=== PATIENT | male | born 1960 | race Caucasian/White ===

== ENCOUNTER → 2018-03-15 | Outpatient (CLI) | payer OTHER ==
--- NOTE | 2018-03-15 08:53 | US ---
EXAMINATION TYPE: US duplex aorta DATE OF EXAM: 03/15/2018 COMPARISON: NONE CLINICAL HISTORY: I65.23 Occlusion/stenosis bilateral carotid arteri. EXAM MEASUREMENTS: Abdominal Aorta: Proximal: 2.6 x 2.1 cm Mid: 1.9 x 2.0 cm Distal: 2.1 x 1.8 cm Bifurcation: 0.8 and 0.7 cm. This area is obscured by gas in transverse view. Questionable mild ectasia of aorta; no calcifications of aorta IMPRESSION: 1. Minimal ectasia of the distal abdominal aorta. No aneurysm is evident. 2. Atherosclerotic changes within the aorta.
--- NOTE | 2018-03-15 09:00 | US ---
EXAMINATION TYPE: US carotid duplex BILAT DATE OF EXAM: 03/15/2018 COMPARISON: NONE CLINICAL HISTORY: I65.23 Occlusion/stenosis bilateral carotid arteri. EXAM MEASUREMENTS: RIGHT: Peak Systolic Velocity (PSV) cm/sec ----- Right CCA: 77.6 ----- Right ICA: 79.3 ----- Right ECA: 89.5 ICA/CCA ratio: 1.0 RIGHT: End Diastole cm/sec ----- Right CCA: 30.3 ----- Right ICA: 34.3 ----- Right ECA: 25.6 LEFT: Peak Systolic Velocity (PSV) cm/sec ----- Left CCA: 89.0 ----- Left ICA: 103.9 ----- Left ECA: 79.8 ICA/CCA ratio: 1.2 LEFT: End Diastole cm/sec ----- Left CCA: 32.8 ----- Left ICA: 38.5 ----- Left ECA: 23.6 VERTEBRALS (direction of flow): Right Vertebral: Antegrade Left Vertebral: Antegrade Rhythm: Normal Mild atherosclerotic changes in bilateral bulbs and heterogeneous plaque in left proximal ICA There is a small plaque without stenosis within the right carotid bulb. Intimal thickening is present on the left. A large plaque is at the left internal carotid artery. Significant flow-limiting stenos is by velocity and ovaries not evident. There is turbulent flow and filling of the acoustic window Do ppler waveforms. IMPRESSION: 1. Atheromatous plaquing without significant flow-limiting stenosis. Criteria for Assigning % of Stenosis / Diameter reduction (Estimation based on the indirect measurements of the internal carotid artery velocities (ICA PSV). 1. Normal (no stenosis)=ICA PSV < 125 cm/s: ratio < 2.0: ICA EDV<40 cm/s. 2. Less than 50% stenosis=ICA PSV < 125 cm/s: ratio < 2.0: ICA EDV<40 cm/s. 3. 50 to 69% stenosis=ICA PSV of 125 to 230 cm/s: ration 2.0 ? 4.0: ICA EDV 40-100 cm/s. 4. Greater than 70% stenosis to near occlusion= ICA PSV > 230 cm/s: ratio > 4.0: ICA EDV > 100 cm/s. 5. Near occlusion= ICA PSV velocities may be low or undetectable: variable ratio and ICA EDV. 6. Total occlusion=unable to detect flow.
== END ==
LOC: RADUSWWP 06:49
PROVIDERS: ATTEND Family Medicine
DX: I70.0 Atherosclerosis of aorta (principal); I65.23 Occlusion and stenosis of bilateral carotid arteries
CPT/HCPCS: 93880; 93979

== ENCOUNTER → 2018-04-30 | Outpatient (CLI) | payer OTHER ==
--- NOTE | 2018-04-30 12:47 | CTL ---
EXAMINATION TYPE: CT Low Dose Lung DATE OF EXAM ORDERED: 04/30/2018 HISTORY: . Lung cancer screening CT DLP: [address] CTDI: 1.95 mGy Automated exposure control for dose reduction was used. SCREENING VISIT: Initial COMPARISON: None TECHNIQUE: Low dose computed tomography scan was performed through the chest at 1 mm thick sections a nd reconstructed images in the coronal plane at [address] DIAGNOSTIC QUALITY: Limited, but interpretable FINDINGS: LUNG NODULES: Present, detailed below: There is thickening at the left apex estimated at 2.6 x 2.1 cm this could be some apical scarring. Mo nitoring is recommended. There is some thickening along the right lateral apex measuring 1.6 x 1.2 cm in size. Series 5 image 51. LUNGS: COPD: Severity: Moderate. This includes emphysematous blebs and bulla as well as some mild peribronch ial thickening could be chronic bronchitis. Fibrosis: Severity: Mild Lymph nodes: None Other findings: None RIGHT PLEURAL SPACE: Effusion: None Calcification: None Thickening: None Pneumothorax: None LEFT PLEURAL SPACE: Effusion: None Calcification: None Thickening: None Pneumothorax: None HEART: Heart Size: Normal Coronary calcification: Mild Pericardial effusion: None OTHER FINDINGS: Upper abdomen: Normal Bony thorax: Normal Supraclavicular region: Normal Other: Ascending thoracic aorta at the level of main pulmonary artery is 3.7 cm the main pulmonary ar emily 0.9 cm. IMPRESSION: 1. Probably benign findings FOLLOW UP CT CHEST RECOMMENDATION: Yes follow-up standard CT chest [address] LUNG RAD: Lung-Rad 3 Probably Benign
== END | disposition home or self-care (01) ==
LOC: RADCTMAIN 12:16
PROVIDERS: ATTEND Family Medicine
DX: Z12.2 Encounter for screening for malignant neoplasm of respiratory organs (principal); Z87.891 Personal history of nicotine dependence

== ENCOUNTER → 2018-08-04 | Outpatient (CLI) | payer OTHER ==
--- NOTE | 2018-08-04 08:41 | CTL ---
EXAMINATION TYPE: CT Low Dose Lung DATE OF EXAM ORDERED: 08/04/2018 HISTORY: Long-term tobacco use. Abnormal prior study. Lung cancer screening CT DLP: [address] CTDI: 1.61 mGy Automated exposure control for dose reduction was used. SCREENING VISIT: Second study COMPARISON: Low-dose lung screening CT April 30, 2018 TECHNIQUE: Low dose computed tomography scan was performed through the chest at 1 mm thick sections a nd reconstructed images in the coronal plane at [address] DIAGNOSTIC QUALITY: Satisfactory FINDINGS: LUNG NODULES: No new nodules are evident. Persistent stable right apical bulla and bleb formation with pleural thickening, stable scarlike opac ity posterior lateral right lung apex measuring 2.3 x 1.1 cm axial image 45. Findings favor postinfla mmatory change. Focal masslike posterior left apical pleural/parenchymal scarring axial image 24 measures 2.6 x 1.7 c m unchanged from prior. This also strongly favors postinflammatory change. LUNGS: COPD: Severity: Moderate Fibrosis: Severity: Moderate biapical Lymph nodes: Prominent but subcentimeter Other findings: None BILATERAL PLEURAL SPACE: Effusion: None Calcification: None Thickening: None Pneumothorax: None HEART: Heart Size: Normal Coronary calcification: Mild to moderate Pericardial effusion: None OTHER FINDINGS: Upper abdomen: None Bony thorax: Mild multilevel spurring Supraclavicular region: None Other: Aorta measures up to 3.6 cm at level of the bifurcation. Enlarged right and left pulmonary art eries redemonstrated, CT findings suggestive of underlying pulmonary artery hypertension. IMPRESSION: Chronic emphysematous and postinflammatory changes. No suspicious nodules. FOLLOW UP CT CHEST RECOMMENDATION: Annual low-dose lung screening CT CT LUNG RAD: Lung-Rad 2 Benign Appearance or Behavior
== END ==
LOC: RADCTMAIN 07:17
PROVIDERS: ATTEND Family Medicine
DX: Z12.2 Encounter for screening for malignant neoplasm of respiratory organs (principal); J43.9 Emphysema, unspecified; Z87.891 Personal history of nicotine dependence

== ENCOUNTER → 2019-04-08 | Outpatient (CLI) | payer OTHER ==
[2019-04-08 10:36] LABS: HCT 42.3 % (39.0-53.0); HGB 13.8 gm/dL (13.0-17.5); MCH 31.9 pg (25.0-35.0); MCHC 32.6 g/dL (31.0-37.0); MCV 97.9 fL (80.0-100.0); Mean Platelet Volume 7.4; Platelet Count 354 k/uL (150-450); RBC 4.32 m/uL (4.30-5.90); WBC 9.9 k/uL (3.8-10.6)
[2019-04-08 10:44] LABS: ALT 14 U/L (4-49); AST 21 U/L (17-59); African American GFR (CKD) >90 (>60 ml/min/1.73 sqM); Albumin 4.2 g/dL (3.5-5.0); Alkaline Phosphatase 82 U/L (38-126); Anion Gap 7 mmol/L; Blood Urea Nitrogen 12 mg/dL (9-20); Calcium 9.8 mg/dL (8.4-10.2); Carbon Dioxide 27 mmol/L (22-30); Chloride 103 mmol/L (98-107); Glucose 94 mg/dL (74-99); Non-African American GFR(CKD) 87 (>60 ml/min/1.73 sqM); Potassium 4.6 mmol/L (3.5-5.1); Sodium 137 mmol/L (137-145); Total Bilirubin 0.5 mg/dL (0.2-1.3); Total Protein 6.9 g/dL (6.3-8.2)
[2019-04-08 10:51] LABS: INR 0.9 (<1.2); Prothrombin Time 9.7 sec (9.0-12.0)
[2019-04-08 10:56] LABS: Appearance,Urine Clear (Clear); Bacteria,Urine Rare /hpf; Bilirubin,Urine Negative (Negative); Blood,Urine Trace (Negative); Color,Urine Yellow; Glucose,Urine (UA) Negative (Negative); Ketones,Urine Negative (Negative); Leukocyte Esterase,Urine Negative (Negative); Mucus,Urine Rare /hpf; Nitrite,Urine Negative (Negative); Protein,Urine Trace (Negative); RBC,Urine 1 /hpf (0-5); Specific Gravity,Urine 1.008 (1.001-1.035); Urobilinogen,Urine <2.0 mg/dL (<2.0); WBC,Urine <1 /hpf (0-5)
== END | disposition home or self-care (01) ==
LOC: LABPAT 09:53
PROVIDERS: ATTEND Orthopaedic Surgery Sports Medicine
DX: Z01.818 Encounter for other preprocedural examination (principal); Z01.812 Encounter for preprocedural laboratory examination
CPT/HCPCS: 80053; 81001; 85027; 85610; 85730; 87070; 93005

== ENCOUNTER 2019-04-28 10:52 | Day surgery (SDC) | payer OTHER ==
[2019-04-21 13:48] VITALS: BMI 23.1
[~2019-04-28 10:52] MED LIST: ACETAMINOPHEN TAB 500 MG TAB PO ONE; DEXAMETHASONE SOD PHOSPHATE 10 MG/ML 1 ML VIAL IV ONE; GABAPENTIN 300 MG CAP PO ONE; HYDROmorphone 0.5 MG/0.5 ML SYRINGE IVP PRN; LIDOCAINE 1% 20 ML VIAL (10MG/ML) FOR IV START INTRADERMA PRN; MELOXICAM 7.5 MG TAB PO ONE; MIDAZOLAM 2 MG/2 ML VIAL IV PRN; ONDANSETRON 4 MG/2 ML VIAL IVP ONE; ROPIVACAINE 246.25 MG, EPINEPHrine 0.5 MG, KETOROLAC 30 MG, cloNIDine HCL/PF 80 MCG, WA... MISCELLANE ONE; SCOPOLAMINE 1.5MG/72HR PATCH TRANSDERM ONE; TRANEXAMIC ACID 1,000 MG in SODIUM CHLORIDE 0.9% 100 ML IVPB ONE
[2019-04-28] MEDS: LACTATED RINGERS 1,000 ML IV SCH ×4 (11:19→23:57)
[2019-04-28] MEDS ORDERED: fentaNYL (PF) 50 MCG/ML 2 ML AMP IV ONE (11:40)
[2019-04-28] MEDS ORDERED: TRANEXAMIC ACID 1,000 MG/10 ML VIAL ONE (12:30)
[2019-04-28] MEDS ORDERED: PROPOFOL 10 MG/ML 20 ML VIAL IV ONE (12:30)
[2019-04-28] MEDS ORDERED: MIDAZOLAM 2 MG/2 ML VIAL ONE (12:30)
[2019-04-28] MEDS ORDERED: fentaNYL (PF) 50 MCG/ML 2 ML AMP ONE (12:30)
[2019-04-28] MEDS ORDERED: SODIUM CHLORIDE 0.9% 100 ML BAG ONE (12:30)
--- NOTE | 2019-04-28 12:31 | P.ANPRN ---
Procedure Note - Anesthesia - Nerve Block Performed Left Adductor Canal Infusion Time Out Performed: Yes ([id number]) Date of Procedure: 04/28/19 Procedure Start Time: 11:40 Procedure Stop Time: 11:46 Location of Patient: PreOp Indication: Acute Post-Operative Pain, Requested by Surgeon Specifically requested for management of pain by DrBrittany: Colton Yañez Sedation Type: Sedate with meaningful contact maintained Preparation: Sterile Prep Position: Supine Catheter Depth at Skin (cm): 9 Catheter: Indwelling Needle Types: Pajunk Needle Gauge: 20 Ultrasound used to visualize needle placement: Yes Ultrasound used to observe medication spread: Yes Injectate: 0.5% Ropivacaine (see comment for volume) (20cc) Blood Aspirated: No Pain Paresthesia on Injection Noted: No Resistance on Injection: Normal Image Stored and Saved: Yes Events: Uneventful and Well Tolerated
[2019-04-28] MEDS ORDERED: ROPIVACAINE 0.2%-NS ON-Q PUMP 1,090 MG, EMPTY PAIN BALL 1 EACH MISCELLANE PRN (14:50)
[2019-04-28] MEDS ORDERED: MAGNESIUM HYDROXIDE 2,400 MG/10 ML CUP PO PRN (14:54)
[2019-04-28] MEDS ORDERED: hydrOXYzine PAMOATE 25 MG CAP PO PRN (14:54)
[2019-04-28] MEDS ORDERED: ACETAMINOPHEN TAB 325 MG TAB PO PRN (14:54)
[2019-04-28] MEDS ORDERED: NALOXONE 0.4 MG/ML 1 ML VIAL IV PRN (14:54)
[2019-04-28] MEDS ORDERED: BISACODYL 10 MG SUPP RECTAL PRN (14:54)
[2019-04-28] MEDS ORDERED: DIAZEPAM 5 MG TAB PO PRN (14:54)
[2019-04-28] MEDS ORDERED: TEMAZEPAM 15 MG CAP PO PRN (14:54)
[2019-04-28] MEDS ORDERED: ONDANSETRON 4 MG/2 ML VIAL IVP PRN (14:54)
[2019-04-28] MEDS ORDERED: HYDROcodone/APAP 5-325MG 1 EACH TAB PO PRN (14:54)
[2019-04-28] MEDS ORDERED: traMADol 50 MG TAB PO PRN (14:54)
[2019-04-28] MEDS ORDERED: HYDROmorphone 0.5 MG/0.5 ML SYRINGE IVP PRN ×2 (14:54)
[2019-04-28] MEDS ORDERED: NA PHOS,M-B/NA PHOS,DI-BA 133 ML ENEMA RECTAL PRN (14:54)
--- NOTE | 2019-04-28 15:19 | XR ---
EXAMINATION TYPE: XR knee limited LT DATE OF EXAM: 04/28/2019 CLINICAL HISTORY: Postoperative evaluation Two views of the left knee are submitted. Identified are changes of total knee arthroplasty with fem oral and tibial components appearing well seated. Postsurgical soft tissue changes are noted. Align ment is anatomic.
[2019-04-28] MEDS: HYDROcodone/APAP 10-325MG 1 EACH TAB PO PRN ×2 (17:29→23:57)
[2019-04-28] MEDS: HYDROmorphone 1 MG/ML 1 ML SYRINGE IVP PRN ×2 (18:23→21:48)
[2019-04-28] MEDS: ASPIRIN 325 MG TAB PO SCH (20:07)
[2019-04-28] MEDS ORDERED: SENNOSIDES-DOCUSATE SODIUM 1 EACH TAB PO SCH (21:00)
[2019-04-28] MEDS ORDERED: hydrALAZINE HCL 10 MG TAB PO PRN (22:11)
--- NOTE | 2019-04-28 22:15 | P.CONS ---
History of Present Illness - Reason for Consult Consult date: 04/28/19 Consult for medical management - History of Present Illness The patient is a 59-year-old male with a past medical history of COPD and ongoing tobacco use who is currently admitted to the primary orthopedic service who is now post op #0 after having total left knee replacement with Dr. Mullen. The patient is doing well denies any chest pain or shortness of breath, he has been up and ambulatory to the restroom and back, he reports his pain as moderate as a 5 out of 10. Denies any nausea or vomiting or abdominal pain patient has been working with his incentive spirometry and pulling approximately 4000 cc. Review of Systems Pertinent positives per HPI all other review of systems otherwise negative Past Medical History Past Medical History: COPD, Osteoarthritis (OA) Additional Past Medical History / Comment(s): tinnutis left ear History of Any Multi-Drug Resistant Organisms: None Reported Past Surgical History: Hernia Repair, Orthopedic Surgery Additional Past Surgical History / Comment(s): left knee arthroscopy, left knee surgery on knee cap, exploratory surgery on back after injury with bhaskar nail, Past Anesthesia/Blood Transfusion Reactions: Previous Problems w/ Anesthesia Additional Past Anesthesia/Blood Transfusion Reaction / Comm: "heart rate jumped twice" during hernia surgery Past Psychological History: No Psychological Hx Reported Smoking Status: Current some day smoker Past Alcohol Use History: None Reported Additional Past Alcohol Use History / Comment(s): smoking 1/2 PPD. started smoking age 7 Past Drug Use History: Marijuana - Past Family History Mother Family Medical History: Cancer Medications and Allergies Home Medications Medication Instructions Recorded Confirmed Type Aspirin [Adult Low Dose Aspirin EC] 81 mg PO DAILY 04/21/19 04/21/19 History Naproxen Sodium [Aleve] 220 mg PO Q12HR PRN 04/21/19 04/21/19 History Allergies Allergy/AdvReac Type Severity Reaction Status Date / Time meperidine [From Demerol] Allergy Vomiting Verified 04/28/19 11:15 Physical Exam Vitals: Vital Signs Temp Pulse Resp BP Pulse Ox 04/28/19 18:59 97.4 F L 71 12 167/99 91 L 04/28/19 17:50 67 180/93 95 04/28/19 17:35 59 L 180/94 95 04/28/19 17:20 63 183/81 96 04/28/19 17:05 62 157/95 95 04/28/19 16:50 80 144/96 93 L 04/28/19 16:35 69 142/88 95 04/28/19 16:20 61 133/69 95 04/28/19 16:16 97.0 F L 65 16 135/80 97 04/28/19 16:05 65 129/83 95 04/28/19 15:30 55 L 16 120/74 96 04/28/19 15:15 58 L 16 120/74 95 04/28/19 14:59 54 L 16 112/73 96 04/28/19 14:44 96.8 F L 53 L 16 105/70 96 04/28/19 14:14 52 L 16 115/75 96 04/28/19 11:10 98.4 F 64 16 144/84 94 L Intake and Output 04/28/19 04/28/19 04/28/19 06:59 14:59 22:59 Intake Total 1260 825 Output Total 100 800 Balance 1160 25 Intake: IV 1260 100 Intake, IV Titration 500 Amount Lactated Ringers 1,000 ml 500 @ 100 mls/hr IV .Q10H [facility] Rx#:[id number] Oral 225 Output: Urine 800 Estimated Blood Loss 100 Other: # Voids 1 Weight 75.7 kg 75.7 kg Constitutional: No acute distress, conversant, pleasant Eyes: Anicteric sclerae, moist conjunctiva, no lid-lag, PERRLA ENMT: NC/AT,Oropharynx clear, no erythema, exudates Neck:Supple, FROM, no masses, or JVD, No carotid bruits; No thyromegaly Lungs: Clear to auscultation, Clear to percussion, Normal respiratory effort, no accessory muscle use Cardiovascular: Heart regular in rate and rhythm, No murmurs, gallops, or rubs no peripheral edema Abdominal: Soft Nontender, nom distended, no guarding, no rebound or rigidity, Normoactive bowel sounds No hepatomegaly, No splenomegaly, No palpable mass No abdominal wall hernia noted Skin: Normal temperature, tone, texture, turgor, No induration No subcutaneous nodules, No rash, lesions, No ulcers Extremities: EHL and FHL intact bilaterally, no neurovascular compromise, left knee dressing noted without any significant discharge or drainage into the bandages Psychiatric: Alert and oriented to person, place and time, Appropriate affect Intact judgement Neuro: Muscles Strength 5/5 in all 4 extremities, Sensation to light touch grossly present throughout, Cranial nerves II-XII grossly intact. No focal sensory deficits Assessment and Plan Assessment: COPD Smoker Elevated blood pressure without history of hypertension Post left knee replacement History of osteoarthritis Plan: The patient is admitted to primary orthopedic service and is postop day #0 to having left total knee replacement will defer to primary team regarding ongoing analgesic therapy, the patient does have a left adductor cannel infusion of ropivacaine going, he has been up and ambulatory to the restroom. He is noted to have elevated blood pressure without history of hypertension, will start when necessary hydralazine and continue to monitor blood pressure closely. Plan to follow up with cbc, currently on perioperative antibiotics and continue with cefazolin. Continue to follow patient's clinical course For further questions please not hesitate to contact Inpatient Team. We'll continue to follow this patient with you
--- NOTE | 2019-04-28 23:20 | OP ---
OPERATIVE REPORT DATE OF PROCEDURE: 04/28/2019. SURGEON: Colton Yañez M.D. [employer]IN[employer] DEPARTMENT MANAGER: AVILA Su. PREOPERATIVE DIAGNOSIS: Left knee osteoarthrosis. POSTOPERATIVE DIAGNOSIS: Left knee osteoarthrosis. OPERATION: Left total knee arthroplasty. ANESTHESIA: Spinal with sedation. ESTIMATED BLOOD LOSS: 100 mL. TOURNIQUET: Tourniquet time was 55 minutes at 250 mmHg. COMPLICATIONS: None apparent. DRAINS: None. DISPOSITION: Post-Anesthesia Care Unit. INDICATIONS: Dany is a very pleasant 59-year-old male with longstanding history of left knee pain. History and physical examination are consistent with advanced left knee osteoarthrosis. He has been through significant nonoperative management up to this point. Further treatment options were discussed and he has decided to go forward with left total knee arthroplasty. The risks of the procedure were discussed with him in detail. These risks include but are not limited to risk of infection, nerve damage, bleeding, pain, and a small risk of deep vein thrombosis which could lead to fatal pulmonary embolism. There is also risk of loosening of the implant which could require revision operation. The patient understands these risks. All of his questions were answered to his satisfaction. Appropriate informed consent was obtained. DESCRIPTION OF PROCEDURE: The patient was identified in the preoperative holding area. Surgical site was marked by both the patient and myself. He was given 2 grams of Ancef IV for prophylactic purposes. He was then transferred to the operative suite. He was placed supine on the operating room table. Spinal anesthetic was then administered and dosed per the anesthesia department without apparent complication. Examination under anesthesia was then performed. The patient was 2 to 3 degrees shy of full extension. He had 100 degrees of flexion, and the medial collateral ligament, lateral collateral ligament and posterior cruciate ligaments were stable. The tourniquet was then placed high on the left upper thigh, well padded in preparation for surgery. The patient's left lower extremity was then prepped and draped in the usual sterile fashion. A standard surgical pause was then undertaken to ensure that we were operating on the correct site and that appropriate preoperative antibiotics had been given. All staff in the room were in agreement and we proceeded. The outlines of the patella were marked with a surgical pen. A planned 12 cm vertical incision was marked with a surgical pen. He had a previous medial arthrotomy. We did incorporate the medial arthrotomy incision into our incision so the incision curved medially to incorporate this previous incision. The leg was then exsanguinated with an Esmarch dressing. The knee was then flexed and the tourniquet was inflated to 250 mmHg. The total tourniquet time for the procedure was 55 minutes. Incision was then made with a 10-blade scalpel. Dissection was carried down sharply to the overlying fascia. Great care was taken to minimize the skin flaps. The knee was then exposed using a standard medial parapatellar approach. A small cuff of quadriceps tendon was then left for suturing. He was in a bit of valgus preoperatively. A very minimal medial release was then made. This was just enough to place the medial retractors. The medial meniscus was then excised as well. The lateral meniscus was also released anteriorly. The leg was then externally rotated. The patella was everted. The knee was flexed. The retractors were then placed to protect the collateral ligaments. I then proceeded to remove the infrapatellar fat pad. This was excised sharply tangentially with the fibers of the patellar tendon. I then proceeded to remove the peripheral osteophytes. This was done with a rongeur. I then proceeded with the distal femoral resection. He did have near-full extension. A planned 9 mm resection was then done. The femoral canal was then entered in the midline of the femur approximately 10 mm anterior to the origin of the posterior cruciate ligament. The matt was then advanced down to the center of the femur and placed intramedullary. Based on the preoperative radiographs, the angle between the anatomic and mechanical axes of the femur was approximately 4 to 5 degrees. The valgus angle of the distal femoral cutting guide was then set at 4 degrees for the left knee. The distal femoral cutting guide was then advanced over the intramedullary matt. This was seated firmly against the femur. I then, as mentioned, planned to take 9 mm off the distal femur. The cutting block was then secured onto the femur with pins. The jig was then removed. The distal femoral cut was made through the slot of the block. The pins were then removed. The distal femoral cutting block was removed. The accuracy of the distal femoral cuts was checked with 2 flat bars. I then proceeded with femoral sizing. The posterior referencing sizing guide was held firmly against the resected distal surface of the femur. The posterior condyles were resting on the posterior plane of the guide. The sizing stylus was then placed onto the anterior femur. The size was measured as a size 10. I then assessed for femoral rotation. The plan was for 3 degrees of external rotation. Three degrees of external rotation was placed onto the jig. These holes were then marked. I then confirmed the rotation by 3 separate methods. This was done using the epicondylar axis as well as Whitesides line and posterior referencing. It was deemed that the external rotation was proper. I then went forward with placing the femoral cutting block. This was placed over the previously placed pin holes. The Bebo wing was then placed onto the anterior slots to ensure that we would not notch the anterior femur with the anterior femoral cut. I then proceeded with the anterior femoral cut. This was flush with the anterior cortex of the femur. Posterior cuts were then made followed by the anterior chamfer cut and then the posterior chamfer cut. The cutting block was then removed. Throughout the resection, the collateral ligaments were protected with retractors. I then placed a trial size 10 femur. It fit very nice medial to lateral and fit flush to the distal end of the femur. The drill holes were then made. I then proceeded with the tibial cut. I planned for a cruciate-retaining knee. The guide was placed and set for varus, valgus and for slope. The height was set for an approximate 2 mm resection from the lateral tibial plateau, which was the lower side. I was happy with the alignment and the amount of resection. The cutting block was then pinned to the proximal tibia. The alignment matt was removed and the proximal tibia was resected with a reciprocating saw. Again this was done with retractors protecting the collateral ligaments as well as the posterior cruciate ligament. I then proceeded to evaluate the flexion and extension gaps. A 10 mm block was then placed. The flexion and extension gaps were equal. I then proceeded with resection of the posterior osteophytes. He had very minimal posterior osteophytes. This was done using a curved osteotome. This resected the posterior osteophytes, and posterior capsule stripping was done off the posterior aspect of the femur at this time. The osteophytes were then removed. I then proceeded with resection of the patella. The thickness of the patella was measured using the caliper. The thickness of the patella was 25 mm. Thickness of the anticipated patellar dome was then taken into account. The resection was then performed and confirmed to be equal in 4 quadrants using a caliper. Approximately 14 mm of bone remained after resection. A 32 x 8.5 standard patellar trial was then placed. The holes were drilled and the trial was then placed. I then proceeded with sizing the tibial plate. A size G tibial plate fit very nicely. I then placed the trial femur, the tibial tray and the patellar button. A 10 mm trial tibial insert was also placed. The components fit very nicely. He had full extension and flexion. The extension and flexion gaps were equal and stable to both varus and valgus stress. The patella tracked appropriately. Tibial tray rotation was then marked with a Bovie. This was externally rotated properly. I then proceeded with tibial preparation. I first drilled the femoral holes and removed the femoral component. The tibial tray was then set for proper external rotation as well as mediolateral placement onto the tibia. It was then pinned into place. I then proceeded with punching the keel. I then decided to proceed with cementing of all of our components. The knee was thoroughly irrigated with sterile saline solution via pulse lavage. The lateral geniculate artery was identified and cauterized. All blood was removed from the bone of the tibia, femur and patella with pulse lavage. I then proceeded with cementing. Two packs of antibiotic bone cement were prepared on the back table by the surgical corsetier. I then proceeded with cementing of the tibia first. The cement was impacted into the keel as well as deeply seated into the bone. A second coat of cement was then placed. The tibia was then impacted into place. Excess cement was removed with [place]'s and Joker's. I then proceeded with cementing of the femoral component. The femoral component was also cemented using standard technique. Excess cement was removed. A 10 mm trial insert was then placed into the knee. It was brought into full extension with a constant axial load placed until the cement had hardened. The patellar component was then cemented. This was held firmly with a compressive device until the cement had dried. When the cement had dried, the knee was taken out of extension. All excess cement was removed from around the prosthesis. I then trialed with a 10 mm insert. The flexion and extension gaps were appropriate. The knee was stable. It came into full extension. I decided to go forward with a 10 mm cross-linked cruciate-retaining tibial insert. Polyethylene was then placed onto the tibial tray and locked into place. The knee was then reduced. The knee was again further irrigated with sterile saline solution with antibiotic added. The tourniquet was then deflated. The total tourniquet time for the procedure was 55 minutes at 250 mmHg. Final components were a Daniel Persona size 10 cruciate-retaining femoral component, a size G tibial tray, a 10 mm medial-congruent cruciate-retaining polyethylene insert, and a 32 x 8.5 mm patella. I then proceeded with closure. Again the knee was thoroughly irrigated. The quadriceps tendon and the medial retinaculum were reapproximated with a #2 Ethibond suture. The extensor mechanism was then closed with a running #2 Quill suture. Subcutaneous tissues were closed with 2-0 Vicryl interrupted suture. The skin was closed with a running 3-0 Quill suture. Dermabond was applied to the incision. Sterile compressive dressing was then applied. All sponge and needle counts were deemed correct prior to closure. The patient tolerated the procedure without apparent complication. He was transferred to the recovery room in stable condition. MMODL / IJN: [id number] /
[2019-04-29] MEDS: HYDROcodone/APAP 10-325MG 1 EACH TAB PO PRN (05:22)
[2019-04-29] MEDS: ASPIRIN 325 MG TAB PO SCH (07:04)
[2019-04-29 07:41] VITALS: BP 135/86; PULSE 65; RESP 16; TEMP 97.8
[2019-04-29 07:48] LABS: Basophils # (A) 0.1 k/uL (0-0.2); Basophils % (A) 0 %; Eosinophils # (A) 0.1 k/uL (0-0.7); Eosinophils % (A) 0 %; HCT 35.5 % (39.0-53.0); HGB 11.9 gm/dL (13.0-17.5); Lymphocytes # (A) 2.1 k/uL (1.0-4.8); Lymphocytes % (A) 10 %; MCH 32.9 pg (25.0-35.0); MCHC 33.5 g/dL (31.0-37.0); MCV 98.3 fL (80.0-100.0); Mean Platelet Volume 8.2; Monocytes # (A) 1.7 k/uL (0-1.0); Monocytes % (A) 8 %; Neutrophils # (A) 17.2 k/uL (1.3-7.7); Neutrophils % (A) 81 %; Platelet Count 265 k/uL (150-450); RBC 3.61 m/uL (4.30-5.90); WBC 21.3 k/uL (3.8-10.6)
--- NOTE | 2019-04-29 08:50 | P.DS ---
Providers Expected date of discharge: 04/29/19 Attending physician: Colton Yañez Consults: 04/28/19 14:54 Consult Physician Routine Consulting Provider: Rex Valero Consult Reason/Comments: post op medical management Do you want consulting provider notified?: Yes Primary care physician: Arnaud Cardenas - Discharge Diagnosis(es) (1) Status post total left knee replacement Patient was admitted to the OR on 04/28/2019 to undergo a left total knee arthroplasty. He had failed conservative measures as an outpatient desired to proceed with elective surgery after given informed consent. He underwent the above procedure which he tolerated well without complication. Postoperative hospital remained without complication. On day of discharge he is afebrile, vital signs stable, labs within acceptable ranges, tolerating by mouth meds and diet, voiding without difficulty, positive flatus, denies abdominal pain or calf pain, pain is controlled on oral pain medication and has no new complaints. Wound is benign, neurovascular status is intact, calf is soft and nontender, abdomen soft and nontender. Review of systems is negative for numbness, tingling, fever, chills, chest pain, shortness of breath, nausea, vomiting, dizziness, headaches, slurred speech or other Current Visit: Yes Status: Acute Priority: Medium Procedures: Left TKA Patient Condition at Discharge: Good Plan - Discharge Summary Discharge Rx Participant: No New Discharge Prescriptions: New Aspirin 325 mg PO BID #60 tab Docusate [Colace] 100 mg PO BID #60 capsule HYDROcodone/APAP 7.5-325MG [[place] 7.5-325] 1 - 2 each PO Q6HR PRN #56 tab PRN Reason: Pain No Action Naproxen Sodium [Aleve] 220 mg PO Q12HR PRN PRN Reason: Pain Aspirin [Adult Low Dose Aspirin EC] 81 mg PO DAILY Discharge Medication List Aspirin [Adult Low Dose Aspirin EC] 81 mg PO DAILY 04/21/19 [History] Naproxen Sodium [Aleve] 220 mg PO Q12HR PRN 04/21/19 [History] Aspirin 325 mg PO BID #60 tab 04/29/19 [Rx] Docusate [Colace] 100 mg PO BID #60 capsule 04/29/19 [Rx] HYDROcodone/APAP 7.5-325MG [[place] 7.5-325] 1 - 2 each PO Q6HR PRN #56 tab 04/29/19 [Rx] Follow up Appointment(s)/Referral(s): Colton Yañez MD [STAFF PHYSICIAN] - 10 Days Ambulatory/Diagnostic Orders: [facility] [DME.AMB1] Location: None Selected Complete Blood Count w/diff [LAB.AMB] Time Frame: 1 Week, Location: Determined By Patient Activity/Diet/Wound Care/Special Instructions: Keep wound clean and dry Take meds as directed Follow-up with Dr. Yañez in office Weight bear as tolerated May shower in 3 days if no bleeding Discharge Disposition: HOME WITH HOME HEALTH SERVICES
[2019-04-29] MEDS ORDERED: MULTIVITAMINS, THERA 1 EACH TAB PO SCH (12:00)
--- NOTE | 2019-04-29 17:33 | P.PN ---
Subjective Progress Note Date: 04/29/19 Principal diagnosis: left knee pain Patient is a 59-year-old male The past medical history of COPD, arthritis, and tobacco abuse who presented for elective left total knee arthroplasty. He underwent the procedure without any immediate postoperative complications. Patient seen and examined at bedside. He denies any pain, no nausea, no vomiting, no chest pain, no shortness of breath. Objective - Vital Signs Vital signs: Vital Signs Temp 97.8 F 04/29/19 07:00 Pulse 65 04/29/19 07:00 Resp 16 04/29/19 07:00 BP 135/86 04/29/19 07:00 Pulse Ox 94 L 04/29/19 07:00 Intake & Output 04/28/19 04/29/19 04/29/19 18:59 06:59 18:59 Intake Total 1585 500 225 Output Total 100 1600 Balance 1485 -1100 225 Weight 75.7 kg Intake: IV 1360 Intake, IV Titration 500 Amount Lactated Ringers 1,000 ml 500 @ 100 mls/hr IV .Q10H MELISSA Rx#:[id number] Oral 225 225 Output: Urine 1600 Estimated Blood Loss 100 Other: # Voids 1 - Exam Psych: Alert, oriented, appropriate affect General: non toxic, no distress, appears at stated age Derm: Dressing in place over left knee warm, dry Head: atraumatic, normocephalic, symmetric Eyes: EOMI, no lid lag, anicteric sclera Mouth: no lip lesion, mucus membranes moist Cardiovascular: S1S2 reg, no murmur, positive posterior tibial pulse bilateral, Lungs: CTA bilateral, no rhonchi, no rales , no accessory muscle use Abdominal: soft, nontender to palpation, no guarding, no appreciable organomegaly Ext: no gross muscle atrophy, trace edema left knee, no contractures Neuro: CN II-XI grossly intact, no focal neuro deficits - Labs CBC & Chem 7: 04/29/19 06:45 Labs: Abnormal Lab Results - Last 24 Hours (Table) 04/29/19 Range/Units 06:45 WBC 21.3 H (3.8-10.6) k/uL RBC 3.61 L (4.30-5.90) m/uL Hgb 11.9 L (13.0-17.5) gm/dL Hct 35.5 L (39.0-53.0) % Neutrophils # 17.2 H (1.3-7.7) k/uL Monocytes # 1.7 H (0-1.0) k/uL Assessment and Plan Assessment: Patient is a 59-year-old male here with left total knee arthroplasty -Management per ortho Leukocytosis -Suspect reactive -Repeat CBC in 1 week wimaria ines Cardenas Acute blood loss anemia -Anticipate to recover on its own COPD -Not chronically on medications and we'll not start at this point in time Medically optimized for discharge
== END 2019-04-29 10:45 | disposition home health service (06) ==
LOC: OR 10:52 → EDSTATUS 12:30 → 4SSUR 14:36 → OR 04-29 10:45
PROVIDERS: ATTEND Orthopaedic Surgery Sports Medicine
DX: M17.12 Unilateral primary osteoarthritis, left knee (principal); J44.9 Chronic obstructive pulmonary disease, unspecified; F17.210 Nicotine dependence, cigarettes, uncomplicated; D62 Acute posthemorrhagic anemia; D72.829 Elevated white blood cell count, unspecified; Z88.5 Allergy status to narcotic agent; Z87.19 Personal history of other diseases of the digestive system; Z98.890 Other specified postprocedural states; Z79.82 Long term (current) use of aspirin; Z79.1 Long term (current) use of non-steroidal anti-inflammatories (NSAID)
CPT/HCPCS: 97161; 64448; 76942; 85025; 88300; 73560; 27447; C1776; C1713; J2250; J0171; J1100; J0690 ×2; J2405; J3010; J1885; J1170; J2795 ×2; J2704; J0735

== ENCOUNTER 2020-03-15 09:38 | Day surgery (SDC) | payer OTHER ==
[2020-03-14 10:47] VITALS: BMI 21.7
[~2020-03-15 09:38] MED LIST changes: -ACETAMINOPHEN TAB 500 MG TAB PO ONE; -DEXAMETHASONE SOD PHOSPHATE 10 MG/ML 1 ML VIAL IV ONE; -GABAPENTIN 300 MG CAP PO ONE; -HYDROmorphone 0.5 MG/0.5 ML SYRINGE IVP PRN; +LACTATED RINGERS 1,000 ML IV SCH; +LIDOCAINE 1% (10MG/ML) FOR IV START INTRADERMA PRN; -LIDOCAINE 1% 20 ML VIAL (10MG/ML) FOR IV START INTRADERMA PRN; -MELOXICAM 7.5 MG TAB PO ONE; -MIDAZOLAM 2 MG/2 ML VIAL IV PRN; -ONDANSETRON 4 MG/2 ML VIAL IVP ONE; -ROPIVACAINE 246.25 MG, EPINEPHrine 0.5 MG, KETOROLAC 30 MG, cloNIDine HCL/PF 80 MCG, WA... MISCELLANE ONE; -SCOPOLAMINE 1.5MG/72HR PATCH TRANSDERM ONE; -TRANEXAMIC ACID 1,000 MG in SODIUM CHLORIDE 0.9% 100 ML IVPB ONE
[2020-03-15 09:56] VITALS: RESP 16; TEMP 98
[2020-03-15] MEDS ORDERED: PROPOFOL 10 MG/ML 20 ML VIAL IV ONE (10:54)
--- NOTE | 2020-03-15 11:35 | P.PCN ---
Date of Procedure: 03/15/20 Description of Procedure: BRIEF HISTORY: Patient is a 60-year-old male presenting for outpatient colonoscopy for screening for malignant neoplasm of the colon. Last colonoscopy 16 years ago. No change in bowel habits or abdominal pain. His mother at 52 of colon cancer. PROCEDURE PERFORMED: Colonoscopy with polypectomy. PREOPERATIVE DIAGNOSIS: Screening for malignant neoplasm in the colon colonoscopy colonoscopy 16 years ago, family history of colon cancer in his mother. ESTIMATED BLOOD LOSS: Minimal. IV sedation per Anesthesia. PROCEDURE: After informed consent was obtained, the patient, was brought into the endoscopy unit. IV sedation was administered by Anesthesia under continuous monitoring. Digital rectal examination was normal. Initially the Olympus CF-190 flexible video colonoscope was then inserted in the rectum, gradually advanced into the cecum without any difficulty. Careful examination was performed as the scope was gradually being withdrawn. Ileocecal valve and the appendiceal orifice were visualized and appeared normal. Prep was fair. Mucosa of the cecum, ascending colon, transverse colon, descending colon, sigmoid colon, and rectum appeared normal. A few scattered diverticula in the sigmoid colon. Diminutive 2 mm ascending colon polyp removed with cold snare polypectomy. Flat 10 mm transverse colon polyp on the edge of a fold removed with cold forcep polypectomy. Retroflexion was performed in the rectum and no lesions were seen. The patient tolerated the procedure well. IMPRESSION: Flat transverse colon polyp removed with cold forcep polypectomy. Diminutive ascending colon polyp removed with cold snare polypectomy. Mild sigmoid diverticulosis. Fair prep. RECOMMENDATIONS: Findings of this examination were discussed with the patient and his family. Okay to resume diet. Okay to resume medications. Await pathology from polypectomy. Recommend repeat colonoscopy in 3 years for high-risk colon polyp and fair prep, pending pathology from polypectomy.
[2020-03-15 11:50] VITALS: BP 137/80; PULSE 59
== END 2020-03-15 12:03 | disposition home or self-care (01) ==
LOC: ORWHC2ENDO 09:38
PROVIDERS: ATTEND Internal Medicine
DX: Z12.11 Encounter for screening for malignant neoplasm of colon (principal); K63.5 Polyp of colon; K57.30 Diverticulosis of large intestine without perforation or abscess without bleeding; Z80.0 Family history of malignant neoplasm of digestive organs; Z72.0 Tobacco use; Z88.5 Allergy status to narcotic agent; Z79.1 Long term (current) use of non-steroidal anti-inflammatories (NSAID); Z98.890 Other specified postprocedural states
CPT/HCPCS: 88305; 45380; 45385; J2704

== ENCOUNTER → 2020-04-11 | Outpatient (CLI) | payer OTHER ==
--- NOTE | 2020-04-11 10:37 | CTL ---
EXAMINATION TYPE: CT Low Dose Lung DATE OF EXAM ORDERED: 04/11/2020 HISTORY: Personal history tobacco use. Lung cancer screening CT DLP: 62 mGycm Automated exposure control for dose reduction was used. SCREENING VISIT: Second follow-up COMPARISON: 08/04/2018 TECHNIQUE: Low dose computed tomography scan was performed through the chest at 1 mm thick sections a nd reconstructed images in the coronal plane at [address] DIAGNOSTIC QUALITY: Satisfactory FINDINGS: LUNG NODULES: None. LUNGS: COPD: Severity: Mild Fibrosis: Severity: Mild Lymph nodes: None Other findings: None RIGHT PLEURAL SPACE: Effusion: None Calcification: None Thickening: None Pneumothorax: None LEFT PLEURAL SPACE: Effusion: None Calcification: None Thickening: None Pneumothorax: None HEART: Heart Size: Normal Coronary calcification: Moderate Pericardial effusion: None OTHER FINDINGS: Upper abdomen: Normal Bony thorax: Normal Supraclavicular region: Normal Other: Ascending thoracic aorta at the level the main pulmonary artery is 4.0 cm. The main pulmonary artery the bifurcation is 2.2 cm. IMPRESSION: Some mild apical scarring and emphysematous change. No suspicious changes suggest neoplas m. FOLLOW UP CT CHEST RECOMMENDATION: Annual low-dose screening CT chest CT LUNG RAD: 2
== END | disposition home or self-care (01) ==
LOC: RADCTMAIN 06:54
PROVIDERS: ATTEND Family Medicine
DX: Z12.2 Encounter for screening for malignant neoplasm of respiratory organs (principal); J98.4 Other disorders of lung; J43.9 Emphysema, unspecified; F17.210 Nicotine dependence, cigarettes, uncomplicated
CPT/HCPCS: 71271

== ENCOUNTER → 2020-06-05 | Outpatient (CLI) | payer OTHER ==
--- NOTE | 2020-06-05 10:21 | MR ---
EXAMINATION TYPE: MR lumbar spine wo con DATE OF EXAM: 06/05/2020 COMPARISON: None HISTORY: Low back pain that goes down right leg. TECHNIQUE: Multiplanar, multisequence images of the lumbar spine were acquired. L1-L2: Posterior broad-based disc bulge causes slight anterior mass effect on the thecal sac. There i s lateral extension of endplate disc complex towards the right neural foramen. L2-L3: No evident disc herniation. Circumferential extension endplate disc complex encroaches somewha t on the foramen on the left likely contributed by the scoliosis. L3-L4: Posterior broad-based disc bulge contacts anterior thecal sac. Circumferential extension of en dplate disc complex encroaches on the neural foramen somewhat on the left. L4-L5: Posterior extension of endplate disc complex may contact the anterior thecal sac, lateral exte nsion endplate disc complex causes some right-sided foraminal encroachment. There is facet arthropath y change. L5-S1: Listhesis contributes to cause bilateral foraminal encroachment, no evident disc herniation. T here is some facet arthropathy changes. Lumbar segments are intact, there is preserved height. No paraspinal masses are identified. Conus m edullaris has a normal appearance. There is a scoliotic curvature to the lumbar spine convex right ce ntered at approximately L3. There is multilevel spondylosis. Endplate discogenic marrow signal change s are present. There is associated loss of disc height and signal at intervertebral levels, multileve l vacuum phenomenon. Anterolisthesis grade 1 L5-S1, bilateral spondylolysis present at L5. Retrolisth esis grade 1 at L4-5, L3-4. No significant spinal stenosis. Abdominal aorta is ectatic at approximate ly 3.4 cm IMPRESSION: Degenerative disc disease, spondylolysis and spondylolisthesis L5-S1, scoliosis. Facet arthropathy ch anges. Abdominal aortic ectasia.
== END ==
LOC: RADMRIMAIN 08:51
PROVIDERS: ATTEND Family Medicine
DX: M51.37 Other intervertebral disc degeneration, lumbosacral region (principal); M43.17 Spondylolisthesis, lumbosacral region; M41.87 Other forms of scoliosis, lumbosacral region
CPT/HCPCS: 72148

== ENCOUNTER → 2020-07-13 | Outpatient (CLI) | payer MEDICARE, OTHER ==
--- NOTE | 2020-07-13 19:04 | CT ---
EXAMINATION TYPE: CT lumbar spine wo con DATE OF EXAM: 07/13/2020 COMPARISON: MRI 06/05/2020 HISTORY: chronic low back pain CT DLP: 465.9 mGycm CONTRAST: None TECHNIQUE: CT of the lumbar spine is performed on a spiral scan at 3 mm thick sections. Reconstructed images are performed in the coronal and sagittal planes. FINDINGS: T12-L1: No focal disc herniation or significant disc bulge is evident. No spinal canal stenosis or neural foraminal stenosis is present. L1-L2: Mild disc bulges anterior thecal sac flattening. L2-L3: No focal disc herniation or significant disc bulge is evident. No spinal canal stenosis or n eural foraminal stenosis is present L3-L4: Mild disc bulges into thecal sac flattening. No AP spinal canal stenosis is present. L4-L5: Right-sided facet hypertrophy is present. Mild disc bulge may be present. L5-S1: Spondylolysis of L5 is evident. There is a grade 1 spondylolisthesis of L5 anteriorly on S1. Rectum disc phenomenon is present throug hout the lumbar spine. Loss of disc height throughout the lumbar spine. There is a 2.8 cm AP dimension midabdominal aorta. There is a nonobstructing left renal stone IMPRESSION: 1. Grade 1 spondylolisthesis of L5 anteriorly on S1. 2. Loss of disc height and vacuum disc phenomenon throughout the lumbar spine.
== END | disposition home or self-care (01) ==
LOC: RADCTMAIN 17:50
PROVIDERS: ATTEND Orthopaedic Surgery
DX: M43.16 Spondylolisthesis, lumbar region (principal)
CPT/HCPCS: 72131

== ENCOUNTER 2020-08-23 11:06 | Day surgery (SDC) | payer MEDICARE, OTHER ==
[2020-08-22 12:06] VITALS: BMI 23.0
[~2020-08-23 11:06] MED LIST changes: -LIDOCAINE 1% (10MG/ML) FOR IV START INTRADERMA PRN
[2020-08-23 11:39] VITALS: RESP 16; TEMP 98.6
[2020-08-23] MEDS ORDERED: LIDOCAINE 1% (10MG/ML) FOR IV START INTRADERMA ONE (11:40)
[2020-08-23] MEDS ORDERED: IOPAMIDOL M200 10 ML VIAL ONE (12:20)
[2020-08-23] MEDS ORDERED: MIDAZOLAM 2 MG/2 ML VIAL ONE (12:20)
[2020-08-23] MEDS ORDERED: fentaNYL (PF) 50 MCG/ML 2 ML AMP ONE (12:20)
[2020-08-23] MEDS ORDERED: DEXAMETHASONE SOD PHOSPHATE 10 MG/ML 1 ML VIAL ONE (12:20)
--- NOTE | 2020-08-23 12:31 | P.PCN ---
Date of Procedure: 08/23/20 Surgeon: Magdalena Major Pathology: none sent Condition: stable Disposition: PACU Description of Procedure: PREOPERATIVE DIAGNOSIS: Lumbar radiculopathy POSTOPERATIVE DIAGNOSIS: Lumbar radiculopathy PROCEDURE 1. Transforaminal epidural steroid injection under fluoroscopic guidance at L2-3 Rt 2. Lumbar epidurogram. SURGEON: Magdalena Major MD ANESTHESIA: Local with 1% lidocaine; IV sedation with Versed and fentanyl. EBL: Minimal PROCEDURE INDICATION: The patient with low back pain and radiculopathy symptoms unresponsive to conservative treatment. PROCEDURE DESCRIPTION / TECHNIQUE: The patient was seen and identified in the preoperative area. Risks, benefits, complications, and alternatives were discussed with the patient. The patient agreed to proceed with the procedure and signed the consent. IV was started, and vital signs were stable. Patient was taken to the OR and time out was completed. The patient was placed in the prone position on procedure table and a pillow was placed under the abdomen to reduce lumbar lordosis. The lumbosacral area was prepped and draped in the usual sterile fashion. Critical pause was taken. Vital signs were closely monitored during the procedure. Conscious sedation was used during the procedure to decrease patients anxiety. The vertebral body of the lumbar vertebra L2 was squared off by tilting the C-arm cephalad then the C-arm was tilted to the oblique position and the target point was at the 6 o'clock position of the pedicle of L2 then skin and deeper tissues were localized with 1% lidocaine. Subsequently, a 22-gauge 3.5- inch spinal needle was advanced under a tunneled view fluoroscopic guidance just underneath the chin of the Randal dog at the . Under lateral fluoroscopy, the needle was then advanced to the middle of the upper one third of the foramen between(L2-3 ). After negative aspiration of CSF and blood and with no paresthesias, 1 mL of omnipaque contrast dye was injected excellent epidurogram and outlining of the L2 nerve root was identified. Subsequently, 2 mL of block solution containing 10 mg of Decadron and 1 mL of Lidocaine 1% PF was injected. Needle was removed intact . At the end of the procedure, skin was cleansed, and bandages were applied. COMPLICATIONS: None COMMENTS: DISPOSITION / PLANS: The patient was placed in a supine position and transferred to the recovery area in a stable condition for observation. There was no evidence of lower extremity motor or sensory deficit after the procedure. Patient was discharged from the recovery room after meeting discharge criteria. Home discharge instructions were given to the patient by the staff.
[2020-08-23] MEDS ORDERED: IV FLUID CONTINUATION 800 ML IV ONE (12:39)
[2020-08-23 13:02] VITALS: BP 122/82; PULSE 77
--- NOTE | 2020-08-23 14:44 | FL ---
Fluoroscopy HISTORY: Pain 9 seconds fluoroscopy time supplied to the referring clinician. 1 intraoperative C-arm images docume nt the procedure. See dictated report from anesthesia.
== END 2020-08-23 13:12 | disposition home or self-care (01) ==
LOC: ORPAIN 11:06
PROVIDERS: ATTEND Anesthesiology
DX: M54.16 Radiculopathy, lumbar region (principal); J44.9 Chronic obstructive pulmonary disease, unspecified
CPT/HCPCS: 64483; J2250; J1100; J2001; J3010; Q9966

== ENCOUNTER 2020-09-11 09:06 | Day surgery (SDC) | payer MEDICARE, OTHER ==
[2020-09-10 11:06] VITALS: BMI 23.6
[2020-09-11] MEDS ORDERED: LACTATED RINGERS 1,000 ML IV ONE (09:35)
[2020-09-11 09:38] VITALS: TEMP 97.8
[2020-09-11] MEDS ORDERED: IOPAMIDOL M200 10 ML VIAL ONE (10:06)
[2020-09-11] MEDS ORDERED: methylPREDNISolone ACETATE 40 MG/ML 1 ML VIAL ONE (10:06)
[2020-09-11] MEDS ORDERED: fentaNYL (PF) 50 MCG/ML 2 ML AMP ONE (10:06)
[2020-09-11] MEDS ORDERED: MIDAZOLAM 2 MG/2 ML VIAL ONE (10:06)
--- NOTE | 2020-09-11 10:23 | P.PCN ---
Date of Procedure: 09/11/20 Procedure(s) Performed: PREOPERATIVE DIAGNOSIS:1- Lumbar radiculopathy . 2-lumbar degenerative disc disease POSTOPERATIVE DIAGNOSIS: Same as preoperative diagnoses. PROCEDURE 1. Transforaminal epidural steroid injection under fluoroscopic guidance at right L2-3 level. (Fluoroscopy images stored on file in the radiology Department ) 2. Lumbar epidurogram . ANESTHESIA: Local with 1% lidocaine 3 ml , moderate sedation with intravenous Versed 2 mg and fentanyle 50 micrograms. EBL: Minimal PROCEDURE INDICATION: The patient with low back pain and radiculopathy symptoms unresponsive to conservative treatment. PROCEDURE DESCRIPTION / TECHNIQUE: The patient was seen and identified in the preoperative area. Risks, benefits, complications, and alternatives were discussed with the patient. The patient agreed to proceed with the procedure and signed the consent. IV was started, and vital signs were stable. Patient was taken to the OR and time out was completed. The patient was placed in the prone position on procedure table and a pillow was placed under the abdomen to reduce lumbar lordosis. The lumbosacral area was prepped and draped in the usual sterile fashion. Critical pause was taken. Vital signs were closely monitored during the procedure. Conscious sedation was used during the procedure to decrease patient s anxiety. Using oblique fluoroscopy, the chin of the ``Randal dog at Right L2-3 level was identified, and the skin and deeper tissues just below was localized with 1% lidocaine. Subsequently, a 22-gauge 3.5-inch spinal needle was advanced under a tunneled view fluoroscopic guidance just underneath the chin of the ``Randal dog at the right L2-3 Under lateral fluoroscopy, the needle was then advanced to the posterior border of the interforaminal space. After negative aspiration of CSF and blood and with no paresthesias, 1 mL Isovue 200 contrast dye was injected excellent epidurogram and outlining of the nerve root Subsequently, 3 mL of block solution containing 80 mg Depo-Medrol and 2 mL of 0.9% normal saline PF was injected. Needle was removed . At the end of the procedure, skin was cleansed, and bandages were applied. COMPLICATIONS:none DISPOSITION / PLANS: The patient was placed in a supine position and transferred to the recovery area in a stable condition for observation. There was no evidence of lower extremity motor or sensory deficit after the procedure. Patient was discharged from the recovery room after meeting discharge criteria. Home discharge instructions were given to the patient by the staff. The patient was reexamined prior to discharge.
[2020-09-11] MEDS ORDERED: IV FLUID CONTINUATION 550 ML IV ONE (10:27)
[2020-09-11 10:29] VITALS: RESP 16
--- NOTE | 2020-09-11 10:47 | FL ---
EXAMINATION TYPE: FL guided pain mgmt statistic DATE OF EXAM: 09/11/2020 HISTORY: Fluoroscopy time 5 seconds of fluoroscopy provided. IMPRESSION: 1. Fluoroscopy time.
[2020-09-11 10:54] VITALS: BP 135/73; PULSE 72
== END 2020-09-11 10:55 | disposition home or self-care (01) ==
LOC: ORPAIN 09:06
PROVIDERS: ATTEND Specialist
DX: M51.16 Intervertebral disc disorders with radiculopathy, lumbar region (principal); Z88.5 Allergy status to narcotic agent
CPT/HCPCS: 64483; J2250; J1030; J3010; Q9966

== ENCOUNTER 2020-11-06 07:49 | Day surgery (SDC) | payer MEDICARE, OTHER ==
[2020-11-02 12:07] VITALS: BMI 23.6
[2020-11-06 08:21] VITALS: TEMP 98.7
[2020-11-06] MEDS ORDERED: LACTATED RINGERS 1,000 ML IV ONE (08:22)
[2020-11-06] MEDS ORDERED: IOPAMIDOL M200 10 ML VIAL ONE (08:38)
[2020-11-06] MEDS ORDERED: MIDAZOLAM 2 MG/2 ML VIAL ONE (08:38)
[2020-11-06] MEDS ORDERED: DEXAMETHASONE SOD PHOSPHATE 10 MG/ML 1 ML VIAL ONE (08:38)
[2020-11-06] MEDS ORDERED: fentaNYL (PF) 50 MCG/ML 2 ML AMP ONE (08:38)
--- NOTE | 2020-11-06 08:56 | P.PCN ---
Date of Procedure: 11/06/20 Surgeon: Magdalena Major Pathology: none sent Condition: stable Disposition: PACU Description of Procedure: PREOPERATIVE DIAGNOSIS: Lumbar radiculopathy POSTOPERATIVE DIAGNOSIS: Lumbar radiculopathy PROCEDURE 1. Transforaminal epidural steroid injection under fluoroscopic guidance at L5- S1 Rt 2. Lumbar epidurogram. SURGEON: Magdalena Major MD ANESTHESIA: Local with 1% lidocaine; IV sedation with Versed and fentanyl. EBL: Minimal PROCEDURE INDICATION: The patient with low back pain and radiculopathy symptoms unresponsive to conservative treatment. PROCEDURE DESCRIPTION / TECHNIQUE: The patient was seen and identified in the preoperative area. Risks, benefits, complications, and alternatives were discussed with the patient. The patient agreed to proceed with the procedure and signed the consent. IV was started, and vital signs were stable. Patient was taken to the OR and time out was completed. The patient was placed in the prone position on procedure table and a pillow was placed under the abdomen to reduce lumbar lordosis. The lumbosacral area was prepped and draped in the usual sterile fashion. Critical pause was taken. Vital signs were closely monitored during the procedure. Conscious sedation was used during the procedure to decrease patients anxiety. The vertebral body of the lumbar vertebra L5 was squared off by tilting the C-arm cephalad then the C-arm was tilted to the oblique position and the target point was at the 6 o'clock position of the pedicle of L5 then skin and deeper tissues were localized with 1% lidocaine. Subsequently, a 22-gauge 3.5- inch spinal needle was advanced under a tunneled view fluoroscopic guidance just underneath the chin of the Randal dog at the . Under lateral fluoroscopy, the needle was then advanced to the middle of the upper one third of the foramen between(L5-S1 ). After negative aspiration of CSF and blood and with no paresthesias, 1 mL of omnipaque contrast dye was injected excellent epidurogram and outlining of the L2 nerve root was identified. Subsequently, 2 mL of block solution containing 10 mg of Decadron and 1 mL of Lidocaine 1% PF was injected. Needle was removed intact . At the end of the procedure, skin was cleansed, and bandages were applied. COMPLICATIONS: None COMMENTS: DISPOSITION / PLANS: The patient was placed in a supine position and transferred to the recovery area in a stable condition for observation. There was no evidence of lower extremity motor or sensory deficit after the procedure. Patient was discharged from the recovery room after meeting discharge criteria. Home discharge instructions were given to the patient by the staff.
[2020-11-06] MEDS ORDERED: IV FLUID CONTINUATION 1,000 ML IV ONE ×2 (09:00)
[2020-11-06 09:24] VITALS: BP 118/79; PULSE 63; RESP 62
--- NOTE | 2020-11-06 10:09 | FL ---
EXAMINATION TYPE: FL guided pain mgmt statistic DATE OF EXAM: 11/06/2020 HISTORY: Fluoroscopy time 47 seconds of fluoroscopy provided. IMPRESSION: 1. Fluoroscopy time.
== END 2020-11-06 09:32 | disposition home or self-care (01) ==
LOC: ORPAIN 07:49
PROVIDERS: ATTEND Anesthesiology
DX: M54.16 Radiculopathy, lumbar region (principal); Z88.5 Allergy status to narcotic agent
CPT/HCPCS: 64483; J2250; J1100; J2001; J3010; Q9966; 99152

== ENCOUNTER → 2020-12-05 | Outpatient (CLI) | payer MEDICARE, OTHER ==
[2020-12-05 11:16] VITALS: BP 124/80; PULSE 68; RESP 18; TEMP 98.1
--- NOTE | 2020-12-05 11:32 | P.PN ---
Progress Note - Text Progress Note Date: 12/05/20 This is a follow-up visit for this 60 years old male with a history of severe and chronic low back pain with radiation to the lower extremity patient diagnosed with lumbar radiculopathy, lumbar spondylosis with stenosis and L5-S1 spondylolisthesis, recently we did right-sided transforaminal epidural steroid injection at L2-3 levels 3, she had minimal benefit from it and he continued to have severe low back pain, the patient already scheduled to see Dr. Rojas, spine surgeon for possible surgical interventions , and he will follow up in the pain clinic when necessary
== END | disposition home or self-care (01) ==
LOC: PNWHC3 10:56
PROVIDERS: ATTEND Specialist
DX: M48.061 Spinal stenosis, lumbar region without neurogenic claudication (principal); M47.26 Other spondylosis with radiculopathy, lumbar region; M43.17 Spondylolisthesis, lumbosacral region
CPT/HCPCS: 99211

== ENCOUNTER → 2021-01-14 | Outpatient (CLI) | payer MEDICARE, OTHER | END | disposition home or self-care (01) | LOC: LABPAT 09:37 | PROVIDERS: ATTEND Orthopaedic Surgery | DX: Z01.812 Encounter for preprocedural laboratory examination (principal) | CPT/HCPCS: 87070 ==

== ENCOUNTER → 2021-01-19 | Outpatient (CLI) | payer MEDICARE, OTHER ==
[2021-01-19 08:48] LABS: Basophils # (A) 0.1 k/uL (0-0.2); Basophils % (A) 1 %; Eosinophils # (A) 0.2 k/uL (0-0.7); Eosinophils % (A) 2 %; HGB 14.8 gm/dL (13.0-17.5); Lymphocytes # (A) 2.9 k/uL (1.0-4.8); Lymphocytes % (A) 26 %; MCH 32.6 pg (25.0-35.0); MCHC 32.1 g/dL (31.0-37.0); MCV 101.5 fL (80.0-100.0); Mean Platelet Volume 7.6; Monocytes # (A) 0.9 k/uL (0-1.0); Monocytes % (A) 8 %; Neutrophils % (A) 62 %; Platelet Count 317 k/uL (150-450); RBC 4.53 m/uL (4.30-5.90); RDW 12.5 % (11.5-15.5); WBC 11.3 k/uL (3.8-10.6)
[2021-01-19 09:00] LABS: INR 0.9 (<1.2)
[2021-01-19 09:22] LABS: Potassium 4.8 mmol/L (3.5-5.1)
== END | disposition home or self-care (01) ==
LOC: LABPAT 08:11
PROVIDERS: ATTEND Orthopaedic Surgery
DX: Z01.812 Encounter for preprocedural laboratory examination (principal); M48.061 Spinal stenosis, lumbar region without neurogenic claudication; M48.07 Spinal stenosis, lumbosacral region
CPT/HCPCS: 36415; 80051; 85025; 85610

== ENCOUNTER 2021-01-22 05:33 | Inpatient (IN) | payer MEDICARE, OTHER ==
[2021-01-18 14:49] VITALS: BMI 23.6
--- NOTE | 2021-01-21 16:50 | P.HPOR ---
History of Present Illness H&P Date: 01/14/21 Chief Complaint: LE weakeness, Low back pain Date of :[birth year] R14 Allergies: Age: 60 year Height: 6' Weight: 172 lbs BP:125/76 BMI: 23.33 kg/m2 Occupation: Retired VAS: 8 CHIEF COMPLAINT: Low back pain HISTORY: Xrays no new xrays taken at the time of todays visit. Trauma or injury No Work-Related No Pain description aching, sharp. Location diffuse Activity Modification yes , unable to complete most of his daily activities due to the severity of the pain. Hand Dominance right DOI: Chronic, no injury or trauma DOS: None TREATMENTS COMPLETED: 6 weeks of PT completed? Yes How many sessions? 12 Did it help? No Physician directed home exercise completed? yes , without improvements to his symptoms. Medications yes List: Meloxicam, without improvements to his symptoms. Alternative interventions Chiropractic?: No Brace: No Injections Yes Did they help? yes (REJI) , temporary improvements but have since waned. RFA: No SUBJECTIVE: The patient presents to the office today for an evaluation of his low back. Since the time of the last appointment he notes that he has not improved any regarding his symptoms. He presents for a pre-operative visit as he has failed all conservative treatments at this time. Regarding his symptoms he notes that they have not changed since the time of the previous appointment. All questions and concerns were addressed at the time of today's visit and he is understanding. The patient wishes to proceed with the scheduled procedure. Of note the patient presents to the office today without the use of any ambulatory aides. Additionally he states that he has not smoked since the time of the last visit. HPI: To review, at the patients previous appointment on 09/12/2020 he was directed to continue with the injections and physical therapy. At the time of the patients last appointment on 11/21/2020 the patient noted that this has not improved his symptoms at all, denying any improvement with conservative treatments. Overall he was unable to complete many of his daily activities due to the severity of the pain. He noted that he spends a considerable amount of his time laying in bed as it is the only thing that brings him relief from his pain. Of note, the patient presented to the office without the use of any ambulatory aides. Mr. Mendoza at that time was ready to discuss surgical options. Patient stated that he stopped smoking at the time of the previous appointment. Patient was previously evaluated on 09/12/2020 for his low back symptoms and pain. He has been going to pain management to where he received 2 injections these have marginally helped him. He continued to have low back pain and pain that radiates on his legs and difficulty with ambulation long distances. He states no bowel bladder incontinence and no perineal numbness or tingling at this time. We discussed at length surgical options versus nonsurgical options and they are somewhat in between what they want to do right now. The patient is still smoking however he is quitting and is down to only a couple cigarettes per day. He denied any other symptoms at this time. The patients' past social, medical, family, surgical history, as well as review of systems, have been reviewed. Please refer to the Neurosurgery History and Physical form that has been scanned in to our electronic medical record system. Review of Systems 14 points review of systems completed and as stated in HPI, all other systems reviewed are negative. Constitutional: Reports as per HPI Past Medical History Past Medical History: COPD, Osteoarthritis (OA) Additional Past Medical History / Comment(s): tinnitis left ear, LOWER BACK PAIN,. hx colon polyps History of Any Multi-Drug Resistant Organisms: None Reported Past Surgical History: Hernia Repair, Joint Replacement, Orthopedic Surgery Additional Past Surgical History / Comment(s): -left knee arthroscopy, left knee surgery- on knee cap, exploratory surgery on back after injury with bhaskar nail, cyst removed from face x2, CYST REMOVED ON RIGHT EYELID , LEFT TOTAL KNEE Past Anesthesia/Blood Transfusion Reactions: Previous Problems w/ Anesthesia Additional Past Anesthesia/Blood Transfusion Reaction / Comment(s): blood pressure went up for hernia surgery Smoking Status: Former smoker - Past Family History Mother Family Medical History: Cancer Additional Family Medical History / Comment(s): colon cancer age 52 Brother(s) Family Medical History: Cancer Additional Family Medical History / Comment(s): brain cancer Medications and Allergies Home Medications Medication Instructions Recorded Confirmed Type Meloxicam [Mobic] 7.5 mg PO DAILY 11/02/20 01/18/21 History Allergies Allergy/AdvReac Type Severity Reaction Status Date / Time meperidine [From Demerol] Allergy Vomiting Verified 01/18/21 14:40 Physical Examination Osteopathic Statement: *. No significant issues noted on an osteopathic structural exam other than those noted in the History and Physical/Consult. General: Awake, alert, appropriate for age, in no acute distress. HEENT: No unusual neck masses around region of lateral neck triangle, thyroid, supraclavicular groove Heart: Regular rate and rhythm, normal S1, S2 and no murmur/gallop. Lungs: Clear to auscultation bilaterally with no use of accessory muscles. Extremities: Skin warm and dry without acute lesions, coloration, temperature, skin intact, no tenderness or erythema Integument: Hairy patches: Absent Dorsal skin dimples: Absent Cafe au lait spots: Absent Surgical incisions: Nothing present. Palpation: Please see Pain drawing on Intake sheet for further detail. no new ttp POSTURAL and MUSCULO-SKELETAL EVALUATION: Coronal Balance: NEUTRAL Recumbent testing: Patient is able to lay flat on back Sagittal Balance: NEUTRAL Shoulder Profile: LEVEL Pelvic Girdle: LEVEL Neck ROM: UNRESTRICTED Lumbar ROM: painful and restricted Shoulder ROM: Symmetrical Hip ROM: Symmetrical Knee ROM: Symmetrical Hands: Normal appearance, symmetrical Feet: Normal appearance, Symmetrical VASCULAR STATUS : LEFT RIGHT Wrist Pulses INTACT INTACT Pedal Pulses (Dors. pedis & post.tibialis) INTACT INTACT Color NORMAL NORMAL Edema Absent Absent NEUROLOGIC EXAMINATION: Mental Status:Awake and alert, fully oriented, with normal attention, concentration and memory, and fluent, appropriate speech. Cranial Nerves: I: Olfactory not tested. II: Visual acuity normal, no visual field deficit noted with confrontation. III,IV: Normal pupillary reflexes & intact extraocular movements without nystag mus. V,: Intact symmetrical facial sensation. VII: Intact symmetrical facial motor movement VIII: Hearing intact. IX,X: Intact gag, swallow, & normal voice. XI: Sternocleidomastoid, trapezius function intact. XII: Tongue midline with normal movements. L'hermitte's Sign: Negative / absent Spurling'Sign: Absent bilaterally. Cubital percussion test: Absent bilaterally. Colin-Tinel sign - Carpal region: Absent bilaterally. Straight Leg Raising: Absent bilaterally. Crossed straight leg raise: negative O8 MOTOR EXAM (0-5/5, N/T) STRENGTH RIGHT LEFT Shoulder Abd (not part of the TANIA score) 5 5 Elbow Flexors 5 5 Elbow Extensor 5 5 Wrist Dorsiflexors 5 5 Finger Abductor 5 5 Human Resources Training Manager 5 5 Hip Flexor (Not part of TANIA Motor score) 5 4 Knee Flexor 5 5 Knee Extensor 5 5 Ankle dorsiflexor 4 4+ Ankle plantarflexion 4 4+ Extensor hallucis 5 5 REFLEXES(0-4/2, NT) RIGHT LEFT Upper Extremities 2 2 Lower Extremities 2 2 Pathological Reflexes RIGHT LEFT Hirsch's Absent Absent Clonus Absent Absent Babinski Absent Absent # Indicates mechanical impairment Muscle appearance: Symmetrical, without signs of atrophy or dystrophy. Rectal Tone: Normal, strong with volition control Sensory system (0-4, N/T) Test type RU KENYON RL LL Joint-Position 2 2 2 2 Vibration 2 2 2 2 Pain & LT sense 2 2 2 2 Dermatomal Deficit: None None L5-S1 L4-S1 Gait and Functional Evaluation: Ambulatory aids: Independent Romberg's test: Intact bilaterally Toe heel walk / heel-toe walk intact while maintaining satisfactory balance? yes Squatting/straightening w/o assistance to a min of 60 degree knee flexion? yes Single leg stance: intact Trendelenburg sign negative bilaterally Hand and finger dexterity intact bilaterally? yes Disdiadochokinesis examination negative bilaterally? yes Results XRAY: multiple view the lumbar spine shows lumbar spondylosis throughout the lumbar spine most significant at L3 to S1. There is a grade 2 L5-S1 spondylolisthesis with likely spondylolysis in this area. This does accentuate on flexion films to around 12 mm. There are no other fractures or dislocations noted. On coronal views there is coronal instability which is notedat L3-L4. No other fractures or dislocations noted. PI/LL mismatch with flattening of the normal lumbar lordosis and >10 deg mismatch. No fracture noted. Levoscoliosis noted and lateral listhesis L4-5 noted. AP pelvis demonstrates congruent femoral last her joints with moderate osteop hytic changes level pelvis and no fracture or dislocation CT of the lumbar spine from 07/13/2020 reveals: This demonstrates L5-S1 grade 1-2 spondylolisthesis with vacuum disc phenomena. There is spondylosis from L3 to S1 with vacuum disc phenomenon these areas as well. There is bony facet arthrosis which is noted as well as bony stenosis secondary to this facet overgrowth. There are no fractures or dislocations noted. At L2-3 this is where the patient is most likely stenotic which is causing his lower extremity difficulties. There are no acute fractures dislocations or other lesions noted. There is PI/LL mismatch with lumbar scoliotic deformity due to ddd, collapse and L4-5 lateral listhesis. MRI of the L spine reviewed demonstrates similar findings to CT scan with spondylosis from L1-S1 with disc degeneration, height loss as well as facet arthrosis, boggy facets flattening of the normal lumbar lordosis PI/LL mismatch as well as Grade I-II spondylolisthesis of L5-S1. There is stenosis related at these levels as well moderate to severe central and foraminal L1-S1. There is deformity noted in the form of a levoscoliosis noted as well. NO fracture dislocation or lesions noted. There is lateral listhesis of L4-5 noted due to scoliosis. Assessment and Plan Assessment: It was my pleasure to have seen and examined Dany. I reviewed the patient's clinical syndrome, physical findings, and imaging studies during the appointment today. It is my impression that the patient has a diagnosis of. 1. L5-S1 grade 1-2 spondylolisthesis and L5-S1 spondylolysis 2. L1 to S1 spondylosis with stenosis 3. Right lower extremity radiculopathy with weakness 4. Lumbar degenerative scoliosis with PI/LL mismatch and deformity 5. Neurogenic claudication Plan: Based on my findings I suggest the following course of action: Surgical Procedure Risk Review Dany Mendoza is a 60 year old male presenting for evaluation of his chronic lumbar spine pain . It was my pleasure to have seen and examined Mr. Mendoza. In our visit today we have had a chance to go over subjective complaints, physical examination findings and treatments, including the natural course history without intervention and various interventional options. The imaging demonstrates L5-S1 grade 1-2 spondylolisthesis and L5-S1 spondylolysis . On physical exam, Mr. Mendoza demonstrates Right lower extremity radiculopathy with weakness. I explained to the patient that as his condition progresses it could cause further exacerbation of his pain and decrease his ambulation . At this time, based on the patients imaging and physical exam, I recommend surgery in the form. I discussed the risk and benefits of this procedure at length with Mr. Mendoza. The patient and his spouse/partneragreed to consider pursuing the procedure mentioned above. Plan: 1. Surgical plan- Stage I: Lateral interbody fusions L1-L5. Stage II: posterior decompression and fusion from T10- Pelvis 2. Review of surgical risks and benefits as well as an educational packet on the proposed surgical procedure. 3. Patient notes that he has stopped smoking since the time of the last appointment. 4. Follow up 2 weeks after the operation. Risks: All surgical procedures come with inherent risks, including those related to positioning, anesthesia, intraoperative findings, and postoperative complications. It is important to understand that surgery does not come with any guarantee of a successful outcome as complications and adverse events are always possible. The patient was given a handout in office today discussing the surgical procedure and risks associated with the intervention, both of which were discussed with the patient. These risks include but are not limited to the following: ? Experiencing same, different or even worse symptoms in back, neck, arms, or legs compared to before surgery. ? Requiring further surgery or other forms of treatment presently or at some time in the future at same or other levels of the intended spine surgery. ? On an extreme but fortunately relatively rare basis severe complication such as blindness, stroke, heart attack, temporary and/or permanent nerve injury, paralysis, coma, or may occur, sometimes without known explanation. ? Surgical complications may include but are not limited to risk of infection, fluid accumulation in the surgical dissection site, including a seroma or hematoma, that requires additional surgery, wound drainage, bleeding, new numbness or weakness, vision changes/loss, spinal fluid leakage, non-healing and/or infected incision, headaches, difficulty or inability to swallow, hoarseness, hemopneumothorax, pneumothorax, impotence, retrograde ejaculation, vaginal dryness; injury to nerves, spinal cord, blood vessels, lymphatics or other vital organs (i.e., bowel injury, injury to the great vessels); heterotopic bone formation; complications related to the hardware such as screws, rods, cages including misplaced hardware, device failure, instrumentation at the wrong spine level, hardware fracture/breakage, or hardware loosening; vertebral failure of the spinal column above or below the newly placed hardware; retained surgical instrumentations or devices and the need for further surgery. ? Medical risks of the planned spine surgery include but are not limited to generalized Infections to the whole body or local areas outside of the surgical site (sepsis), heart attack, bleeding, anaphylaxis, meningitis, seizure, epilepsy, hearing loss, burn romano, laceration of the head or other areas of the body, bruising, hypersensitivity of the skin, bladder over distension; allergic reaction; shoulder injury related to positioning; fat, blood and air clots to other areas of the body like heart, lungs, brain; failure of internal organs such as lungs, kidneys, liver and excessive bleeding. If blood transfusions are necessary, note that transfusions may cause intolerance reactions such as anaphylaxis or other complex reactions. Despite best efforts, the results of spine surgery might not heal in terms of bone, soft tissues such as skin, fascia, ligaments, and joints. Additionally, in order to achieve best possible results, spine surgery may be carried out beyond the initially planned levels and involve decompression, fusion including insertion of hardware at levels other than the original intended area of surgical interest change some portions of the procedure in order to ensure the best possible outcomes. With spine surgery and spinal fusion, there are different off label uses of instrumentation (devices, implants and hardware) as well as biological substances (bone morphogenic proteins, demineralized bone matrix) as well as using extra bone from allograft sources (i.e. cadaver bone) or autograft (iliac crest bone, ribs, or the spine itself). The patient has been given information about these practices and their inherent risks and benefits. [facility] Physician Assistants are medically trained surgical providers who function in the outpatient, inpatient, and operating room setting under the direct supervision of the attending surgeon.They assist in the operating room with direct supervision of the attending surgeons. The patient has had a chance to review all the listed information, has been given print outs detailing this information, and has had all his/her questions answered to their satisfaction. It was my pleasure to have seen and examined Mr. Mendoza. In our visit today we have had a chance to go over my understanding of our patient's current condition, the natural course history without intervention and various interventional options. Questions were invited and answered, and the patient wishes to proceed as outlined above. I have seen and examined the patient for 25 minutes and we have spent more than 50% of the time in repeat and detailed counseling about the patient's condition, its natural course history with out and as much as can be predicted with surgery and re-review of various surgical treatment options. In conclusion,Mr. Mendoza and his spouse/partner requested we proceed with the above suggested surgery and are willing to accept risks and limitations of the suggested surgery as nature of the disease process and our best attempts at treatment for the condition. Thank you again for allowing us to be part of your patient's care. Please don't hesitate to contact me if you have any further questions. Signed and authenticated by: [facility] [address] [id number] In our visit today Mr. Mendoza and I have had a chance to go over my understanding of the patient's current condition, the natural course history without intervention and various interventional options. Questions were invited and answered, and the patient wishes to proceed as outlined above. I will be sure to keep you updated afterMrBrittany Mendoza returns here for further follow-up. Thank you again for your referral. Please do not hesitate to contact me if you have any further questions. Signed and authenticated by: Cody Cr[facility] [address] [place] [address] [address] This message is confidential, intended only for the named recipient(s) and may contain information that is privileged or exempt from disclosure under applicable law. If you are not the intended recipient(s), you are notified that the dissemination, distribution or copying of this information is strictly prohibited. If you received this message in error, please notify the sender then delete this message. Patient verbalizes understanding of the information discussed.
[~2021-01-22 05:33] MED LIST changes: +ACETAMINOPHEN TAB 500 MG TAB PO PRN; -LACTATED RINGERS 1,000 ML IV SCH; +MELOXICAM 7.5 MG TAB PO PRN; +ONDANSETRON 4 MG/2 ML VIAL IVP PRN; +TRANEXAMIC ACID 1,000 MG in SODIUM CHLORIDE 0.9% 100 ML IVPB PRN
[2021-01-22] MEDS ORDERED: LIDOCAINE 1% (10MG/ML) FOR IV START INTRADERMA PRN (05:37)
[2021-01-22] MEDS: LACTATED RINGERS 1,000 ML IV SCH ×2 (06:10→07:15)
[2021-01-22] MEDS ORDERED: MIDAZOLAM 2 MG/2 ML VIAL IV ONE (06:49)
[2021-01-22] MEDS ORDERED: HYDROmorphone 0.5 MG/0.5 ML SYRINGE IVP PRN (07:00)
[2021-01-22] MEDS ORDERED: PHENYLEPHRINE-0.9% NACL SYG 1,000 MCG/10 ML SYRINGE ONE (07:54)
[2021-01-22] MEDS ORDERED: SUCCINYLCHOLINE CHLORIDE 100 MG/5 ML SYR IV ONE (07:54)
[2021-01-22] MEDS ORDERED: FUROSEMIDE 10 MG/ML 2 ML VIAL ONE (07:54)
[2021-01-22] MEDS ORDERED: ePHEDrine SULFATE/0.9% NACL/PF 50 MG/5 ML SYRINGE IV ONE (07:54)
[2021-01-22] MEDS ORDERED: TRANEXAMIC ACID 1,000 MG/10 ML VIAL ONE (07:54)
[2021-01-22] MEDS ORDERED: LIDOCAINE 1% INJ 10MG/ML (20 ML MDV) ONE (07:54)
[2021-01-22] MEDS ORDERED: fentaNYL (PF) 50 MCG/ML 2 ML AMP ONE (07:54)
[2021-01-22] MEDS ORDERED: SODIUM CHLORIDE 0.9% 100 ML BAG ONE ×2 (07:54)
[2021-01-22] MEDS ORDERED: HEPARIN SODIUM,PORCINE 10,000 UNIT/ML 1 ML VIAL ONE (07:54)
[2021-01-22] MEDS ORDERED: ROCURONIUM 10 MG/ML (5 ML VIAL) IV ONE (07:54)
[2021-01-22] MEDS ORDERED: HYDROmorphone (PF) 1 MG/ML ONE (07:54)
[2021-01-22] MEDS ORDERED: KETAMINE 10 MG/ML 20 ML VIAL ONE (07:54)
[2021-01-22] MEDS ORDERED: ONDANSETRON 4 MG/2 ML VIAL ONE (07:54)
[2021-01-22] MEDS ORDERED: SODIUM CHLORIDE 0.9% IRRIG 1,000 ML BTL IRRIGATION ONE (07:54)
[2021-01-22] MEDS ORDERED: ceFAZolin 1,000 MG VIAL ONE (07:54)
[2021-01-22] MEDS ORDERED: PROPOFOL 10 MG/ML 20 ML VIAL IV ONE (07:54)
[2021-01-22] MEDS ORDERED: GLYCOPYRROLATE 0.2 MG/ML 2 ML VIAL ONE (07:54)
[2021-01-22] MEDS ORDERED: MIDAZOLAM 2 MG/2 ML VIAL ONE (07:54)
[2021-01-22] MEDS ORDERED: BUPIVACAINE (PF) 0.25% 30 ML VIAL SQ ONE (07:59)
[2021-01-22] MEDS ORDERED: GELATIN SPONGE,ABSORB (LARGE) 1 EACH SPONGE TOPICAL ONE (07:59)
[2021-01-22] MEDS ORDERED: THROMBIN (BOVINE) 5,000 UNIT VIAL TOPICAL ONE (07:59)
[2021-01-22] MEDS ORDERED: TRANEXAMIC ACID 1,000 MG in SODIUM CHLORIDE 0.9% 100 ML IVPB ONE (09:23)
[2021-01-22] MEDS ORDERED: LACTATED RINGERS 1,000 ML IV ONE ×6 (09:26→19:09)
--- NOTE | 2021-01-22 10:15 | P.ANPRN ---
Procedure Note - Anesthesia - Invasive Line Right Central Line Time Out Performed: Yes (6:49) Date of Procedure: 01/22/21 Time of Procedure: 06:50 Location of Patient: PreOp Preparation: Sterile Prep, Sterile Dressing Ultrasound Used: Yes (Right Internal Jugular) Purpose - Visualization and Identification of Vasculature: Yes Needle Guage: Double lumen CVP Image Stored and Saved: Yes Narrative: Central line placement per sterile protocol utilized. Under strict sterile technique including gown, CVP double lumen place using j wire on first needle pass. Secured at 15cm. Blood easily aspirated from both lumens and then flushed. Patient tolerated the procedure well
--- NOTE | 2021-01-22 12:18 | XR ---
EXAM TYPE: LUMBAR SPINE X RAY SERIES COMPARISON: NONE HISTORY: Pain TECHNIQUE: 20 views are submitted. FINDINGS: Limited resolution intraoperative images demonstrate surgical and postsurgical changes. IMPRESSION: 1. Surgical findings
--- NOTE | 2021-01-22 12:20 | FL ---
EXAMINATION TYPE: FL guidance operating room DATE OF EXAM: 01/22/2021 HISTORY: Fluoroscopy time 2 minutes and 52 seconds of fluoroscopy provided. IMPRESSION: 1. Fluoroscopy time.
[2021-01-22] MEDS ORDERED: VANCOMYCIN 1,000 MG VIAL MISCELLANE ONE (18:19)
[2021-01-22] MEDS ORDERED: ONDANSETRON 4 MG/2 ML VIAL IVP PRN (19:50)
[2021-01-22] MEDS ORDERED: SENNOSIDES-DOCUSATE SODIUM 1 EACH TAB PO PRN (19:50)
[2021-01-22] MEDS ORDERED: NALOXONE 0.4 MG/ML 1 ML VIAL IV PRN (19:54)
[2021-01-22 19:57] LABS: Glucose,Whole Blood 129 mg/dL (75-99)
[2021-01-22] MEDS ORDERED: propofoL 100 ML IV ONE (20:00)
--- NOTE | 2021-01-22 20:01 | P.PN ---
Progress Note - Text Progress Note Date: 01/22/21 Brief Post op Note: Pre op dx: Lumbar degen scoliosis Post op dx:Same Procedure: Stage I: L2-5 lateral IB fusion, Stages II: T10-P fusion with L5-S1 TLIF Surgeon:Crystal Assist: José Miguel for first half, Shiv for second half Anesthesia: GETA EBL: 800 mL Cell saver: 132 mL given back Implants: Dawna cascadia lateral, Globus sable cage, dawna screws Fluids:5000 mL; albumin UO: 1200 mL Complications: None Dispo: Stable to ICU
[2021-01-22 20:35] LABS: ABG Base Excess -0.3 mmol/L; ABG HCO3 26 mmol/L (21-25); ABG Oxygen Saturation 99.7 % (94-97); ABG PCO2 49 mmHg (35-45); ABG PH 7.33 (7.35-7.45); ABG PO2 265 mmHg (83-108); ABG TCO2 27 mmol/L (19-24); Allen Test Performed? Yes
[2021-01-22] MEDS: ACETAMINOPHEN TAB 500 MG TAB PO SCH (22:34)
[2021-01-22 22:39] LABS: Basophils % (A) 0 %; Eosinophils # (A) 0.1 k/uL (0-0.7); Eosinophils % (A) 0 %; HCT 35.5 % (39.0-53.0); Lymphocytes # (A) 1.2 k/uL (1.0-4.8); Lymphocytes % (A) 7 %; MCH 33.4 pg (25.0-35.0); MCHC 32.8 g/dL (31.0-37.0); MCV 101.7 fL (80.0-100.0); Mean Platelet Volume 7.7; Monocytes % (A) 6 %; Neutrophils # (A) 14.3 k/uL (1.3-7.7); Neutrophils % (A) 85 %; Platelet Count 240 k/uL (150-450); RBC 3.49 m/uL (4.30-5.90); RDW 12.4 % (11.5-15.5); WBC 16.7 k/uL (3.8-10.6)
[2021-01-22] MEDS: 0.9% NACL WITH KCL 20 MEQ/L 1,000 ML IV SCH (22:41)
[2021-01-22 22:49] LABS: African American GFR (CKD) >90 (>60 ml/min/1.73 sqM); Anion Gap 5 mmol/L; Blood Urea Nitrogen 10 mg/dL (9-20); Calcium 7.9 mg/dL (8.4-10.2); Carbon Dioxide 23 mmol/L (22-30); Chloride 105 mmol/L (98-107); Glucose 144 mg/dL (74-99); HGB 11.6 gm/dL (13.0-17.5); Non-African American GFR(CKD) >90 (>60 ml/min/1.73 sqM); Potassium 3.8 mmol/L (3.5-5.1); Sodium 133 mmol/L (137-145)
[2021-01-22] MEDS: HYDROmorphone 1 MG/ML 1 ML SYRINGE IVP PRN (22:56)
[2021-01-23] MEDS: HYDROmorphone 1 MG/ML 1 ML SYRINGE IVP PRN ×3 (02:14→08:47)
[2021-01-23] MEDS: ACETAMINOPHEN TAB 500 MG TAB PO SCH ×4 (02:16→20:03)
[2021-01-23 04:10] LABS: Basophils % (A) 0 %; Eosinophils # (A) 0.1 k/uL (0-0.7); Eosinophils % (A) 1 %; HCT 35.2 % (39.0-53.0); HGB 11.5 gm/dL (13.0-17.5); Lymphocytes # (A) 1.2 k/uL (1.0-4.8); Lymphocytes % (A) 8 %; MCH 33.3 pg (25.0-35.0); MCHC 32.8 g/dL (31.0-37.0); MCV 101.5 fL (80.0-100.0); Mean Platelet Volume 7.9; Monocytes # (A) 1.1 k/uL (0-1.0); Monocytes % (A) 7 %; Neutrophils # (A) 13.3 k/uL (1.3-7.7); Neutrophils % (A) 84 %; Platelet Count 251 k/uL (150-450); RBC 3.46 m/uL (4.30-5.90); RDW 12.4 % (11.5-15.5); WBC 15.8 k/uL (3.8-10.6)
[2021-01-23 04:35] LABS: African American GFR (CKD) >90 (>60 ml/min/1.73 sqM); Anion Gap 4 mmol/L; Blood Urea Nitrogen 9 mg/dL (9-20); Carbon Dioxide 23 mmol/L (22-30); Chloride 107 mmol/L (98-107); Glucose 119 mg/dL (74-99); Non-African American GFR(CKD) >90 (>60 ml/min/1.73 sqM); Potassium 4.4 mmol/L (3.5-5.1); Sodium 134 mmol/L (137-145)
[2021-01-23 05:24] LABS: ABG Base Excess 0.5 mmol/L; ABG HCO3 26 mmol/L (21-25); ABG Oxygen Saturation 98.3 % (94-97); ABG PCO2 45 mmHg (35-45); ABG PH 7.37 (7.35-7.45); ABG PO2 105 mmHg (83-108); ABG TCO2 27 mmol/L (19-24); Allen Test Performed? Yes
--- NOTE | 2021-01-23 07:56 | P.PN ---
Subjective Progress Note Date: 01/23/21 Patient seen and examined this morning he is still ventilated and sedated but did well overnight. No acute events. Nursing states that he did follow commands loosely when he was woken up and he was put into restraints due to trying to pull at his tube. In the room today he does turn his head and try to open his eyes to his name but he still fairly sedated he does move his arms and is wiggling his toes. Objective - Vital Signs Vital signs: Vital Signs Temp 97.7 F 01/23/21 04:00 Pulse 95 01/23/21 07:00 Resp 14 01/23/21 07:00 BP 128/86 01/23/21 00:00 Pulse Ox 99 01/23/21 07:00 Intake & Output 01/22/21 01/23/21 01/23/21 18:59 06:59 18:59 Intake Total 5650 1628.170 120 Output Total 3295 100 Balance 5650 -1666.830 20 Intake: IV 5650 1480 120 0.9% NaCl with KCl 20 Meq 900 100 /l 1,000 ml @ 100 mls/hr IV .Q10H MELISSA Rx#: [id number] Lactated Ringers 1,000 ml 180 20 @ 20 mls/hr IV .Q24H MELISSA Rx#:[id number] ceFAZolin 2 gm In Sodium 200 Chloride 0.9% 50 ml @ 100 mls/hr IVPB Q8H MELISSA Rx#: [id number] Intake, IV Titration 148.170 Amount propofoL 1,000 mg In 148.170 Empty Bag 1 bag @ Titrate IV .Q0M MELISSA Rx#: [id number] Output: Drainage 230 Lower Back 80 Upper Back 150 Urine 2365 100 Estimated Blood Loss 700 Other: Voiding Method Indwelling Catheter ABP, PAP, CO, CI - Last Documented Arterial Blood Pressure 148/71 - Exam Limited exam secondary to ventilation and sedation. Patient is moving all 4 extremities at this time he turns his head to his name and auditory stimuli. Vital signs are stable currently cuff pressures and Artline pressures are correlating. No other acute issues. Drains are visualized there is a total of 200 from the drains combined with deep - EENT Eyes: Present: PERRLA - Labs CBC & Chem 7: 01/23/21 04:00 01/23/21 04:00 Labs: Abnormal Lab Results - Last 24 Hours (Table) 01/22/21 01/22/21 01/22/21 Range/Units 19:56 20:31 22:36 WBC 16.7 H (3.8-10.6) k/uL RBC 3.49 L (4.30-5.90) m/uL Hgb 11.6 L D (13.0-17.5) gm/dL Hct 35.5 L (39.0-53.0) % MCV 101.7 H (80.0-100.0) fL Neutrophils # 14.3 H (1.3-7.7) k/uL Monocytes # (0-1.0) k/uL ABG pH 7.33 L (7.35-7.45) ABG pCO2 49 H (35-45) mmHg ABG pO2 265 H (83-108) mmHg ABG HCO3 26 H (21-25) mmol/L ABG Total CO2 27 H (19-24) mmol/L ABG O2 Saturation 99.7 H (94-97) % Sodium (137-145) mmol/L Glucose (74-99) mg/dL POC Glucose (mg/dL) 129 H (75-99) mg/dL Calcium (8.4-10.2) mg/dL 01/22/21 01/23/21 01/23/21 Range/Units 22:36 04:00 04:00 WBC 15.8 H (3.8-10.6) k/uL RBC 3.46 L (4.30-5.90) m/uL Hgb 11.5 L (13.0-17.5) gm/dL Hct 35.2 L (39.0-53.0) % MCV 101.5 H (80.0-100.0) fL Neutrophils # 13.3 H (1.3-7.7) k/uL Monocytes # 1.1 H (0-1.0) k/uL ABG pH (7.35-7.45) ABG pCO2 (35-45) mmHg ABG pO2 (83-108) mmHg ABG HCO3 (21-25) mmol/L ABG Total CO2 (19-24) mmol/L ABG O2 Saturation (94-97) % Sodium 133 L 134 L (137-145) mmol/L Glucose 144 H 119 H (74-99) mg/dL POC Glucose (mg/dL) (75-99) mg/dL Calcium 7.9 L 8.0 L (8.4-10.2) mg/dL 01/23/21 Range/Units 05:19 WBC (3.8-10.6) k/uL RBC (4.30-5.90) m/uL Hgb (13.0-17.5) gm/dL Hct (39.0-53.0) % MCV (80.0-100.0) fL Neutrophils # (1.3-7.7) k/uL Monocytes # (0-1.0) k/uL ABG pH (7.35-7.45) ABG pCO2 (35-45) mmHg ABG pO2 (83-108) mmHg ABG HCO3 26 H (21-25) mmol/L ABG Total CO2 27 H (19-24) mmol/L ABG O2 Saturation 98.3 H (94-97) % Sodium (137-145) mmol/L Glucose (74-99) mg/dL POC Glucose (mg/dL) (75-99) mg/dL Calcium (8.4-10.2) mg/dL Microbiology - Last 24 Hours (Table) 01/22/21 20:26 Sputum Culture - Preliminary Sputum Assessment and Plan Assessment: 60-year-old male postoperative day 1 two-stage procedure lateral interbody fu daily L2 to L5 with second stage T10 to pelvis decompression fusion with L5-S1 interbody fusion 1. L5-S1 grade 1-2 spondylolisthesis and L5-S1 spondylolysis 2. L1 to S1 spondylosis with stenosis 3. Right lower extremity radiculopathy with weakness 4. Lumbar degenerative scoliosis with PI/LL mismatch and deformity 5. Neurogenic claudication Plan: -Appreciate foreign law consultant and team management. -Appreciate ICU management -Activity: Ambulate QID, OOB all meals, up and about, limit lifting bending twisting to less than 5 lbs. Use walker or cane if needed for stability. -Daily PT/OT, increase ambulation strength and balance. -We will assess the need for a brace when patient gets up -Pain control: Titrated to vitals, patient has WAREHOUSE RECEIVER available -Meds: reviewed -GI ppx: senna, Miralax -DC zavala when up and about, bedside commode if needed -DVT PPX: OK to restart Heparin tonight -Hygiene: Shower today. Maintain dressing clean and dry. Meticulous cleaning after BMs away from incision site -Drains: Maintain for now. Record output -Encourage IS 10x/hr -Noncontrasted CT of the thoracolumbar spine is pending currently -Dispo: Pending
--- NOTE | 2021-01-23 08:49 | XR ---
EXAMINATION TYPE: XR lumbar spine 2 or 3V, FL guidance operating room DATE OF EXAM: 01/22/2021 COMPARISON: NONE HISTORY: Spinal fusion Fluoroscopy support supplied to the referring clinician. See dictated report from orthopedic surgery , 4 intraoperative C-arm images document the procedure, 1 minute 29 seconds fluoroscopy time
[2021-01-23] MEDS: HYDROmorphone PCA 10 MG/50 ML BAG IV PRN ×2 (09:07→19:42)
[2021-01-23] MEDS ORDERED: ACETAMINOPHEN IV (For NPO) 1,000 MG in EMPTY BAG 1 BAG IVPB STA (09:20)
--- NOTE | 2021-01-23 09:24 | XR ---
EXAMINATION TYPE: XR chest 1V portable DATE OF EXAM: 01/23/2021 COMPARISON: CT chest 04/11/2020 HISTORY: Acute hypoxia, respiratory failure TECHNIQUE: Single frontal view of the chest is obtained. FINDINGS: Right jugular central venous catheter is present overlying the superior vena cava. There i s no evident pneumothorax or pleural effusion. There are overlying leads. Aorta is dense. Interstitiu m is increased. Postop changes are noted to the lower visualized spine. Biapical pleural thickening n oted. Heart size is borderline increased. Bebeto are present in the midline. IMPRESSION: Borderline heart size appearance may be accentuated by technique, prominence interstitiu m may represent interstitial lung disease. There is underlying emphysema.
--- NOTE | 2021-01-23 09:59 | P.CNPUL ---
History of Present Illness Consult date: 01/23/21 Requesting physician: Cody Rojas Reason for consult: hypoxemia, other Chief complaint: routine postoperative ventilator management History of present illness: 60-year-old white male, with past medical history of hypertension, hypercholesterolemia, COPD, chronic and ongoing nicotine dependence, osteoarthritis, chronic low back pain, lumbar spine spondylosis with right lower extremity radiculopathy and weakness and neurogenic claudication. Patient underwent L2-5 lateral interbody fusion with second stage T10 to pelvis decompression fusion with L5-S1 interbody fusion on 01/22/2021. Following his surgery patient remained intubated and sedated on mechanical ventilator overnight. Today on 01/23/2021 he seen in the intensive care unit, sedated and intubated on assist control mode of ventilation with a rate of 16, tidal line was 500, FiO2 of 35% and PEEP of 5. This morning's blood gas shows pO2 of 105, pCO2 of 45, and pH of 7.37 and this was done on FiO2 of 35%, chest x-ray shows prominence of the interstitium, possibility of underlying emphysema. Patient is currently on 0.9 normal saline at a rate of 100 ML per hour, Diprivan is a 40 mics per kilo per minute, hemodynamically patient is stable, not on any vasopressor support, slightly hypertensive this morning, as his becoming more awake. He is following simple commands, he is able to open eyes to voice. This morning his blood work reveals white blood cell, 15.8, hemoglobin of 11.5, sodium is 134, the rest of her electrolytes were within normal limits, BUN was 9 creatinine 0.72. he is in sinus mechanism. patient has 2 GALO drains in his lateral thoracic spine, with small amount of sanguinous output. No acute events overnight, anticipate proceeding with Review of Systems All systems: negative Constitutional: Denies chills, Denies fever Eyes: denies blurred vision, denies pain Ears, nose, mouth and throat: Denies headache, Denies sore throat Cardiovascular: Denies chest pain, Denies shortness of breath Respiratory: Denies cough Gastrointestinal: Denies abdominal pain, Denies diarrhea, Denies nausea, Denies vomiting Musculoskeletal: Reports low back pain, Denies myalgias Integumentary: Denies pruritus, Denies rash Neurological: Denies numbness, Denies weakness Psychiatric: Denies anxiety, Denies depression Endocrine: Denies fatigue, Denies weight change Past Medical History Past Medical History: COPD, Hyperlipidemia, Hypertension, Osteoarthritis (OA) Additional Past Medical History / Comment(s): tinnitis left ear, LOWER BACK PAIN,. hx colon polyps History of Any Multi-Drug Resistant Organisms: None Reported Past Surgical History: Hernia Repair, Joint Replacement, Orthopedic Surgery Additional Past Surgical History / Comment(s): -left knee arthroscopy, left knee surgery- on knee cap, exploratory surgery on back after injury with bhaskar nail, cyst removed from face x2, CYST REMOVED ON RIGHT EYELID , LEFT TOTAL KNEE Past Anesthesia/Blood Transfusion Reactions: Previous Problems w/ Anesthesia Additional Past Anesthesia/Blood Transfusion Reaction / Comment(s): blood pressure went up for hernia surgery Smoking Status: Smoker, current status unknown - Past Family History Mother Family Medical History: Cancer Additional Family Medical History / Comment(s): colon cancer age 52 Brother(s) Family Medical History: Unable to Obtain Additional Family Medical History / Comment(s): brain cancer Medications and Allergies Home Medications Medication Instructions Recorded Confirmed Type Meloxicam [Mobic] 7.5 mg PO DAILY 11/02/20 01/22/21 History Allergies Allergy/AdvReac Type Severity Reaction Status Date / Time meperidine [From Demerol] Allergy Vomiting Verified 01/22/21 05:58 Physical Exam Vitals: Vital Signs Temp Pulse Resp BP Pulse Ox 01/23/21 07:00 95 14 99 01/23/21 06:00 80 17 98 01/23/21 05:00 88 14 99 01/23/21 04:00 97.7 F 84 15 100 01/23/21 03:00 92 15 97 01/23/21 02:00 99.0 F 101 H 19 97 01/23/21 01:00 98 15 97 01/23/21 00:00 97.4 F L 71 14 128/86 97 01/22/21 23:00 66 19 156/97 99 01/22/21 22:00 57 L 12 99 01/22/21 21:00 68 19 99 01/22/21 20:00 57 L 13 122/86 100 Intake and Output 01/22/21 01/23/21 01/23/21 22:59 06:59 14:59 Intake Total 6520.014 7468.417 120 Output Total 1955 1340 100 Balance -626.247 -140.583 20 Intake: IV 1320 1060 120 0.9% NaCl with KCl 20 Meq 100 800 100 /l 1,000 ml @ 100 mls/hr IV .Q10H MELISSA Rx#: [id number] Lactated Ringers 1,000 ml 20 160 20 @ 20 mls/hr IV .Q24H MELISSA Rx#:[id number] ceFAZolin 2 gm In Sodium 100 100 Chloride 0.9% 50 ml @ 100 mls/hr IVPB Q8H MELISSA Rx#: [id number] Intake, IV Titration 8.753 139.417 Amount propofoL 1,000 mg In 8.753 139.417 Empty Bag 1 bag @ Titrate IV .Q0M MELISSA Rx#: [id number] Output: Drainage 230 Lower Back 80 Upper Back 150 Urine 1255 1110 100 Estimated Blood Loss 700 Other: Voiding Method Indwelling Catheter Indwelling Catheter ABP, PAP, CO, CI - Last 8 Hours Arterial Blood Pressure 148/71 Arterial Blood Pressure 151/64 Arterial Blood Pressure 164/68 Arterial Blood Pressure 138/67 Arterial Blood Pressure 128/56 Arterial Blood Pressure 140/62 GENERAL EXAM: 60-year-old white male, intubated, sedated, on assist-control mode of ventilation with FiO2 of 35% and PEEP of 5 comfortable in no apparent distress. HEAD: Normocephalic/atraumatic. EYES: Normal reaction of pupils, equal size. Conjunctiva pink, sclera white. NOSE: Clear with pink turbinates. THROAT: No erythema or exudates. NECK: No masses, no JVD, no thyroid enlargement, no adenopathy. CHEST: No chest wall deformity. Symmetrical expansion. LUNGS: Equal air entry with no crackles, wheeze, rhonchi or dullness. CVS: Regular rate and rhythm, normal S1 and S2, no gallops, no murmurs, no rubs ABDOMEN: Soft, nontender. No hepatosplenomegaly, normal bowel sounds, no guarding or rigidity. EXTREMITIES: No clubbing, no edema, no cyanosis, 2+ pulses and upper and lower extremities. MUSCULOSKELETAL: Muscle strength and tone normal. SPINE: No scoliosis or deformity. back incision was not inspected, 2 GALO drains in the lateral spine, with small amount of sanguinous output SKIN: No rashes CENTRAL NERVOUS SYSTEM: sedated, but follows simple command No focal deficits, tone is normal in all 4 extremities. Results - Laboratory Findings CBC and BMP: 01/23/21 04:00 01/23/21 04:00 ABG ABG pH 7.37 (7.35-7.45) 01/23/21 05:19 ABG pCO2 45 mmHg (35-45) 01/23/21 05:19 ABG pO2 105 mmHg (83-108) 01/23/21 05:19 ABG O2 Saturation 98.3 % (94-97) H 01/23/21 05:19 Abnormal lab findings: Abnormal Labs 01/22/21 01/22/21 01/22/21 19:56 20:31 22:36 WBC 16.7 H RBC 3.49 L Hgb 11.6 L D Hct 35.5 L MCV 101.7 H Neutrophils # 14.3 H Monocytes # ABG pH 7.33 L ABG pCO2 49 H ABG pO2 265 H ABG HCO3 26 H ABG Total CO2 27 H ABG O2 Saturation 99.7 H Sodium Glucose POC Glucose (mg/dL) 129 H Calcium 01/22/21 01/23/21 01/23/21 22:36 04:00 04:00 WBC 15.8 H RBC 3.46 L Hgb 11.5 L Hct 35.2 L MCV 101.5 H Neutrophils # 13.3 H Monocytes # 1.1 H ABG pH ABG pCO2 ABG pO2 ABG HCO3 ABG Total CO2 ABG O2 Saturation Sodium 133 L 134 L Glucose 144 H 119 H POC Glucose (mg/dL) Calcium 7.9 L 8.0 L 01/23/21 05:19 WBC RBC Hgb Hct MCV Neutrophils # Monocytes # ABG pH ABG pCO2 ABG pO2 ABG HCO3 26 H ABG Total CO2 27 H ABG O2 Saturation 98.3 H Sodium Glucose POC Glucose (mg/dL) Calcium - Diagnostic Findings Chest x-ray: report reviewed, image reviewed Assessment and Plan Plan: Assessment: #1. Routine postoperative ventilator management post L2 to L5 lateral interbody fusion, second stage T10 to pelvis decompression fusion with L5-S1 interbody fusion #2. Lumbar and sacral spine stenosis, spondylolisthesis and spondylolysis, status post L2 to L5 lateral interbody fusion, second stage T10 to pelvis decompression fusion with L5-S1 interbody fusion, on 01/22/2021 #3. Hypertension #4. Hypercholesterolemia #5. COPD, severity of which is unknown to us at this time #6. Chronic nicotine dependence #7. Osteoarthritis Plan: We'll proceed with spontaneous awakening trial and short pressure-support trial and proceed to extubation Hemodynamically patient is stable, Not on any vasopressors, vital signs are stable Maintain pain control Provide incentive spirometer and instructed on use Today's labs and chest x-rays have been reviewed GI and DVT prophylaxis per surgery We'll continue to follow mostly in the intensive care unit Nothing by mouth for at least 6 hours after extubation Follow-up labs and chest x-ray tomorrow I performed a history & physical examination of the patient and discussed their management with my nurse practitioner, Norma Bashir. I reviewed the nurse practitioner's note and agree with the documented findings and plan of care. Lung sounds are positive for clear breaths throughout the lung mills. The findings and the impression was discussed with the patient. I attest to the documentation by the nurse practitioner. Time with Patient: Greater than 30
[2021-01-23] MEDS: SODIUM CHLORIDE 0.9% 1,000 ML IV SCH ×2 (10:29→19:46)
--- NOTE | 2021-01-23 10:54 | P.CONS ---
History of Present Illness - Reason for Consult Consult date: 01/23/21 Medical management - History of Present Illness This is 60-year-old white male with multiple medical problems, who was admitted to the hospital, he underwent L2-5 lateral interbody fusion with second stage T10 to pelvis decompression fusion with L5-S1 interbody fusion on 01/22/2021. Following his surgery patient remained intubated and sedated on mechanical ventilator. At the time of examination patient is intubated on mechanical ventilation. Review of Systems Unable to obtain secondary to Past Medical History Past Medical History: COPD, Hyperlipidemia, Hypertension, Osteoarthritis (OA) Additional Past Medical History / Comment(s): tinnitis left ear, LOWER BACK PAIN,. hx colon polyps History of Any Multi-Drug Resistant Organisms: None Reported Past Surgical History: Hernia Repair, Joint Replacement, Orthopedic Surgery Additional Past Surgical History / Comment(s): -left knee arthroscopy, left knee surgery- on knee cap, exploratory surgery on back after injury with bhaskar nail, cyst removed from face x2, CYST REMOVED ON RIGHT EYELID , LEFT TOTAL KNEE Past Anesthesia/Blood Transfusion Reactions: Previous Problems w/ Anesthesia Additional Past Anesthesia/Blood Transfusion Reaction / Comm: blood pressure went up for hernia surgery Smoking Status: Smoker, current status unknown - Past Family History Mother Family Medical History: Cancer Additional Family Medical History / Comment(s): colon cancer age 52 Brother(s) Family Medical History: Unable to Obtain Additional Family Medical History / Comment(s): brain cancer Medications and Allergies Home Medications Medication Instructions Recorded Confirmed Type Meloxicam [Mobic] 7.5 mg PO DAILY 11/02/20 01/22/21 History Allergies Allergy/AdvReac Type Severity Reaction Status Date / Time meperidine [From Demerol] Allergy Vomiting Verified 01/22/21 05:58 Physical Exam Vitals: Vital Signs Temp Pulse Resp BP Pulse Ox 01/23/21 07:00 95 14 99 01/23/21 06:00 80 17 98 01/23/21 05:00 88 14 99 01/23/21 04:00 97.7 F 84 15 100 01/23/21 03:00 92 15 97 01/23/21 02:00 99.0 F 101 H 19 97 01/23/21 01:00 98 15 97 01/23/21 00:00 97.4 F L 71 14 128/86 97 01/22/21 23:00 66 19 156/97 99 01/22/21 22:00 57 L 12 99 01/22/21 21:00 68 19 99 01/22/21 20:00 57 L 13 122/86 100 Intake and Output 01/22/21 01/23/21 01/23/21 22:59 06:59 14:59 Intake Total 3044.763 5062.417 120 Output Total 1955 1340 100 Balance -626.247 -140.583 20 Intake: IV 1320 1060 120 0.9% NaCl with KCl 20 Meq 100 800 100 /l 1,000 ml @ 100 mls/hr IV .Q10H MELISSA Rx#: [id number] Lactated Ringers 1,000 ml 20 160 20 @ 20 mls/hr IV .Q24H MELISSA Rx#:[id number] ceFAZolin 2 gm In Sodium 100 100 Chloride 0.9% 50 ml @ 100 mls/hr IVPB Q8H MELISSA Rx#: [id number] Intake, IV Titration 8.753 139.417 Amount propofoL 1,000 mg In 8.753 139.417 Empty Bag 1 bag @ Titrate IV .Q0M MELISSA Rx#: [id number] Output: Drainage 230 Lower Back 80 Upper Back 150 Urine 1255 1110 100 Estimated Blood Loss 700 Other: Voiding Method Indwelling Catheter Indwelling Catheter ABP, PAP, CO, CI - Last 8 Hours Arterial Blood Pressure 148/71 Arterial Blood Pressure 151/64 Arterial Blood Pressure 164/68 Arterial Blood Pressure 138/67 Arterial Blood Pressure 128/56 GENERAL EXAM: intubated on vent HEAD: Normocephalic/atraumatic. EYES: Normal reaction of pupils, equal size. NOSE: Clear with pink turbinates. CHEST: No chest wall deformity. Symmetrical expansion. LUNGS: Equal air entry with no crackles, wheeze, rhonchi or dullness. CVS: Regular rate and rhythm, normal S1 and S2, no gallops, no murmurs, no rubs ABDOMEN: Soft, nontender. No hepatosplenomegaly, normal bowel sounds, no guarding or rigidity. EXTREMITIES: No clubbing, no edema, no cyanosis, 2+ pulses and upper and lower extremities. MUSCULOSKELETAL: Muscle strength and tone normal. CENTRAL NERVOUS SYSTEM: sedated Results CBC & Chem 7: 01/23/21 04:00 01/23/21 04:00 Labs: Abnormal Lab Results - Last 24 Hours (Table) 01/22/21 01/22/21 01/22/21 Range/Units 19:56 20:31 22:36 WBC 16.7 H (3.8-10.6) k/uL RBC 3.49 L (4.30-5.90) m/uL Hgb 11.6 L D (13.0-17.5) gm/dL Hct 35.5 L (39.0-53.0) % MCV 101.7 H (80.0-100.0) fL Neutrophils # 14.3 H (1.3-7.7) k/uL Monocytes # (0-1.0) k/uL ABG pH 7.33 L (7.35-7.45) ABG pCO2 49 H (35-45) mmHg ABG pO2 265 H (83-108) mmHg ABG HCO3 26 H (21-25) mmol/L ABG Total CO2 27 H (19-24) mmol/L ABG O2 Saturation 99.7 H (94-97) % Sodium (137-145) mmol/L Glucose (74-99) mg/dL POC Glucose (mg/dL) 129 H (75-99) mg/dL Calcium (8.4-10.2) mg/dL 01/22/21 01/23/21 01/23/21 Range/Units 22:36 04:00 04:00 WBC 15.8 H (3.8-10.6) k/uL RBC 3.46 L (4.30-5.90) m/uL Hgb 11.5 L (13.0-17.5) gm/dL Hct 35.2 L (39.0-53.0) % MCV 101.5 H (80.0-100.0) fL Neutrophils # 13.3 H (1.3-7.7) k/uL Monocytes # 1.1 H (0-1.0) k/uL ABG pH (7.35-7.45) ABG pCO2 (35-45) mmHg ABG pO2 (83-108) mmHg ABG HCO3 (21-25) mmol/L ABG Total CO2 (19-24) mmol/L ABG O2 Saturation (94-97) % Sodium 133 L 134 L (137-145) mmol/L Glucose 144 H 119 H (74-99) mg/dL POC Glucose (mg/dL) (75-99) mg/dL Calcium 7.9 L 8.0 L (8.4-10.2) mg/dL 01/23/21 Range/Units 05:19 WBC (3.8-10.6) k/uL RBC (4.30-5.90) m/uL Hgb (13.0-17.5) gm/dL Hct (39.0-53.0) % MCV (80.0-100.0) fL Neutrophils # (1.3-7.7) k/uL Monocytes # (0-1.0) k/uL ABG pH (7.35-7.45) ABG pCO2 (35-45) mmHg ABG pO2 (83-108) mmHg ABG HCO3 26 H (21-25) mmol/L ABG Total CO2 27 H (19-24) mmol/L ABG O2 Saturation 98.3 H (94-97) % Sodium (137-145) mmol/L Glucose (74-99) mg/dL POC Glucose (mg/dL) (75-99) mg/dL Calcium (8.4-10.2) mg/dL Microbiology - Last 24 Hours (Table) 01/22/21 20:26 Gram Stain - Preliminary Sputum Sputum Culture - Preliminary Assessment and Plan Assessment: #1. postoperative ventilator management post L2 to L5 lateral interbody fusion, second stage T10 to pelvis decompression fusion with L5-S1 interbody fusion: continue supportive care #2. Lumbar and sacral spine stenosis, spondylolisthesis and spondylolysis, status post L2 to L5 lateral interbody fusion, second stage T10 to pelvis decompression fusion with L5-S1 interbody fusion, on 01/22/2021: ortho following #3. Essential Hypertension: not on meds #4. Hypercholesterolemia #5. COPD : on vent , ICU following #6. Chronic nicotine dependence without withdrawal: supportive care #7. Osteoarthritis Thank you for your consultation
[2021-01-23] MEDS: IPRATROPIUM-ALBUTEROL 3 ML NEB INHALATION SCH ×2 (11:28→21:46)
[2021-01-23] MEDS: 0.9% NACL WITH KCL 20 MEQ/L 1,000 ML IV SCH (11:33)
[2021-01-23 12:07] LABS: Glucose,Whole Blood 108 mg/dL (75-99)
[2021-01-23] MEDS: PANTOPRAZOLE 40 MG/10 ML VIAL IVP SCH (14:29)
--- NOTE | 2021-01-23 15:38 | CT ---
EXAMINATION TYPE: CT lumbar spine wo con DATE OF EXAM: 01/23/2021 3:12 PM COMPARISON: 07/13/2020 HISTORY: Post op thoraco lumbar fusion. CT DLP: 1459.6 mGycm Automated exposure control for dose reduction was used. Unenhanced CT of the lumbar spine was performed. Bone and soft tissue window settings are submitted as well as coronal and sagittal reconstructions. There is extensive postsurgical changes in throughout the entire visualized lumbosacral spine. Result s in severe artifact and nondiagnostic assessment spinal canal virtually all levels. Extensive subcut aneous emphysema is noted posteriorly with air extending toward the spinal canal posteriorly. There i s a sizable amount of air within the retroperitoneum along both psoas muscles. There is a small amoun t of fluid adjacent to the psoas muscles extending into the pelvis. One of the transpedicular screws extend outside the right cortex at the L5-S1 level correlate clinically Vascular calcifications are noted. There is bilateral infiltrate and tiny effusion. Numerous calcific ations in the pancreas is nonspecific. Nonobstructing punctate left renal calculus measuring 1 to 2 m m. Ectasia of the aorta with atherosclerotic changes in maximal dimension of 2.8 cm. IMPRESSION: 1. Essentially nondiagnostic exam in evaluation of the spinal canal due to severe metallic artifact o bscuring the spinal canal. There is a small bilateral effusions and bibasilar infiltrate with extensi ve subcutaneous emphysema involving the posterior soft tissues extending into the musculature and halle ng the posterior margin posterior elements of the vertebral column which could be postsurgical. 2. Air extends into the retroperitoneum along the psoas muscles and there is a small amount of fluid seen along both psoas muscles extending into the pelvis. This could be postoperative or represent hem atoma. Developing abscess not excluded. Correlate clinically given the limitation of the exam. Report called to the patient's ICU nurse 3:30 PM 01/23/2021.
[2021-01-23] MEDS: HEPARIN SODIUM,PORCINE/PF 5,000 UNIT/0.5 ML SYRINGE SQ SCH (20:05)
[2021-01-24] MEDS: ACETAMINOPHEN TAB 500 MG TAB PO SCH ×4 (02:28→19:37)
[2021-01-24] MEDS: HYDROmorphone PCA 10 MG/50 ML BAG IV PRN (04:33)
[2021-01-24] MEDS: SODIUM CHLORIDE 0.9% 1,000 ML IV SCH ×2 (04:33→08:37)
[2021-01-24 04:41] LABS: Basophils % (A) 0 %; Eosinophils # (A) 0.1 k/uL (0-0.7); Eosinophils % (A) 1 %; HCT 28.8 % (39.0-53.0); Lymphocytes # (A) 1.5 k/uL (1.0-4.8); Lymphocytes % (A) 11 %; MCHC 31.8 g/dL (31.0-37.0); MCV 103.7 fL (80.0-100.0); Macrocytosis Slight; Mean Platelet Volume 8.3; Monocytes # (A) 1.2 k/uL (0-1.0); Monocytes % (A) 9 %; Neutrophils # (A) 10.1 k/uL (1.3-7.7); Neutrophils % (A) 77 %; Platelet Count 195 k/uL (150-450); RBC 2.78 m/uL (4.30-5.90); RDW 12.4 % (11.5-15.5); WBC 13.1 k/uL (3.8-10.6)
[2021-01-24 04:56] LABS: HGB 9.2 gm/dL (13.0-17.5)
[2021-01-24 05:04] LABS: ALT 24 U/L (4-49); AST 71 U/L (17-59); African American GFR (CKD) >90 (>60 ml/min/1.73 sqM); Albumin 2.4 g/dL (3.5-5.0); Alkaline Phosphatase 77 U/L (38-126); Anion Gap 4 mmol/L; Blood Urea Nitrogen 7 mg/dL (9-20); Calcium 7.8 mg/dL (8.4-10.2); Carbon Dioxide 24 mmol/L (22-30); Chloride 107 mmol/L (98-107); Glucose 92 mg/dL (74-99); Non-African American GFR(CKD) >90 (>60 ml/min/1.73 sqM); Sodium 135 mmol/L (137-145); Total Bilirubin 0.5 mg/dL (0.2-1.3); Total Protein 4.4 g/dL (6.3-8.2)
[2021-01-24] MEDS: IPRATROPIUM-ALBUTEROL 3 ML NEB INHALATION SCH ×3 (06:15→21:11)
[2021-01-24] MEDS: PANTOPRAZOLE 40 MG/10 ML VIAL IVP SCH (08:34)
[2021-01-24] MEDS: CYCLOBENZAPRINE 10 MG TAB PO PRN ×2 (08:34→19:38)
[2021-01-24] MEDS: HEPARIN SODIUM,PORCINE/PF 5,000 UNIT/0.5 ML SYRINGE SQ SCH ×2 (08:36→19:37)
--- NOTE | 2021-01-24 10:25 | XR ---
EXAMINATION TYPE: XR chest 1V portable DATE OF EXAM: 01/24/2021 COMPARISON: Chest x-ray 01/23/2021 HISTORY: Acute hypoxia, respiratory failure TECHNIQUE: Single frontal view of the chest is obtained. FINDINGS: Right jugular central venous catheter is in place. Postoperative changes are again noted t o the rostral lumbar spine. There is no evident pneumothorax or pleural effusion. Cardiac mediastinal silhouette is within normal limits. There are overlying leads. Aorta is dense. Bones are unchanged. IMPRESSION: No acute cardiopulmonary disease is evident.
--- NOTE | 2021-01-24 10:47 | P.PN ---
Subjective Progress Note Date: 01/24/21 60-year-old white male, with past medical history of hypertension, hypercholesterolemia, COPD, chronic and ongoing nicotine dependence, osteoarthritis, chronic low back pain, lumbar spine spondylosis with right lower extremity radiculopathy and weakness and neurogenic claudication. Patient underwent L2-5 lateral interbody fusion with second stage T10 to pelvis decompression fusion with L5-S1 interbody fusion on 01/22/2021. Following his surgery patient remained intubated and sedated on mechanical ventilator overnight. Today on 01/23/2021 he seen in the intensive care unit, sedated and intubated on assist control mode of ventilation with a rate of 16, tidal line was 500, FiO2 of 35% and PEEP of 5. This morning's blood gas shows pO2 of 105, pCO2 of 45, and pH of 7.37 and this was done on FiO2 of 35%, chest x-ray shows prominence of the interstitium, possibility of underlying emphysema. Patient is currently on 0.9 normal saline at a rate of 100 ML per hour, Diprivan is a 40 mics per kilo per minute, hemodynamically patient is stable, not on any vasopressor support, slightly hypertensive this morning, as his becoming more awake. He is following simple commands, he is able to open eyes to voice. This morning his blood work reveals white blood cell, 15.8, hemoglobin of 11.5, sodium is 134, the rest of her electrolytes were within normal limits, BUN was 9 creatinine 0.72. he is in sinus mechanism. patient has 2 GALO drains in his lateral thoracic spine, with small amount of sanguinous output. No acute events overnight, anticipate proceeding with extubation On 01/24/2021 patient seen in follow-up in intensive care unit, today is postoperative day #1, status post L2 to L5 lateral interbody fusion, T10 to Pelvis decompression fusion with L5-S1 interbody fusion. Patient was succ essfully weaned and extubated from mechanical ventilator yesterday. Tolerating extubation quite well so far, he is on liters of oxygen pulse ox is 97%, yesterday's chest x-ray showed possible prominence of interstitium, underlying emphysema. CHEST x-ray today shows no acute cardiopulmonary disease. Patient is breathing comfortable, he has been working on incentive spirometer, his incentive spirometer effort is 2 L today, lung sounds are diminished, no wheezing or coughing, signs have been stable, no fever or chills, he has 0.9 infusing at a rate of 100 ML per hour, no other infusions, patient does have epidural in place, he was started on oral medications today per surgery, and epidural is currently being weaned down. Today's labs have been reviewed, white blood cell count is 13.1, hemoglobin is 9.2, sodium is 135, potassium is 4.0, chloride is 107, BUN is 7, creatinine 0.65. Patient is tolerating oral intake, had a CT of the lumbar spine which showed severe metallic artifact obscuring the spinal canal and for that reason the exam was nondiagnostic, it did show small bilateral pleural effusions and bibasilar infiltrates with extensive subcutaneous emphysema involving the posterior soft tissues extending into the musculature and along the posterior margin of the vertebral column that could be postsurgical. Remains in place, and patient is making adequate urine in the order of 50-75 ML per hour. Objective - Vital Signs Vital signs: Vital Signs Temp 98.4 F 01/24/21 08:00 Pulse 100 01/24/21 10:00 Resp 9 L 01/24/21 10:00 BP 124/63 01/24/21 10:00 Pulse Ox 96 01/24/21 10:00 Intake & Output 01/23/21 01/24/21 01/24/21 18:59 06:59 18:59 Intake Total 1220 1200 1120 Output Total 1080 1195 195 Balance 140 5 925 Intake: IV 1220 1200 100 0.9% NaCl with KCl 20 Meq 1200 1200 100 /l 1,000 ml @ 100 mls/hr IV .Q10H MELISSA Rx#: [id number] Lactated Ringers 1,000 ml 20 @ 20 mls/hr IV .Q24H MELISSA Rx#:[id number] Intake, IV Titration 300 Amount Sodium Chloride 0.9% 1, 300 000 ml @ 100 mls/hr IV . Q10H MELISSA Rx#:[id number] Oral 720 Output: Drainage 305 200 Lower Back 150 80 Upper Back 155 120 Urine 775 995 195 Other: Voiding Method Indwelling Catheter Indwelling Catheter ABP, PAP, CO, CI - Last Documented Arterial Blood Pressure 101/87 - Exam GENERAL EXAM: 60-year-old white male, on 2 L of oxygen and the pulse ox of 96% comfortable in no apparent distress. HEAD: Normocephalic/atraumatic. EYES: Normal reaction of pupils, equal size. Conjunctiva pink, sclera white. NOSE: Clear with pink turbinates. THROAT: No erythema or exudates. NECK: No masses, no JVD, no thyroid enlargement, no adenopathy. CHEST: No chest wall deformity. Symmetrical expansion. LUNGS: Equal air entry with no crackles, wheeze, rhonchi or dullness. CVS: Regular rate and rhythm, normal S1 and S2, no gallops, no murmurs, no rubs ABDOMEN: Soft, nontender. No hepatosplenomegaly, normal bowel sounds, no guarding or rigidity. EXTREMITIES: No clubbing, no edema, no cyanosis, 2+ pulses and upper and lower extremities. MUSCULOSKELETAL: Muscle strength and tone normal. SPINE: No scoliosis or deformity. back incision was not inspected, 2 GALO drains i n the lateral spine, with small amount of sanguinous output SKIN: No rashes CENTRAL NERVOUS SYSTEM: Awake and alert, oriented 3. No focal deficits, tone is normal in all 4 extremities. - Labs CBC & Chem 7: 01/24/21 04:00 01/24/21 04:00 Labs: Abnormal Lab Results - Last 24 Hours (Table) 01/23/21 01/24/21 01/24/21 Range/Units 12:05 04:00 04:00 WBC 13.1 H (3.8-10.6) k/uL RBC 2.78 L (4.30-5.90) m/uL Hgb 9.2 L D (13.0-17.5) gm/dL Hct 28.8 L (39.0-53.0) % MCV 103.7 H (80.0-100.0) fL Neutrophils # 10.1 H (1.3-7.7) k/uL Monocytes # 1.2 H (0-1.0) k/uL Sodium 135 L (137-145) mmol/L BUN 7 L (9-20) mg/dL Creatinine 0.65 L (0.66-1.25) mg/dL POC Glucose (mg/dL) 108 H (75-99) mg/dL Calcium 7.8 L (8.4-10.2) mg/dL AST 71 H (17-59) U/L Total Protein 4.4 L (6.3-8.2) g/dL Albumin 2.4 L (3.5-5.0) g/dL Microbiology - Last 24 Hours (Table) 01/22/21 20:26 Gram Stain - Preliminary Sputum Sputum Culture - Preliminary Assessment and Plan Plan: Assessment: #1. Routine postoperative ventilator management post L2 to L5 lateral interbody fusion, second stage T10 to pelvis decompression fusion with L5-S1 interbody fusion, and was extubated on postoperative day #1, on 01/23/2021. Tolerating Extubation quite well so far #2. Lumbar and sacral spine stenosis, spondylolisthesis and spondylolysis, status post L2 to L5 lateral interbody fusion, second stage T10 to pelvis decompression fusion with L5-S1 interbody fusion, on 01/22/2021 #3. Hypertension #4. Hypercholesterolemia #5. COPD, severity of which is unknown to us at this time, not oxygen dependent at baseline #6. Chronic nicotine dependence, in remission for last 2 months #7. Osteoarthritis Plan: Encourage deep breathing and coughing Encourage incentive spirometry use Breathing stable, is tolerating extubation quite well so far Chest x-ray reviewed showing no acute pulmonary process Labs reviewed Maintain pain control GI and DVT prophylaxis per surgery Tolerating oral intake Arriola will be discontinued Patient will be followed by physical therapy Stable for transfer to medical surgical floor without telemetry today if OK with Surgery I performed a history & physical examination of the patient and discussed their management with my nurse practitioner, Norma Bashir. I reviewed the nurse practitioner's note and agree with the documented findings and plan of care. Lung sounds are positive for clear breaths throughout the lung mills. The findings and the impression was discussed with the patient. I attest to the documentation by the nurse practitioner. Time with Patient: Less than 30
--- NOTE | 2021-01-24 11:54 | P.PN ---
Subjective Progress Note Date: 01/24/21 Pt s/e doing well. Still having discomfort but [employer] RE[employer]ER helping. He was up yesterday to chair. He has not been up today yet. He states his legs feel better and that his back is doing fairly well. Denies any other sx at this time. Objective - Vital Signs Vital signs: Vital Signs Temp 98.4 F 01/24/21 08:00 Pulse 98 01/24/21 08:00 Resp 7 L 01/24/21 08:00 BP 128/73 01/24/21 08:00 Pulse Ox 94 L 01/24/21 08:00 Intake & Output 01/23/21 01/24/21 01/24/21 18:59 06:59 18:59 Intake Total 1220 1200 560 Output Total 1080 1195 120 Balance 140 5 440 Intake: IV 1220 1200 100 0.9% NaCl with KCl 20 Meq 1200 1200 100 /l 1,000 ml @ 100 mls/hr IV .Q10H EMLISSA Rx#: [id number] Lactated Ringers 1,000 ml 20 @ 20 mls/hr IV .Q24H MELISSA Rx#:[id number] Intake, IV Titration 100 Amount Sodium Chloride 0.9% 1, 100 000 ml @ 100 mls/hr IV . Q10H MELISSA Rx#:[id number] Oral 360 Output: Drainage 305 200 Lower Back 150 80 Upper Back 155 120 Urine 775 995 120 Other: Voiding Method Indwelling Catheter Indwelling Catheter ABP, PAP, CO, CI - Last Documented Arterial Blood Pressure 153/65 - Exam Patient is alert and oriented 3 appears well-nourished well-hydrated is in no acute distress. They does not appear septic. On exam the patient has no tenderness to palpation of her thoracic or lumbar spine. There is no edema or ballottement sign. Lower extremities with 4+ out of 5 strength in all major muscle groups no focal deficits improving Upper extremities show 5/5 strength in all major muscle groups. There is FROM that is painless of the b/l UE and LE in all major joints. They are intact to light touch sensation in L2 to S1 nerve distribution. Patient has palpable dorsalis pedis was posterior tibial pulses. Compartments are soft and compressible. Patient shows a negative Homans, Hirsch's, negative Babinski's negative clonus bilaterally. negative straight leg raise bilaterally. No tensioning signs. Cranial nerves II through XII are grossly intact. Overall alignment is well-maintained in the sagittal coronal planes. Incisions are clean and dry Drain has moderate output of serosanguineous - Labs CBC & Chem 7: 01/24/21 04:00 01/24/21 04:00 Labs: Abnormal Lab Results - Last 24 Hours (Table) 01/23/21 01/24/21 01/24/21 Range/Units 12:05 04:00 04:00 WBC 13.1 H (3.8-10.6) k/uL RBC 2.78 L (4.30-5.90) m/uL Hgb 9.2 L D (13.0-17.5) gm/dL Hct 28.8 L (39.0-53.0) % MCV 103.7 H (80.0-100.0) fL Neutrophils # 10.1 H (1.3-7.7) k/uL Monocytes # 1.2 H (0-1.0) k/uL Sodium 135 L (137-145) mmol/L BUN 7 L (9-20) mg/dL Creatinine 0.65 L (0.66-1.25) mg/dL POC Glucose (mg/dL) 108 H (75-99) mg/dL Calcium 7.8 L (8.4-10.2) mg/dL AST 71 H (17-59) U/L Total Protein 4.4 L (6.3-8.2) g/dL Albumin 2.4 L (3.5-5.0) g/dL Microbiology - Last 24 Hours (Table) 01/22/21 20:26 Gram Stain - Preliminary Sputum Sputum Culture - Preliminary Assessment and Plan Assessment: 60-year-old male postoperative day 2 two-stage procedure lateral interbody fusion L2 to L5 with second stage T10 to pelvis decompression fusion with L5-S1 interbody fusion 1. L5-S1 grade 1-2 spondylolisthesis and L5-S1 spondylolysis 2. L1 to S1 spondylosis with stenosis 3. Right lower extremity radiculopathy with weakness 4. Lumbar degenerative scoliosis with PI/LL mismatch and deformity 5. Neurogenic claudication Plan: -Appreciate project consultant and team management. -Appreciate ICU management -Activity: Ambulate QID, OOB all meals, up and about, limit lifting bending twisting to less than 5 lbs. Use walker or cane if needed for stability. -Daily PT/OT, increase ambulation strength and balance. -We will assess the need for a brace when patient gets up -Pain control: Titrated to vitals, patient has RAIL [employer] REPA[employer]ER available -Meds: reviewed -GI ppx: senna, Miralax -DC zavala when up and about, bedside commode if needed -DVT PPX: OK to restart Heparin tonight -Hygiene: Shower today. Maintain dressing clean and dry. Meticulous cleaning after BMs away from incision site -Drains: Maintain for now. Record output -Encourage IS 10x/hr -Noncontrasted CT of the thoracolumbar spine shows good reduction of deformity with good placement of screws and hardware with decompression. Other postsurgical changes noted no complicating processes -Stable from orthopedic standpoint for transfer out of ICU today -Dispo: Pending
--- NOTE | 2021-01-24 13:40 | P.OP ---
Date of Procedure: 01/22/21 Preoperative Diagnosis: 1. 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 L5-S1 spondylolysis with spondylolisthesis Grade I-II 3. Lumbar Deformity 4. b/l LE radiculopathy 5. b/l LE weakness 6. Neurogenic claudication 7. Mechanical back pain Postoperative Diagnosis: 1. 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 L5-S1 spondylolysis with spondylolisthesis Grade I-II 3. Lumbar Deformity 4. b/l LE radiculopathy 5. b/l LE weakness 6. Neurogenic claudication 7. Mechanical back pain Procedure(s) Performed: Same day two part procedure: Part I: 1. L2-3 lateral interbody fusion 2. L3-4 Lateral interbody fusion 3. L4-5 lateral interbody fusion 4. Intraoperative interpretation of flouroscopic images <1 hr Part II: 1. Posterior lateral instrumented [id number] fusion 2. Segmental instrumentation [id number] 3. Pelvic fixation 4. L4-S1 bilateral decompressive laminectomy, facetectomy and foraminotomy 5. L5-S1 posterior interbody fusion 6. L5-S1 intradiscal osteotomy (3 column osteotomy for deformity correction) 7. Use of intraoperative Showell - The Simple, Fast and Elegant Tablet [employer] App 3d navigation for the placement of pedicle screws and decompression 8. Intraoperative interpretation of flouroscopic images <1 hr Implants: Dawna cascadia lateral cages [id number] deg; 8x55x8 deg; 8x60x8 deg [place] screws Globus sable cage [id number] Vesuvius Autograft Allograft Anesthesia: GETA Surgeon: Cody Rojas Furniture Installer #1: Niall Valdez (Was present for the first stage of case and second stage up until the end of screw placement and begining of decompression) Furniture Installer #2: Titus Chaney (Was present for second stage only from decompression to the end of case) Estimated Blood Loss (ml): 800 IV fluids (ml): 5,000 Urine output (ml): 1,200 Pathology: none sent Condition: stable Disposition: ICU Indications for Procedure: 60 yo male with long hx of back pain with continued complaints was found to have degenerative lumbar scoliosis, neurogenic claudication, le weakness. He went through a multitude of conservative treatments including physician directed home exercise program physical therapy multitude of different injections including R [place] interlaminar transforaminal injections traction chiropractics medications [id number] and prescription with no relief of his symptoms. His symptoms have progressed and he is difficulty with ambulation at this time secondary to his back pain and leg pain and weakness. We discussed all different options including conservative management versus surgical management at this time pat rafat elected to pursue surgical fixation. We again discussed risks and benefits of the procedure in the preoperative area and he was comfortable with these. His were ready to proceed. Description of Procedure: The patient was seen and examined in the preoperative area. All preoperative protocols were followed. Informed consent was obtained risks and benefits of t he procedure were discussed at length. Risks including bleeding infection damage to the surrounding tissue and risk of reoperation were discussed with the patient. Risk of anesthesia up to and including was a discussed with the patient. These are outlined in the risk review. They were willing to accept these risks and all of the risks of surgery. The patient was given a weight- based dose of antibiotics in the form of 2 g Ancef IVPB which was redosed every 4 hours intraoperatively. The patient was seen and evaluated by the anesthesia team who deemed them fit for surgery. The site was marked, the patient was willing to proceed with the procedure. Part I: The patient was transferred to the operative suite by the Department of anesthesia. They were then drifted off to sleep by the department anesthesia GETA was performed. The patient tolerated this well. [Arriola catheter was placed by nursing staff, atraumatically]. Once confirmation of lines and v entilation the patient was transferred to a flattop Angel table and placed in the right lateral decubitus position. Axillary roll was placed. A bump was placed under the patient's right hip to allow for distraction at the iliolumbar region. The patient was secured to the table with tape and his hip was taped down. His arms were placed. All bony prominences including wrists, elbows, axilla, chest, hips, and thighs, and feet were padded very well. Special attention was paid to the genitalia and these were padded accordingly. SCDs were placed on bilateral lower extremities and were connected. Arms were well padded and placed [on arm boards up and out in the 90/90 position]. Once in position, again we confirmed good ventilation capabilities and that lines were running appropriately. The patient's lateral lumbar and pelvic region was then exposed. 1010s were placed outlining the incision site. Standard alcohol was used to clean the incision site and allowed to dry. C-arm was used to biomark the patient and confirm level for incision which was marked with a skin marker. Operative briefing was performed with all teams and everyone in agreement to proceed. The patient was then prepped and draped in a normal sterile fashion. Timeout was then performed and all parties were in agreement with the procedure to be performed. We then made a transverse incision over the previously biomarked area just superior to the illiac wing on the Lt and in line with the midportion of the vertebral bodies as outlined previously. We then bluntly dissected down till we encountered the outter facial layer over the obliques. We then used two large bobby clamps to bluntly dissect through the External, internal and transverse abdominal layers until we could see retroperitoneal fat. Then using kitner and blunt dissection were able to palpate the psoas muscle and sweep the peritoneal contents anteriorly and atraumatically. Once this was accomplished, we again palpated the psoas and the TP. We then placed a blunt probe and took images to localize the L4-5 disc space. Once at the midpoint on a lateral of the disc space we used the probe to stimulate the blunt dilator in all 4 quadrants. In all quadrants we were able to achieve >12 mA until response. We then placed a pin within the disc space and confirmed placement on AP and Lat films. We then placed the second dilator and again stimulated in all 4 quadrants and were again able to achieve >12 mA in all. We then bluntly and atraumatically placed the [place] 3 blade retractor system over these dilators. We then confirmed placement with Ap and Lateral images. ONce in place we secured the retractor to the table and again stimulated all blades and achieved similar responses. We then placed a luis in the posterior blade within the disc space to secure the retractor. We then used bipolar EC to clear minor wisps of psoas off the disc space and to obtain hemostasis of the area. We explanded the retractor slowly and removed the dilators. We had good visualization and so we continued by entering the disc space with a knife and then a patel. The patel was sent to the contralateral side under image guidance to release the contralateral annulus. We then passed box cutters of varying sizes and cleaned any disc from the space with pituitary. We placed brisa and sizers under image guidance as well to open disc space and distract as well as correct deformity at this level. We then selected a size 10 x 55 implant with 12 deg lordosis. It was packed with graft and then impacted into position with image guidance. Once in good position we removed the government auditor and confirmed its position on AP and Lat images. It was in good position. We then irrigated the area, performed hemostasis. The luis was retracted and the retractor system was carefully removed making sure to protect the peritoneum. There were no injuries. We then set up for the next level. We then turned our attention to the L3-4 level and through the same incision performed the same steps as outlined above. We placed dilators, stimulated and confirmed all dilator and retractor placement with imaging. We performed similar disc prep, irrigated disc and were able to place an 8 x 55 8 deg lateral cage. Once cage was in position we confirmed on AP and Lateral. We then carefully removed the retractor. There were no injuries and hemostasis was achieved. We then turned our attention to the L2-3 level where throught the same incision performed the same steps as outlined above. We placed dilators, stimulated and confirmed all dilator and retractor placement with imaging. We performed similar disc prep, irrigated disc and placed an 8 mm x 60 mm 8 deg lateral lordotic cage that was packed with bone graft. This aided further in pts deformity correction and with indirect decompression of the area. We then performed hemostasis and carefully removed the retractor. There were no injuries and hemostasis was maintained. We then took final images of all cages in position and we had regained some lordosis of the spine. We then irrigated and closed the incision using 0 vicryl in the facia followed by 2-0 viryl in the sub q tissue followed by 3.0 stratafix in the subcuticular region. This was then cleaned and exofin glue tape placed and glue placed over this. The wound was then dressed with steril telfa and tegaderm. The patient was then transferred back to his hospital bed atraumatically and the room was changed over for the second stage. Part II: The patient was redosed a weight-based dose of antibiotics in the form of 2 g Ancef. Once confirmation of lines and ventilation the patient was transferred to a prone Angel table very carefully. All bony prominences including wrists, elbows, axilla, chest, hips, and thighs, and feet were padded very well. Special attention was paid to the genitalia and these were padded accordingly. SCDs were placed on bilateral lower extremities and were connected. Arms were well padded and placed on arm boards up and out in the 90/90 position. Once in position, again we confirmed good ventilation capabilities and that lines were running appropriately. The patient's Thoracolumbar spine was then exposed. 1010s were placed outlining the incision site. Standard alcohol was used to clean the incision site and allowed to dry. C-arm was used to biomark the patient and confirm level for incision which was marked with a skin marker. Operative briefing was performed with all teams and everyone in agreement to proceed. The patient was then prepped and draped in a normal sterile fashion. Timeout was then performed and all parties were in agreement with the procedure to be performed. Local anesthetic given remote to the incision site. Midline incision was then made from [id number] level. We then dissected down to the facial plane and identified it and cleaned with a patel. Once this was accomplished we performed subperiosteal dissection over the SP, lamina, facet joints and TP of L1-Pelvic region. We decorticated TPs at each level. We then performed dissection up to T10 exposing out to TVP at each level. Once dissection was completed from T10 to PSIS region we placed a SP clamp on T9 SP for Navigation tracker placement. We then irrigated the incision site with NSS. We then placed a blue towel and Z drape and a 3D Ziehm spin was completed we were able to capture from T10 to L3. The spin was then checked for navigation accuracy and it was accurate. We then proceeded with placement of pedicle screws using intraoperative Showell - [employer] Simple, Fast and Elegant Tablet Sales App 3D navigation at T10 to L3 with the following process: Rongure was used to remove excess bone from TP and facet joints. High speed navigated mary was used to decorticate facet joints and to create airplane pilot photogrammetry holes at each pedicle level with navigation. We then used a navigated drill and tap to prep the pedicles at each level. Each pedicle was then sounded with a ball tip probe to ensure all duarte and no violation of pedicle. We then measured and placed with navigation each screw from T10 to L3. Once these screws were placed we took AP and Lat images to ensure good screw placement and they were confirmed. We then moved the tracker to the SP of L3 and performed another intraoperative 3D spin to register the lower half of the spine and pelvis. Once this was completed we checked for accuracy and the navigation was accurate. We then proceeded to place pedicle screws from L3 to S1 in the same fashion as described above. Once at the pelvis, we first performed the L pelvic screw using first a nagivated mary followed by a navigated pedicle finder and under lateral flouroscopy advanced the pedicle finder towards the GT of the hip, above the sciatic notch and in line with the AIIS. We then checked judet views to confirm that we were inside the teardrop and we were. We then tapped, irrigated and placed a pelvic screw into this area. We repeated this process on the RHS as well without issues. We then took AP and Lateral images as well as judet views to visualize lower screws from L3-P and they were in good position. We did leave L5 screws out at first but prepped the pedicles as they would be in the way of our decompression and interbody at L5 S1. They were latera placed after out decompression without issues. We tested the screws once the L5 screws were in place and all tested above 20 mA. We then turned our attention to decompression and L5-S1 disc prep. We performed bilateral laminectomy facetectomy and foraminotomy at L4-S1 to allow for decompression and reduction in this area. We then performed under careful protection of the dura and L5 exiting root bilateral intradiscal 3 column osteotomy of L5-S1 for deformity correction and disc space access. Once osteotomy was complete we accessed the remainder of the disc space, sequentially shaved bilaterally. We shaved one side first until we reached desired height and endplate contact, placed an Oskouian angle bender in the LHS, then turned our attention to the RHS. We sequentially shaved the disc space on this side as well to the desired height and placed another Oskouian angle bender. This allowed for good height mormonism as well as reduction. One this was accomplished, we then atraumatically placed an expandable Globus cage at L5-S1. We first packed the disc space anteriorly after irrigating the disc space with NSS, with theracell bullets, followed by autograft and dbm. We then placed the cage. We then expanded the cage under lateral images until good reduction and height were restored. We then back filled the cage with dbm, autograft and bio 4. We then removed the government auditor and tested the cage and it was stable. We then turned our attention to the rods. Malleable rods were used to template, we then cut and bent dual 6.0 rods to allow for reduction. We secured them into bilateral pelvic fixation and sequentially reduced them into each screw as we ascended up to T10. We then placed set screws and final tightened each screw to torque. This allowed for excellent reduction and lordosis. We then decorticated further the facet joints, TP and Sp of T10-P. We then irrigated the wound with 6L of abx saline followed by 6 L of NSS. We then placed surgicel over the dura. We performed a valsalva to 40 and there were no dural leaks. We then placed two crosslinks in the lumbar and thoracic region. We then placed bone graft in the posteriolateral gutters, pelvic gutters and lumbo sacral region. This was impaced into place. We then placed two deep drains and secured them with nylon stitch. We then placed vancomycin deep in the wound 2 g. We then closed the wound first with #1 vicryl in the facia followed by a running unidirectional strata fix suture. We then irrigated and closed the deep subq with 0 vicryl. The superficial subq was closed with 2-0 vicryl and the skin closed with skin sandra. The wound edges approximated very well. We then cleaned the wound with alcohol and dressed it with cellerate gel followed by an aquacel dressing. We placed drain sponges and tegaderms over the drains. The patient was transferred back to his hospital bed atraumatically. Drain continued to hold suction and were in good position. Patient was then taken to the ICU, intubated. He tolerated the procedure very well with no complications.
[2021-01-24] MEDS: HYDROmorphone 1 MG/ML 1 ML SYRINGE IVP PRN ×3 (14:26→22:55)
--- NOTE | 2021-01-24 17:56 | P.PN ---
Subjective Progress Note Date: 01/24/21 (Delayed charting seen and 1145) Principal diagnosis: Back pain Patient is a 60 yo CM with admitted L2-5 fusion and decompression. Patient seen and examined at bedside. He is sitting up in a chair. He states his pain is fairly well controlled. He feels slightly lightheaded after sitting up. Denies any chest pain or shortness of breath. His any nausea or vomiting. Patient seen and examined at bedside. General: non toxic, no distress, appears at stated age Derm: warm, dry Head: atraumatic, normocephalic, symmetric Eyes: EOMI, no lid lag, anicteric sclera Mouth: no lip lesion, mucus membranes moist Cardiovascular: S1S2 reg, no murmur, positive posterior tibial pulse bilateral, Lungs: Decreased bs bilateral, no rhonchi, no rales , no accessory muscle use Abdominal: soft, nontender to palpation, no guarding, no appreciable organomegaly Ext: no gross muscle atrophy, no edema, no contractures, drains in place with sanguineous drainage Neuro: CN II-XI grossly intact, no focal neuro deficits Psych: Alert, oriented, appropriate affect 60-year-old male status post L2 to L5 interbody fusion and decompression at L5 through S1 Acute blood loss anemia - anticipated outcome of surgery - follow CBC - check iron studies - no indication for transfusion. Hypertension -Controlled without medications -Follow blood pressures Dyslipidemia - Not chronically on any medications -Outpatient follow-up COPD -Without exacerbation -As needed bronchodilators Nicotine dependence without withdrawal -Supportive care Thank you for allowing us to participate in the care of this pleasant patient. Do not hesitate to contact us with questions. Someone can be reached from the [facility] hospitalist group all hours of the day at [phone] or via [employer]. Objective - Vital Signs Vital signs: Vital Signs Temp 98.4 F 01/24/21 08:00 Pulse 98 01/24/21 08:00 Resp 7 L 01/24/21 08:00 BP 128/73 01/24/21 08:00 Pulse Ox 94 L 01/24/21 08:00 Intake & Output 01/23/21 01/24/21 01/24/21 18:59 06:59 18:59 Intake Total 1220 1200 560 Output Total 1080 1195 120 Balance 140 5 440 Intake: IV 1220 1200 100 0.9% NaCl with KCl 20 Meq 1200 1200 100 /l 1,000 ml @ 100 mls/hr IV .Q10H MELISSA Rx#: [id number] Lactated Ringers 1,000 ml 20 @ 20 mls/hr IV .Q24H MELISSA Rx#:[id number] Intake, IV Titration 100 Amount Sodium Chloride 0.9% 1, 100 000 ml @ 100 mls/hr IV . Q10H MELISSA Rx#:[id number] Oral 360 Output: Drainage 305 200 Lower Back 150 80 Upper Back 155 120 Urine 775 995 120 Other: Voiding Method Indwelling Catheter Indwelling Catheter ABP, PAP, CO, CI - Last Documented Arterial Blood Pressure 153/65 - Labs CBC & Chem 7: 01/24/21 04:00 01/24/21 04:00 Labs: Abnormal Lab Results - Last 24 Hours (Table) 01/23/21 01/24/21 01/24/21 Range/Units 12:05 04:00 04:00 WBC 13.1 H (3.8-10.6) k/uL RBC 2.78 L (4.30-5.90) m/uL Hgb 9.2 L D (13.0-17.5) gm/dL Hct 28.8 L (39.0-53.0) % MCV 103.7 H (80.0-100.0) fL Neutrophils # 10.1 H (1.3-7.7) k/uL Monocytes # 1.2 H (0-1.0) k/uL Sodium 135 L (137-145) mmol/L BUN 7 L (9-20) mg/dL Creatinine 0.65 L (0.66-1.25) mg/dL POC Glucose (mg/dL) 108 H (75-99) mg/dL Calcium 7.8 L (8.4-10.2) mg/dL AST 71 H (17-59) U/L Total Protein 4.4 L (6.3-8.2) g/dL Albumin 2.4 L (3.5-5.0) g/dL Microbiology - Last 24 Hours (Table) 01/22/21 20:26 Gram Stain - Preliminary Sputum Sputum Culture - Preliminary
[2021-01-25] MEDS: ACETAMINOPHEN TAB 500 MG TAB PO SCH ×4 (02:22→19:51)
[2021-01-25 04:31] LABS: HCT 27.9 % (39.0-53.0); HGB 8.9 gm/dL (13.0-17.5); MCH 33.3 pg (25.0-35.0); MCHC 31.7 g/dL (31.0-37.0); Macrocytosis Slight; Platelet Count 201 k/uL (150-450); RBC 2.66 m/uL (4.30-5.90); RDW 12.4 % (11.5-15.5); WBC 11.2 k/uL (3.8-10.6)
[2021-01-25 04:48] LABS: African American GFR (CKD) >90 (>60 ml/min/1.73 sqM); Anion Gap 2 mmol/L; Blood Urea Nitrogen 6 mg/dL (9-20); Calcium 8.3 mg/dL (8.4-10.2); Carbon Dioxide 28 mmol/L (22-30); Chloride 104 mmol/L (98-107); Glucose 93 mg/dL (74-99); Non-African American GFR(CKD) >90 (>60 ml/min/1.73 sqM); Sodium 134 mmol/L (137-145)
[2021-01-25] MEDS: CYCLOBENZAPRINE 10 MG TAB PO PRN ×2 (06:19→16:16)
[2021-01-25] MEDS: IPRATROPIUM-ALBUTEROL 3 ML NEB INHALATION SCH ×3 (07:28→20:46)
[2021-01-25] MEDS: PANTOPRAZOLE 40 MG/10 ML VIAL IVP SCH (08:53)
[2021-01-25] MEDS: HEPARIN SODIUM,PORCINE/PF 5,000 UNIT/0.5 ML SYRINGE SQ SCH ×2 (08:53→19:51)
[2021-01-25] MEDS: HYDROmorphone 1 MG/ML 1 ML SYRINGE IVP PRN ×2 (09:01→14:22)
--- NOTE | 2021-01-25 10:33 | P.PN ---
Subjective Progress Note Date: 01/25/21 60-year-old white male, with past medical history of hypertension, hypercholesterolemia, COPD, chronic and ongoing nicotine dependence, osteoarthritis, chronic low back pain, lumbar spine spondylosis with right lower extremity radiculopathy and weakness and neurogenic claudication. Patient underwent L2-5 lateral interbody fusion with second stage T10 to pelvis decompression fusion with L5-S1 interbody fusion on 01/22/2021. Following his surgery patient remained intubated and sedated on mechanical ventilator overnight. Today on 01/23/2021 he seen in the intensive care unit, sedated and intubated on assist control mode of ventilation with a rate of 16, tidal line was 500, FiO2 of 35% and PEEP of 5. This morning's blood gas shows pO2 of 105, pCO2 of 45, and pH of 7.37 and this was done on FiO2 of 35%, chest x-ray shows prominence of the interstitium, possibility of underlying emphysema. Patient is currently on 0.9 normal saline at a rate of 100 ML per hour, Diprivan is a 40 mics per kilo per minute, hemodynamically patient is stable, not on any vasopressor support, slightly hypertensive this morning, as his becoming more awake. He is following simple commands, he is able to open eyes to voice. This morning his blood work reveals white blood cell, 15.8, hemoglobin of 11.5, sodium is 134, the rest of her electrolytes were within normal limits, BUN was 9 creatinine 0.72. he is in sinus mechanism. patient has 2 GALO drains in his lateral thoracic spine, with small amount of sanguinous output. No acute events overnight, anticipate proceeding with extubation On 01/24/2021 patient seen in follow-up in intensive care unit, today is postoperative day #1, status post L2 to L5 lateral interbody fusion, T10 to Pelvis decompression fusion with L5-S1 interbody fusion. Patient was succ essfully weaned and extubated from mechanical ventilator yesterday. Tolerating extubation quite well so far, he is on liters of oxygen pulse ox is 97%, yesterday's chest x-ray showed possible prominence of interstitium, underlying emphysema. CHEST x-ray today shows no acute cardiopulmonary disease. Patient is breathing comfortable, he has been working on incentive spirometer, his incentive spirometer effort is 2 L today, lung sounds are diminished, no wheezing or coughing, signs have been stable, no fever or chills, he has 0.9 infusing at a rate of 100 ML per hour, no other infusions, patient does have epidural in place, he was started on oral medications today per surgery, and epidural is currently being weaned down. Today's labs have been reviewed, white blood cell count is 13.1, hemoglobin is 9.2, sodium is 135, potassium is 4.0, chloride is 107, BUN is 7, creatinine 0.65. Patient is tolerating oral intake, had a CT of the lumbar spine which showed severe metallic artifact obscuring the spinal canal and for that reason the exam was nondiagnostic, it did show small bilateral pleural effusions and bibasilar infiltrates with extensive subcutaneous emphysema involving the posterior soft tissues extending into the musculature and along the posterior margin of the vertebral column that could be postsurgical. Remains in place, and patient is making adequate urine in the order of 50-75 ML per hour. On 01/25/2021 patient seen in follow-up in the intensive care unit, he has been awaiting a bed on medical surgical floor since yesterday, he has remained stable, he is currently on 2 L of oxygen and his pulse ox is 96%, patient does desaturate to 88% when the oxygen is removed and when he sleeping. Breathing comfortably, a few scattered rhonchi auscultated on today's exam, his incentive spirometer effort is around 2 L, patient is very compliant with incentive spirometer, yesterday he was up in the chair, tolerated activity well. His dressings on his thoracolumbar spine and right posterior lateral chest then left side of the chest have been changed by CT surgery, one of the GALO drains have been removed, the remaining GALO drain on the right side of the chest is still draining serosanguineous output. Labs have been reviewed, white blood cell count is improving, down to 11.2, hemoglobin is 8.9, sodium is 134, the rest of electrolytes were within normal limits, BUN 6, creatinine 0.68. Urine culture has been sent showing moderate PMNs, no organisms. Objective - Vital Signs Vital signs: Vital Signs Temp 98.4 F 01/25/21 02:00 Pulse 98 01/25/21 08:00 Resp 20 01/25/21 08:00 BP 116/51 01/25/21 02:00 Pulse Ox 96 10/22/21 02:00 Intake & Output 01/24/21 01/25/21 01/25/21 18:59 06:59 18:59 Intake Total 2400 720 Output Total 1700 2225 200 Balance 700 -1505 -200 Weight 69 kg Intake: IV 100 0.9% NaCl with KCl 20 Meq 100 /l 1,000 ml @ 100 mls/hr IV .Q10H MELISSA Rx#: [id number] Intake, IV Titration 500 Amount Sodium Chloride 0.9% 1, 500 000 ml @ 100 mls/hr IV . Q10H MELISSA Rx#:[id number] Oral 1800 720 Output: Drainage 130 200 Lower Back 60 80 Upper Back 70 120 Urine 1570 2225 Other: Voiding Method Urinal Urinal Urinal # Voids 3 ABP, PAP, CO, CI - Last Documented Arterial Blood Pressure 101/87 - Exam GENERAL EXAM: 60-year-old white male, on 2 L of oxygen and the pulse ox of 96% comfortable in no apparent distress. HEAD: Normocephalic/atraumatic. EYES: Normal reaction of pupils, equal size. Conjunctiva pink, sclera white. NOSE: Clear with pink turbinates. THROAT: No erythema or exudates. NECK: No masses, no JVD, no thyroid enlargement, no adenopathy. CHEST: No chest wall deformity. Symmetrical expansion. LUNGS: Equal air entry with no crackles, wheeze, rhonchi or dullness. CVS: Regular rate and rhythm, normal S1 and S2, no gallops, no murmurs, no rubs ABDOMEN: Soft, nontender. No hepatosplenomegaly, normal bowel sounds, no guarding or rigidity. EXTREMITIES: No clubbing, no edema, no cyanosis, 2+ pulses and upper and lower extremities. MUSCULOSKELETAL: Muscle strength and tone normal. SPINE: No scoliosis or deformity. back incision rhythm with a surgical dressing, clean dry and intact 1 GALO drains in the lateral spine, there is interval removal of the superior GALO drain. The remaining GALO drain is compressed and draining small amount of sangineous output SKIN: No rashes CENTRAL NERVOUS SYSTEM: Awake and alert, oriented 3. No focal deficits, tone is normal in all 4 extremities. - Labs CBC & Chem 7: 01/25/21 04:08 01/25/21 04:08 Labs: Abnormal Lab Results - Last 24 Hours (Table) 01/25/21 01/25/21 Range/Units 04:08 04:08 WBC 11.2 H (3.8-10.6) k/uL RBC 2.66 L (4.30-5.90) m/uL Hgb 8.9 L (13.0-17.5) gm/dL Hct 27.9 L (39.0-53.0) % MCV 105.0 H (80.0-100.0) fL Sodium 134 L (137-145) mmol/L BUN 6 L (9-20) mg/dL Calcium 8.3 L (8.4-10.2) mg/dL Assessment and Plan Plan: Assessment: #1. Routine postoperative ventilator management post L2 to L5 lateral interbody fusion, second stage T10 to pelvis decompression fusion with L5-S1 interbody fusion, and was extubated on postoperative day #1, on 01/23/2021. Tolerating E xtubation quite well so far #2. Lumbar and sacral spine stenosis, spondylolisthesis and spondylolysis, status post L2 to L5 lateral interbody fusion, second stage T10 to pelvis decompression fusion with L5-S1 interbody fusion, on 01/22/2021 #3. Hypertension #4. Hypercholesterolemia #5. COPD, severity of which is unknown to us at this time, not oxygen dependent at baseline #6. Chronic nicotine dependence, in remission for last 2 months #7. Osteoarthritis Plan: Patient has remained stable Breathing comfortably, continue weaning FiO2 Encourage deep breathing and coughing Encourage incentive spirometry use Labs reviewed Maintain pain control GI and DVT prophylaxis per surgery Tolerating oral intake Activity as tolerated Stable for transfer to medical surgical floor without telemetry today if OK with Surgery I performed a history & physical examination of the patient and discussed their management with my nurse practitioner, Norma Bashir. I reviewed the nurse practitioner's note and agree with the documented findings and plan of care. Lung sounds are positive for clear breaths throughout the lung mills. The findings and the impression was discussed with the patient. I attest to the documentation by the nurse practitioner. Time with Patient: Less than 30
[2021-01-25 11:15] LABS: % Iron Saturation 11.03 (15.00-50.00); Iron 22 ug/dL (65-175); Total Iron Binding Capacity 203 ug/dL (228-460)
--- NOTE | 2021-01-25 14:27 | P.PN ---
Subjective Progress Note Date: 01/25/21 Principal diagnosis: 1. 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 L5-S1 spondylolysis with spondylolisthesis Grade I-II 3. Lumbar Deformity 4. b/l LE radiculopathy 5. b/l LE weakness 6. Neurogenic claudication Patient was seen at bedside this morning resting semirecumbent in bed. Patient states he got up and sat in chair yesterday. Patient says he has not been up This morning. Patient says he is still having some generalized pain, but YEAST CAKE CUTTER is helping control some of that. Patient denies chest pain, fever, shortness breath, nausea, vomiting, change in vision, loss of bowel/bladder control. Objective - Vital Signs Vital signs: Vital Signs Temp 98.4 F 01/25/21 02:00 Pulse 98 01/25/21 08:00 Resp 20 01/25/21 08:00 BP 116/51 01/25/21 02:00 Pulse Ox 96 01/25/21 02:00 Intake & Output 01/24/21 01/25/21 01/25/21 18:59 06:59 18:59 Intake Total 2400 720 Output Total 1700 2225 200 Balance 700 -1505 -200 Weight 69 kg Intake: IV 100 0.9% NaCl with KCl 20 Meq 100 /l 1,000 ml @ 100 mls/hr IV .Q10H MELISSA Rx#: [id number] Intake, IV Titration 500 Amount Sodium Chloride 0.9% 1, 500 000 ml @ 100 mls/hr IV . Q10H MELISSA Rx#:[id number] Oral 1800 720 Output: Drainage 130 200 Lower Back 60 80 Upper Back 70 120 Urine 1570 2225 Other: Voiding Method Urinal Urinal Urinal # Voids 3 ABP, PAP, CO, CI - Last Documented Arterial Blood Pressure 101/87 - Exam Spine: 1 of 2 GALO drains was removed. Optifoam dressing was removed and replaced with new optifoam dressing over incision. Incision is clean, intact. Incision negative for any purulence, fluctuance Inspection: There is moderate serous in his output in the GALO drains. Opted foam dressing was removed. [place] are intact and well aligned. There is no areas of purulence along incision. No open ulcers/wounds. Sensation: Sensation is equal, symmetric, bilaterally intact throughout Palpation: Minimal tenderness to palpation throughout spine. Range of motion: Patient is able to wiggle toes bilaterally while lying in bed. Patient is able to lift legs bilaterally off the bed. Neurovascular status: Refill under 3 seconds bilaterally. DP pulse intact, 2+ bilaterally. - Labs CBC & Chem 7: 01/25/21 04:08 01/25/21 04:08 Labs: Abnormal Lab Results - Last 24 Hours (Table) 01/25/21 01/25/21 Range/Units 04:08 04:08 WBC 11.2 H (3.8-10.6) k/uL RBC 2.66 L (4.30-5.90) m/uL Hgb 8.9 L (13.0-17.5) gm/dL Hct 27.9 L (39.0-53.0) % MCV 105.0 H (80.0-100.0) fL Sodium 134 L (137-145) mmol/L BUN 6 L (9-20) mg/dL Calcium 8.3 L (8.4-10.2) mg/dL Iron 22 L (65-175) ug/dL TIBC 203 L (228-460) ug/dL % Saturation 11.03 L (15.00-50.00) Transferrin 145.0 L (204.0-354.0) mg/dL Ferritin 661.0 H (22.0-322.0) ng/mL Microbiology - Last 24 Hours (Table) 01/22/21 20:26 Gram Stain - Final Sputum Sputum Culture - Final Assessment and Plan Assessment: 60-year-old male postoperative day 3 two-stage procedure lateral interbody fusion L2 to L5 with second stage T10 to pelvis decompression fusion with L5-S1 interbody fusion Plan: 1. Lumbar degenerative scoliosis with PI:LL mismatch; L5-S1 spondylolysis with spondylolisthesis Grade I-II; Lumbar Deformity; b/l LE radiculopathy; b/l LE weakness; Neurogenic claudication - surgery perfromed Thursday01/22/2021 - patient stable at bedside this morning. Optifoam foam dressing was removed and replaced with a new optifoam dressing. 1 of 2 GALO drains was removed. Plan to move patient to the floor from ICU today waiting on bed. 2. Appreciate medical management; appreciate pulmonology management 3. Pain management - continue YEAST CAKE CUTTER and oral medications 4. DVT prophylaxis - heparin 5. GI prophylaxis - protonix; senna 6. Encourage incentive spirometer use 7. PT/OT - weightbearing as tolerated with walker 8. Discharge planning - pending Time with Patient: Less than 30
--- NOTE | 2021-01-25 16:32 | P.PN ---
Subjective Progress Note Date: 01/25/21 Patient seen and evaluated at bedside, today patient does not report any worsening of his breathing or report any new significant chest pain. Patient remains in no acute distress. Patient questions and concerns addressed at bedside, proper counseling done. Plan discussed with nursing staff. Objective - Vital Signs Vital signs: Vital Signs Temp 98.4 F 01/25/21 02:00 Pulse 98 01/25/21 08:00 Resp 20 01/25/21 08:00 BP 116/51 01/25/21 02:00 Pulse Ox 96 01/25/21 02:00 Intake & Output 01/24/21 01/25/21 01/25/21 18:59 06:59 18:59 Intake Total 2400 720 Output Total 1700 2225 200 Balance 700 -1505 -200 Weight 69 kg Intake: IV 100 0.9% NaCl with KCl 20 Meq 100 /l 1,000 ml @ 100 mls/hr IV .Q10H MELISSA Rx#: [id number] Intake, IV Titration 500 Amount Sodium Chloride 0.9% 1, 500 000 ml @ 100 mls/hr IV . Q10H MELISSA Rx#:[id number] Oral 1800 720 Output: Drainage 130 200 Lower Back 60 80 Upper Back 70 120 Urine 1570 2225 Other: Voiding Method Urinal Urinal Urinal # Voids 3 ABP, PAP, CO, CI - Last Documented Arterial Blood Pressure 101/87 General: non toxic, no acute distress, alert oriented to time place and person Head: atraumatic, normocephalic, symmetric Eyes: no lid lesion], anicteric sclera Mouth: no lip lesion, mucus membranes moist Cardiovascular: S1S2 reg rate and rhythm, no murmur, no gallop Lungs: Bilateral equal air entry, no wheezing no rhonchi no crackles. Abdominal: soft, nontender to palpation, no guarding, no appreciable organomegaly Ext: no gross muscle atrophy, no edema extremities warm to suppose a positive Neuro: Alert oriented to time place and person, exam grossly nonfocal Psych: Mood and affect appropriate, patient not so certain Skin exam: No rashes no jaundice. - Labs CBC & Chem 7: 01/25/21 04:08 01/25/21 04:08 Labs: Abnormal Lab Results - Last 24 Hours (Table) 01/25/21 01/25/21 Range/Units 04:08 04:08 WBC 11.2 H (3.8-10.6) k/uL RBC 2.66 L (4.30-5.90) m/uL Hgb 8.9 L (13.0-17.5) gm/dL Hct 27.9 L (39.0-53.0) % MCV 105.0 H (80.0-100.0) fL Sodium 134 L (137-145) mmol/L BUN 6 L (9-20) mg/dL Calcium 8.3 L (8.4-10.2) mg/dL Iron 22 L (65-175) ug/dL TIBC 203 L (228-460) ug/dL % Saturation 11.03 L (15.00-50.00) Transferrin 145.0 L (204.0-354.0) mg/dL Ferritin 661.0 H (22.0-322.0) ng/mL Microbiology - Last 24 Hours (Table) 01/22/21 20:26 Gram Stain - Final Sputum Sputum Culture - Final Assessment and Plan Assessment: Acute blood loss anemia - anticipated outcome of surgery - follow CBC - check iron studies - no indication for transfusion. Hypertension -Controlled without medications -Follow blood pressures COPD -Without exacerbation -As needed bronchodilators Status post L2 to L5 interbody fusion and decompression at L5 through S1 -Post op pain/post operative care per surgery -Post DVT prophylaxis per surgery Dyslipidemia - Not chronically on any medications -Outpatient follow-up Nicotine dependence without withdrawal -Supportive care
[2021-01-26] MEDS: ACETAMINOPHEN TAB 500 MG TAB PO SCH ×4 (02:39→20:23)
[2021-01-26] MEDS: IPRATROPIUM-ALBUTEROL 3 ML NEB INHALATION SCH ×3 (07:39→21:25)
--- NOTE | 2021-01-26 08:50 | P.PN ---
Subjective Progress Note Date: 01/26/21 Principal diagnosis: Principal diagnosis: 1. 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 L5-S1 spondylolysis with spondylolisthesis Grade I-II 3. Lumbar Deformity 4. b/l LE radiculopathy 5. b/l LE weakness 6. Neurogenic claudication Patient was seen at bedside this morning resting semirecumbent in bed. Patient states he got up and sat in chair yesterday. Patient says he has not been up This morning. Patient says he is still having some generalized pain but it is improving and he is no longer on CLINICAL PHARMACIST. He denies any new symptoms or changes in the last 24 hours. Left GALO drain was pulled on 01/25/21. Right GALO drain has recorded output of 80 overnight with serosanguineous drainage present. Exam :Inspection: There is moderate serous output in the remaining GALO drain. Opted foam dressing clean dry and intact. Sensation: Sensation is equal, symmetric, bilaterally intact throughout Palpation: Minimal tenderness to palpation throughout spine. Range of motion: Patient is able to wiggle toes bilaterally while lying in bed. Patient is able to lift legs bilaterally off the bed. Neurovascular status: Refill under 3 seconds bilaterally. DP pulse intact, 2+ bilaterally. Assessment: 60-year-old male postoperative day 4 two-stage procedure lateral interbody fusion L2 to L5 with second stage T10 to pelvis decompression fusion with L5-S1 interbody fusion Plan: 1. Lumbar degenerative scoliosis with PI:LL mismatch; L5-S1 spondylolysis with spondylolisthesis Grade I-II; Lumbar Deformity; b/l LE radiculopathy; b/l LE weakness; Neurogenic claudication - surgery perfromed Thursday01/22/2021 - patient stable at bedside this morning. Optifoam foam dressing still clean dry and intact after replacement on 01/25/21. GALO drains to stay in until less than 80ml of output overnight anticipate possible removal in next 24 hours. Plan to move patient to the floor from ICU today waiting on bed. 2. Appreciate medical management; appreciate pulmonology management 3. Pain management - Continue oral/IV medications 4. DVT prophylaxis - heparin 5. GI prophylaxis - protonix; senna 6. Encourage incentive spirometer use 7. PT/OT - weightbearing as tolerated with walker 8. Discharge planning - pending -Raimundo Ceballos DO Orthopedic Hand/Upper Extremity Surgeon Objective - Vital Signs Vital signs: Vital Signs Temp 98 F 01/26/21 02:00 Pulse 98 01/26/21 02:00 Resp 18 01/26/21 02:00 BP 136/92 01/26/21 02:00 Pulse Ox 93 L 01/26/21 02:00 Intake & Output 01/25/21 01/26/21 01/26/21 18:59 06:59 18:59 Intake Total 240 240 Output Total 610 1505 Balance -370 -1265 Weight 67.4 kg Intake: Oral 240 240 Output: Drainage 285 280 Lower Back 165 160 Upper Back 120 120 Urine 325 1225 Other: Voiding Method Urinal Urinal # Voids 2 ABP, PAP, CO, CI - Last Documented Arterial Blood Pressure 101/87 - Labs CBC & Chem 7: 01/25/21 04:08 01/25/21 04:08 Labs: Abnormal Lab Results - Last 24 Hours (Table) 01/25/21 Range/Units 04:08 Iron 22 L (65-175) ug/dL TIBC 203 L (228-460) ug/dL % Saturation 11.03 L (15.00-50.00) Transferrin 145.0 L (204.0-354.0) mg/dL Ferritin 661.0 H (22.0-322.0) ng/mL Microbiology - Last 24 Hours (Table) 01/22/21 20:26 Gram Stain - Final Sputum Sputum Culture - Final
--- NOTE | 2021-01-26 09:05 | P.PN ---
Subjective Progress Note Date: 01/26/21 On today's evaluation 01/23/2021, the patient is postop day #3. He is doing well. He was extubated successfully. He had issues with lower extremity weakness and radiculopathy and claudications and has still a right-sided GALO drain in place and output has been in the order of 85 mL overnight. The left-s ided GALO drain has been removed. Using incentive spirometer. Pain is under adequate control. On room air oxygen. Tolerating the diet. No nausea or vomiting. No altered mentation. Surgical wound site is dry clean and intact. The plan is to either transferred to the floor was discharged home with the next 24-48 hours. Objective - Vital Signs Vital signs: Vital Signs Temp 98 F 01/26/21 02:00 Pulse 98 01/26/21 02:00 Resp 18 01/26/21 02:00 BP 136/92 01/26/21 02:00 Pulse Ox 93 L 01/26/21 02:00 Intake & Output 01/25/21 01/26/21 01/26/21 18:59 06:59 18:59 Intake Total 240 240 Output Total 610 1505 Balance -370 -1265 Weight 67.4 kg Intake: Oral 240 240 Output: Drainage 285 280 Lower Back 165 160 Upper Back 120 120 Urine 325 1225 Other: Voiding Method Urinal Urinal # Voids 2 ABP, PAP, CO, CI - Last Documented Arterial Blood Pressure 101/87 - Exam GENERAL EXAM: 60-year-old white male, on RA HEAD: Normocephalic/atraumatic. EYES: Normal reaction of pupils, equal size. Conjunctiva pink, sclera white. NOSE: Clear with pink turbinates. THROAT: No erythema or exudates. NECK: No masses, no JVD, no thyroid enlargement, no adenopathy. CHEST: No chest wall deformity. Symmetrical expansion. LUNGS: Equal air entry with no crackles, wheeze, rhonchi or dullness. CVS: Regular rate and rhythm, normal S1 and S2, no gallops, no murmurs, no rubs ABDOMEN: Soft, nontender. No hepatosplenomegaly, normal bowel sounds, no guarding or rigidity. EXTREMITIES: No clubbing, no edema, no cyanosis, 2+ pulses and upper and lower extremities. MUSCULOSKELETAL: Muscle strength and tone normal. SPINE: No scoliosis or deformity. back incision rhythm with a surgical dressing, clean dry and intact 1 GALO drains in the lateral spine, there is interval removal of the superior GALO drain. The remaining GALO drain is compressed and draining small amount of sangineous output SKIN: No rashes CENTRAL NERVOUS SYSTEM: Awake and alert, oriented 3. No focal deficits, tone is normal in all 4 extremities. - Labs CBC & Chem 7: 01/25/21 04:08 01/25/21 04:08 Labs: Abnormal Lab Results - Last 24 Hours (Table) 01/25/21 Range/Units 04:08 Iron 22 L (65-175) ug/dL TIBC 203 L (228-460) ug/dL % Saturation 11.03 L (15.00-50.00) Transferrin 145.0 L (204.0-354.0) mg/dL Ferritin 661.0 H (22.0-322.0) ng/mL Microbiology - Last 24 Hours (Table) 01/22/21 20:26 Gram Stain - Final Sputum Sputum Culture - Final Assessment and Plan Plan: #1. Routine postoperative ventilator management post L2 to L5 lateral interbody fusion, second stage T10 to pelvis decompression fusion with L5-S1 interbody fusion, and was extubated on postoperative day #3, on 01/23/2021. Tolerating Extubation quite well so far #2. Lumbar and sacral spine stenosis, spondylolisthesis and spondylolysis, status post L2 to L5 lateral interbody fusion, second stage T10 to pelvis decompression fusion with L5-S1 interbody fusion, on 01/22/2021 #3. Hypertension #4. Hypercholesterolemia #5. COPD, severity of which is unknown to us at this time, not oxygen dependent at baseline #6. Chronic nicotine dependence, in remission for last 2 months #7. Osteoarthritis Plan: Patient has remained stable Currently on room air oxygen Encourage deep breathing and coughing Encourage incentive spirometry use Labs reviewed Maintain pain control GI and DVT prophylaxis per surgery Tolerating oral intake Activity as tolerated Management of GALO drains per spine surgery We'll continue to follow. The patient should be transferring out of the intensive care unit today.
[2021-01-26] MEDS: HEPARIN SODIUM,PORCINE/PF 5,000 UNIT/0.5 ML SYRINGE SQ SCH ×2 (09:36→20:23)
[2021-01-26] MEDS: PANTOPRAZOLE 40 MG/10 ML VIAL IVP SCH (09:36)
[2021-01-26] MEDS: CYCLOBENZAPRINE 10 MG TAB PO PRN (17:10)
--- NOTE | 2021-01-26 18:55 | P.PN ---
Subjective Progress Note Date: 01/26/21 Patient seen and evaluated at bedside, today patient does not report any worsening of his breathing or report any new significant chest pain. Patient remains in no acute distress. Patient questions and concerns addressed at bedside, proper counseling done. Plan discussed with nursing staff. Objective - Vital Signs Vital signs: Vital Signs Temp 98.4 F 01/26/21 15:46 Pulse 96 01/26/21 15:46 Resp 18 01/26/21 15:46 BP 137/91 01/26/21 15:46 Pulse Ox 95 01/26/21 15:46 Intake & Output 01/25/21 01/26/21 01/26/21 18:59 06:59 18:59 Intake Total 240 240 Output Total 610 1505 750 Balance -370 -9915 -750 Weight 67.4 kg Intake: Oral 240 240 Output: Drainage 285 280 50 Lower Back 165 160 50 Upper Back 120 120 Urine 325 1225 700 Other: Voiding Method Urinal Urinal Urinal # Voids 2 0 ABP, PAP, CO, CI - Last Documented Arterial Blood Pressure 101/87 General: non toxic, no acute distress, alert oriented to time place and person Head: atraumatic, normocephalic, symmetric Eyes: no lid lesion], anicteric sclera Mouth: no lip lesion, mucus membranes moist Cardiovascular: S1S2 reg rate and rhythm, no murmur, no gallop Lungs: Bilateral equal air entry, no wheezing no rhonchi no crackles. Abdominal: soft, nontender to palpation, no guarding, no appreciable organomegaly Ext: no gross muscle atrophy, no edema extremities warm to suppose a positive Neuro: Alert oriented to time place and person, exam grossly nonfocal Psych: Mood and affect appropriate, patient not so certain Skin exam: No rashes no jaundice. - Labs CBC & Chem 7: 01/25/21 04:08 01/25/21 04:08 Assessment and Plan Assessment: Acute blood loss anemia - anticipated outcome of surgery - follow CBC - check iron studies - no indication for transfusion. Hypertension -Controlled without medications -Follow blood pressures COPD -Without exacerbation -As needed bronchodilators Status post L2 to L5 interbody fusion and decompression at L5 through S1 -Post op pain/post operative care per surgery -Post DVT prophylaxis per surgery Dyslipidemia - Not chronically on any medications -Outpatient follow-up Nicotine dependence without withdrawal -Supportive care DVT prophylaxis: Per surgery CODE STATUS: Full code Discharge plan/next site of care: Patient wants to go back to home, possible discharge to home with home care once okay with surgery, patient medically stable to be discharged
[2021-01-27] MEDS: ACETAMINOPHEN TAB 500 MG TAB PO SCH ×4 (02:01→20:22)
[2021-01-27] MEDS: CYCLOBENZAPRINE 10 MG TAB PO PRN ×2 (02:01→09:55)
[2021-01-27] MEDS: IPRATROPIUM-ALBUTEROL 3 ML NEB INHALATION SCH ×3 (07:52→21:23)
[2021-01-27] MEDS: HEPARIN SODIUM,PORCINE/PF 5,000 UNIT/0.5 ML SYRINGE SQ SCH ×2 (08:22→20:22)
--- NOTE | 2021-01-27 09:28 | P.PN ---
Subjective Progress Note Date: 01/27/21 On today's evaluation 01/23/2021, the patient is postop day #3. He is doing well. He was extubated successfully. He had issues with lower extremity weakness and radiculopathy and claudications and has still a right-sided GALO drain in place and output has been in the order of 85 mL overnight. The left-s ided GALO drain has been removed. Using incentive spirometer. Pain is under adequate control. On room air oxygen. Tolerating the diet. No nausea or vomiting. No altered mentation. Surgical wound site is dry clean and intact. The plan is to either transferred to the floor was discharged home with the next 24-48 hours. 2020, the patient is postop day #4. He is doing extremely well. He is on room air oxygen. The right-sided GALO drain is still in place and it has drained approximately 100 mL overnight. As such, the drain will be kept in place. He is using incentive spirometer. Pain is under good control. Adequate functionality in his lower extremities. The plan was to transfer this patient out of the intensive care unit. He ended up staying as an overflow. Ultimately plan is to go home. Her going to work with spine surgery regarding his discharge planning. Medication will be kept unchanged for now. Objective - Vital Signs Vital signs: Vital Signs Temp 97.9 F 01/27/21 01:59 Pulse 104 H 01/27/21 01:59 Resp 17 01/27/21 01:59 BP 124/91 01/27/21 01:59 Pulse Ox 93 L 01/27/21 01:59 Intake & Output 01/26/21 01/27/21 01/27/21 18:59 06:59 18:59 Output Total 750 1250 100 Balance -750 -1250 -100 Weight 60.7 kg Output: Drainage 50 100 Lower Back 50 100 Urine 700 1250 Other: Voiding Method Urinal Urinal # Voids 0 2 ABP, PAP, CO, CI - Last Documented Arterial Blood Pressure 101/87 - Exam GENERAL EXAM: 60-year-old white male, on RA HEAD: Normocephalic/atraumatic. EYES: Normal reaction of pupils, equal size. Conjunctiva pink, sclera white. NOSE: Clear with pink turbinates. THROAT: No erythema or exudates. NECK: No masses, no JVD, no thyroid enlargement, no adenopathy. CHEST: No chest wall deformity. Symmetrical expansion. LUNGS: Equal air entry with no crackles, wheeze, rhonchi or dullness. CVS: Regular rate and rhythm, normal S1 and S2, no gallops, no murmurs, no rubs ABDOMEN: Soft, nontender. No hepatosplenomegaly, normal bowel sounds, no guarding or rigidity. EXTREMITIES: No clubbing, no edema, no cyanosis, 2+ pulses and upper and lower extremities. MUSCULOSKELETAL: Muscle strength and tone normal. SPINE: No scoliosis or deformity. back incision rhythm with a surgical dressing, clean dry and intact 1 GALO drains in the lateral spine, there is interval removal of the superior GALO drain. The remaining GALO drain is compressed and draining small amount of sangineous output SKIN: No rashes CENTRAL NERVOUS SYSTEM: Awake and alert, oriented 3. No focal deficits, tone is normal in all 4 extremities. - Labs CBC & Chem 7: 01/25/21 04:08 01/25/21 04:08 Assessment and Plan Plan: #1. Routine postoperative ventilator management post L2 to L5 lateral interbody fusion, second stage T10 to pelvis decompression fusion with L5-S1 interbody fusion, and was extubated on postoperative day #4, on 01/23/2021. Tolerating Extubation quite well so far, remains on room air oxygen #2. Lumbar and sacral spine stenosis, spondylolisthesis and spondylolysis, status post L2 to L5 lateral interbody fusion, second stage T10 to pelvis decompression fusion with L5-S1 interbody fusion, on 01/22/2021 #3. Hypertension #4. Hypercholesterolemia #5. COPD, severity of which is unknown to us at this time, not oxygen dependent at baseline #6. Chronic nicotine dependence, in remission for last 2 months #7. Osteoarthritis Plan: Patient has remained stable Currently on room air oxygen Encourage deep breathing and coughing Encourage incentive spirometry use Maintain pain control GI and DVT prophylaxis per surgery Tolerating oral intake Activity as tolerated Management of GALO drains per spine surgery, output has been noted We'll continue to follow. The patient should be transferring out of the intensive care unit today. Home once cleared by spine surgery
[2021-01-27] MEDS: PANTOPRAZOLE 40 MG TABLET PO SCH (09:55)
--- NOTE | 2021-01-27 11:05 | P.PN ---
Subjective Progress Note Date: 01/27/21 Patient seen and examined this morning. He is doing fairly well he has been up with nursing walking around. He denies any fevers chills shortness of breath or chest pain overnight. He states some pain in his back and that the drain is bothering him and so we will call us out today. No bowel or bladder issues no peroneal numbness or tingling. Objective - Vital Signs Vital signs: Vital Signs Temp 97.4 F L 01/27/21 08:00 Pulse 111 H 01/27/21 08:00 Resp 16 01/27/21 08:00 BP 136/90 01/27/21 08:00 Pulse Ox 94 L 01/27/21 08:00 Intake & Output 01/26/21 01/27/21 01/27/21 18:59 06:59 18:59 Output Total 750 1250 100 Balance -750 -1250 -100 Weight 60.7 kg Output: Drainage 50 100 Lower Back 50 100 Urine 700 1250 Other: Voiding Method Urinal Urinal # Voids 0 2 ABP, PAP, CO, CI - Last Documented Arterial Blood Pressure 101/87 - Exam Patient is alert and oriented 3 appears well-nourished well-hydrated is in no acute distress. They does not appear septic. On exam the patient has no tenderness to palpation of her thoracic or lumbar spine. There is no edema or ballottement sign. Lower extremities with 4+ out of 5 strength in all major muscle groups no focal deficits improving Upper extremities show 5/5 strength in all major muscle groups. There is FROM that is painless of the b/l UE and LE in all major joints. They are intact to light touch sensation in L2 to S1 nerve distribution. Patient has palpable dorsalis pedis was posterior tibial pulses. Compartments are soft and compressible. Patient shows a negative Homans, Hirsch's, negative Babinski's negative clonus bilaterally. negative straight leg raise bilaterally. No tensioning signs. Cranial nerves II through XII are grossly intact. Overall alignment is well-maintained in the sagittal coronal planes. Incisions are clean and dry Second drain removed today. Incision is clean dry and intact no erythema or ecchymosis or edema. - EENT Eyes: Present: PERRLA - Labs CBC & Chem 7: 01/25/21 04:08 01/25/21 04:08 Assessment and Plan Assessment: 60-year-old male postoperative day 5 two-stage procedure lateral interbody fusion L2 to L5 with second stage T10 to pelvis decompression fusion with L5-S1 interbody fusion 1. L5-S1 grade 1-2 spondylolisthesis and L5-S1 spondylolysis 2. L1 to S1 spondylosis with stenosis 3. Right lower extremity radiculopathy with weakness 4. Lumbar degenerative scoliosis with PI/LL mismatch and deformity 5. Neurogenic claudication Plan: -Appreciate job service consultant and team management. -Appreciate ICU management -Activity: Ambulate QID, OOB all meals, up and about, limit lifting bending twisting to less than 5 lbs. Use walker or cane if needed for stability. -Daily PT/OT, increase ambulation strength and balance. -We will assess the need for a brace when patient gets up -Pain control: Titrated to vitals, patient has SALES PLANNING COORDINATOR available -Meds: reviewed -GI ppx: senna, Miralax -DC zavala when up and about, bedside commode if needed -DVT PPX: OK to restart Heparin tonight -Hygiene: Shower today. Maintain dressing clean and dry. Meticulous cleaning after BMs away from incision site -Drains: Maintain for now. Record output -Encourage IS 10x/hr -Noncontrasted CT of the thoracolumbar spine shows good reduction of deformity with good placement of screws and hardware with decompression. Other postsurgical changes noted no complicating processes -Stable from orthopedic standpoint for transfer out of ICU -Dispo: Plan on home tomorrow with home health care
[2021-01-27 11:22] LABS: Basophils % (A) 0 %; Eosinophils # (A) 0.3 k/uL (0-0.7); Eosinophils % (A) 2 %; HCT 31.8 % (39.0-53.0); HGB 10.1 gm/dL (13.0-17.5); Lymphocytes # (A) 1.2 k/uL (1.0-4.8); Lymphocytes % (A) 12 %; MCH 32.5 pg (25.0-35.0); MCHC 31.8 g/dL (31.0-37.0); MCV 102.3 fL (80.0-100.0); Macrocytosis Slight; Monocytes # (A) 0.9 k/uL (0-1.0); Monocytes % (A) 9 %; Neutrophils # (A) 7.4 k/uL (1.3-7.7); Neutrophils % (A) 73 %; Platelet Count 312 k/uL (150-450); RBC 3.11 m/uL (4.30-5.90); RDW 12.5 % (11.5-15.5); WBC 10.1 k/uL (3.8-10.6)
[2021-01-27 11:31] LABS: African American GFR (CKD) >90 (>60 ml/min/1.73 sqM); Anion Gap 8 mmol/L; Blood Urea Nitrogen 11 mg/dL (9-20); Carbon Dioxide 27 mmol/L (22-30); Chloride 99 mmol/L (98-107); Glucose 113 mg/dL (74-99); Non-African American GFR(CKD) >90 (>60 ml/min/1.73 sqM); Sodium 134 mmol/L (137-145)
[2021-01-27] MEDS ORDERED: FERROUS SULFATE 325 MG TAB PO SCH (12:30)
[2021-01-27] MEDS: CYCLOBENZAPRINE 10 MG TAB PO SCH ×2 (15:53→21:26)
[2021-01-27 18:01] LABS: Glucose,Whole Blood 110 mg/dL (75-99)
[2021-01-28] MEDS: ACETAMINOPHEN TAB 500 MG TAB PO SCH ×2 (01:05→09:02)
[2021-01-28 05:19] LABS: Basophils # (A) 0.1 k/uL (0-0.2); Basophils % (A) 0 %; Eosinophils # (A) 0.1 k/uL (0-0.7); Eosinophils % (A) 1 %; HCT 35.2 % (39.0-53.0); HGB 11.3 gm/dL (13.0-17.5); Lymphocytes # (A) 1.6 k/uL (1.0-4.8); Lymphocytes % (A) 13 %; MCH 32.6 pg (25.0-35.0); MCV 101.7 fL (80.0-100.0); Mean Platelet Volume 7.9; Monocytes # (A) 1.1 k/uL (0-1.0); Monocytes % (A) 9 %; Neutrophils % (A) 74 %; Platelet Count 359 k/uL (150-450); RBC 3.46 m/uL (4.30-5.90); RDW 12.6 % (11.5-15.5); WBC 12.2 k/uL (3.8-10.6)
[2021-01-28 05:54] LABS: ALT 65 U/L (4-49); AST 103 U/L (17-59); African American GFR (CKD) >90 (>60 ml/min/1.73 sqM); Albumin 3.4 g/dL (3.5-5.0); Alkaline Phosphatase 125 U/L (38-126); Anion Gap 12 mmol/L; Blood Urea Nitrogen 11 mg/dL (9-20); Calcium 9.5 mg/dL (8.4-10.2); Carbon Dioxide 23 mmol/L (22-30); Chloride 99 mmol/L (98-107); Glucose 99 mg/dL (74-99); Non-African American GFR(CKD) >90 (>60 ml/min/1.73 sqM); Potassium 4.6 mmol/L (3.5-5.1); Sodium 134 mmol/L (137-145); Total Bilirubin 0.5 mg/dL (0.2-1.3); Total Protein 6.1 g/dL (6.3-8.2)
[2021-01-28] MEDS: PANTOPRAZOLE 40 MG TABLET PO SCH (07:09)
[2021-01-28] MEDS: IPRATROPIUM-ALBUTEROL 3 ML NEB INHALATION SCH ×2 (08:44→12:08)
[2021-01-28] MEDS: HEPARIN SODIUM,PORCINE/PF 5,000 UNIT/0.5 ML SYRINGE SQ SCH (09:02)
[2021-01-28] MEDS: CYCLOBENZAPRINE 10 MG TAB PO SCH (09:03)
[2021-01-28 10:23] VITALS: BP 144/96; PULSE 89; RESP 14; TEMP 98.1
--- NOTE | 2021-01-28 12:30 | P.PN ---
Subjective Progress Note Date: 01/28/21 Principal diagnosis: 1. 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 L5-S1 spondylolysis with spondylolisthesis Grade I-II 3. Lumbar Deformity 4. b/l LE radiculopathy 5. b/l LE weakness 6. Neurogenic claudication Patient was seen at bedside this morning resting semirecumbent in bed. Patient states he got up and sat in chair yesterday. Patient says he is a bit cold this morning. Patient says he had a bowel movement yesterday. Patient says he is ready to go home today. Patient says he has used incentive spirometer. Patient denies chest pain, fever, shortness breath, nausea, vomiting, change in vision, loss of bowel/bladder control. Objective - Vital Signs Vital signs: Vital Signs Temp 98.1 F 01/28/21 08:00 Pulse 89 01/28/21 08:00 Resp 14 01/28/21 08:00 BP 144/96 01/28/21 08:00 Pulse Ox 99 01/28/21 08:00 Intake & Output 01/27/21 01/28/21 01/28/21 18:59 06:59 18:59 Intake Total 100 Output Total 100 Balance 0 Weight 60 kg Intake: IV 100 ceFAZolin 2 gm In Sodium 100 Chloride 0.9% 50 ml @ 100 mls/hr IVPB Q8H [facility] Rx#: [id number] Output: Drainage 100 Lower Back 100 Other: Voiding Method Urinal Toilet Toilet # Voids 2 2 # Bowel Movements 1 1 ABP, PAP, CO, CI - Last Documented Arterial Blood Pressure 101/87 - Exam Spine: Optifoam dressing in place. Incision is clean, intact. Incision negative for any purulence, fluctuance Inspection: [place] are intact and well aligned. There is no areas of purulence along incision. No open ulcers/wounds. Sensation: Sensation is equal, symmetric, bilaterally intact throughout Palpation: Minimal tenderness to palpation throughout spine. Range of motion: Patient is able to wiggle toes bilaterally while lying in bed. Patient is able to lift legs bilaterally off the bed. Neurovascular status: Refill under 3 seconds bilaterally. DP pulse intact, 2+ bilaterally. - Labs CBC & Chem 7: 01/28/21 04:38 01/28/21 04:38 Labs: Abnormal Lab Results - Last 24 Hours (Table) 01/27/21 01/28/21 01/28/21 Range/Units 18:00 04:38 04:38 WBC 12.2 H (3.8-10.6) k/uL RBC 3.46 L (4.30-5.90) m/uL Hgb 11.3 L (13.0-17.5) gm/dL Hct 35.2 L (39.0-53.0) % MCV 101.7 H (80.0-100.0) fL Neutrophils # 9.0 H (1.3-7.7) k/uL Monocytes # 1.1 H (0-1.0) k/uL Sodium 134 L (137-145) mmol/L POC Glucose (mg/dL) 110 H (75-99) mg/dL AST 103 H (17-59) U/L ALT 65 H (4-49) U/L Total Protein 6.1 L (6.3-8.2) g/dL Albumin 3.4 L (3.5-5.0) g/dL Assessment and Plan Assessment: 60-year-old male postoperative day 6 two-stage procedure lateral interbody fusion L2 to L5 with second stage T10 to pelvis decompression fusion with L5-S1 interbody fusion Plan: 1. Lumbar degenerative scoliosis with PI:LL mismatch; L5-S1 spondylolysis with spondylolisthesis Grade I-II; Lumbar Deformity; b/l LE radiculopathy; b/l LE weakness; Neurogenic claudication - surgery performed Thursday01/22/2021 - patient stable at bedside this morning. Plan discharge home today with healths services 2. Appreciate medical management; appreciate pulmonology management 3. Pain management - goign home with Gabapentin, Oxycodone 5mg/325mg, flexeril 4. DVT prophylaxis - heparin 5. GI prophylaxis - protonix; senna; going home with colace and senna 6. Encourage incentive spirometer use 7. PT/OT - weightbearing as tolerated with walker 8. Discharge planning - discharge home today with health services Time with Patient: Less than 30
--- NOTE | 2021-01-28 12:37 | P.DS ---
Providers Date of admission: 01/22/21 19:31 Expected date of discharge: 01/28/21 Attending physician: Cody Rojas DO Consults: 01/22/21 19:50 Consult Physician Routine Consulting Provider: Molly Morales Consult Reason/Comments: medical management Do you want consulting provider notified?: Yes 01/23/21 08:31 Consult Physician Routine Consulting Provider: Reggie Bailey Consult Reason/Comments: ICU/vent management Do you want consulting provider notified?: Already Contacted Primary care physician: Arnaud Cardenas Hospital Course: Date of admission: 01/22/2021 Date of discharge: 01/28/2021 Admission diagnosis: 1. 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 L5-S1 spondylolysis with spondylolisthesis Grade I-II 3. Lumbar Deformity 4. b/l LE radiculopathy 5. b/l LE weakness 6. Neurogenic claudicatio Discharge diagnosis: Same Attending physician: Dr. Rojas Surgical procedures: Part I: 1. L2-3 lateral interbody fusion 2. L3-4 Lateral interbody fusion 3. L4-5 lateral interbody fusion 4. Intraoperative interpretation of flouroscopic images <1 hr Part II: 1. Posterior lateral instrumented [id number] fusion 2. Segmental instrumentation [id number] 3. Pelvic fixation 4. L4-S1 bilateral decompressive laminectomy, facetectomy and foraminotomy 5. L5-S1 posterior interbody fusion 6. L5-S1 intradiscal osteotomy (3 column osteotomy for deformity correction) 7. Use of intraoperative Mobitto 3d navigation for the placement of pedicle screws and decompression 8. Intraoperative interpretation of flouroscopic images <1 hr Brief history: Patient is a 60-year-old male with a history of with lumbar degenerative scoliosis; L5-S1 spondylosis with spondylolisthesis grade 12; lumbar deformity; bilateral lower extremity radiculopathy; bilateral lower extremity weakness; neurogenic claudication. At this point patient has failed conservative treatment measures and has opted to proceed with a elective see procedure. Hospital course: Details of patient's surgery can be found in operative report. Patient tolerated the procedure well and was subsequently transported to orthopedic floor. Patient's orthopeidc and medical care was provided daily. Patient had daily laboratory tests performed for evaluation of overall blood counts. Patient had daily physical therapy to include strengthening range of motion as well as education with walker ambulation. Patient was treated with heparin for their postoperative DVT prophylaxis during their inpatient stay. Patient was noted to have a relatively uneventful postoperative course. Patient reported satisfactory pain control with oral pain medications by postoperative day 6. Patient showed satisfactory progress with physical therapy. Patient moved steadily through the program and had no difficulty meeting the goals by postoperative day 6. Given patient's otherwise satisfactory course and having met physical therapy goals, plan is to discharge patient home with health services on postoperative day 6. Discharge condition/disposition: Patient will be discharged home with health services in stable condition. Discharge medications: Instructions are given on resumption of patient's normal daily medications per primary care recommendation, in addition patient will be prescribed oxycodone 5 mg/325 mg; senna; Colace; gabapentin; Flexeril. Spine Discharge and Recovery Instructions Date of Surgery: 01/22/2021 Medications: See medication list All medication refills should be obtained through your primary care doctor or your clinic spine surgeon. Please discuss prescription refills at your follow up appointment. Do not call the hospital for medication refills. Dressing: Leave your dressing in place for a total of 5 days post operatively. Then you may remove your dressing and leave open to air. Keep the area clean and if not able to keep area clean, then cover with sterile gauze and tape. Showering: You may shower 3 days after your procedure allowing soap and water to run over incision. Do not scrub. Do not soak. Blot dry. Follow up: Please confirm a follow up appointment with your surgeon 3 weeks post operatively. Please make an appointment to follow up with your PCP in 1-2 weeks after surgery for evaluation 3 phase, 3-week plan POST OP WEEKS 1-3 1. Lifting/carrying/pushing/pulling limited to less than 5 pounds. 2. Do not sit for longer than 15 minutes at one time. Get up and walk around. Prolonged sitting is NOT advised. If you lay down, see if you can tolerate laying down on you front (belly side) 3. Walk for periods of 15 minutes = 1 mile but no longer; do it multiple times times each day. 4. Ice your low back after activity. POST OP WEEKS 3-6 1. Lifting limited to less than 20 pounds. 2. Do not sit for longer than 30 minutes at a time. Frequently change positions. Use a sit-to stand workstation or take frequent breaks from sitting if you have returned to work. 3. Walk for 30 minutes each day. If possible, do these three or more times a day POST OP WEEKS 6+ At your 6-week appointment we will give you a physical therapy referral to focus on a core stabilization and strengthening program. You should also work on leg & buttock strengthening, hamstring & quadriceps stretching, and continue a low impact aerobic activity program such as swimming, walking, or riding a stationary bicycle. During the initial 6 weeks after your surgery, you are at the highest risk of re-injuring your spine. You should generally avoid BLTs (bending, lifting and twisting combination motions) and follow the above guidelines to reduce the chance of reinjury. You can anticipate post op appointments in our office at approximately 3 weeks and 6 weeks after your surgery. INCISION CARE: If your incision is not draining you do NOT need to cover it with a dressing. Keep your incision clean, dry and intact. In most cases, we apply skin glue, sandra or sutures to the incision at the time of surgery. This will be like a crust or have the appearance of a scab and will fall off in time on its own. The stitches or sandra need to be removed at 3 weeks post op appointment. You may begin to shower 3 days after surgery (this allows the glue to ricardo well). However, please avoid scrubbing the incision site or peeling off any of the skin glue. This will ensure optimal healing of your incision. Also, during this time avoid soaking the incision area in water - this includes swimming pools, hot tubs or baths. No ointments, lotions or oils on the incision until your surgeon allows. Leave sandra, sutures or glue in place. Neurological dysfunction that comes on suddenly can also be a sign of a stroke. Below some common symptoms of a stroke are listed: B - balance difficulty such as sudden onset walking or leaning to one side - NEW E - eye problem such as sudden double vision or trouble seeing on one side - NEW F - Facial weakness or numbness on one side - NEW A - Arm or leg weakness or numbness on one side - NEW S - Slurred speech or difficulty with word finding - NEW T - Time is BRAIN! Call 911 as soon as you recognize these symptoms Diet: Consume a regular diet rich in vegetables and lean protein such as chicken or fish. You should consume in a ratio of approximately 20% fats|40% carbohydrates|40%protein. Vegetables, sweet potatoes, brown rice or quinoa are examples of good carbohydrates. Chips, white bread, cookies and sweets/sugar are examples of bad carbohydrates. Limit your bad carbs, go wild with good carbs. "Life's Simple 7" Guidelines as per [place] [employer] These will help you reclaim your life after surgery and signal maintainer helper in your recovery, keeping in mind your restrictions. (1) Get Active. Physical activity can help people lose weight, control high blood pressure and cholesterol, feel emotionally better, and sleep better. (2) Control Cholesterol. Avoid a diet high in saturated fat, trans fat, & cholesterol. Limit whole milk & cream, ice cream, butter, egg yolks, processed meats (like sausage and hot dogs), and fatty meats. Choose healthy foods that are low in saturated fat, trans fat and cholesterol which include: Fruits and vegetables, fiber rich grain products (like whole grain pasta and brown rice), lean meat such as chicken, fish, nuts, seeds, and legumes. (3) Eat Better. Eat small portions. Shop at the grocery with a list and do not stray from it. Tips for a healthy diet include: Limit sodium intake to less than 1500mg daily, avoid prepackaged, processed, and fast foods, choose a diet rich in fruits, vegetables, and whole grain, high fiber foods, and limit saturated & cholesterol in your diet. (4) Manage Blood Pressure. If you have high blood pressure, you should have a cuff at home so that you can check your blood pressure regularly. Be sure you have a good cuff. An arm one is generally better than a wrist one. Bring the cuff to a doctor's appointment to validate that the measurements that your cuff are taking are accurate. Take your blood pressure twice daily when you are sitting down and relaxing. Record the numbers in a log and bring this log with you to your doctors' appointments. (5) Lose Weight if your BMI is above 25. A healthy BMI is between 19-25. To calculate Your BMI, you may use a Standard BMI Calculator on the NIH BMI website: <www.nhlbi.nih.gov/guidelines/obesity/BMI/bmicalc.htm>. Weigh oneself daily. If you are overweight, set a goal to lose weight. A pound a week loss if needed is a good target. (6) Reduce Blood Sugar. Limit foods and liquids with "added sugars." (Added sugars include sucrose, fructose, glucose, maltose, dextrose, high fructose corn syrup, corn syrup, concentrated fruit juice and honey). (7) Stop Smoking. If you smoke, quitting smoking is one of the best things that you can do for your health. Smoking increases your risk of heart attack, stroke, and peripheral vascular disease, which is a build-up of plaque in your arteries. Please discard all the cigarettes and lighters in your house. Have a plan for what you will do when you have the urge to smoke. Direct and second- hand smoke shortens your life as well as the lives of your family, friends and others around you. For your health and the health of those around you, please consider quitting! Proper Bending Body Mechanics: Maintain a wide stance with one foot slightly in front of the other. Keep your back straight. Bend utilizing the strength in your hips and knees. Do not bend at the waist. Maintain the lifted object at your waist-level close to your body. Avoid lifting weight that causes immediately pain or pain anywhere in the body afterwards. Smoking/Nicotine If there was ever one thing that you could do to increase your overall health, decrease your risk of cardiovascular problems by about 39% the second you make the choice, it is to STOP SMOKING. Your body's most instant gratification is the second you stop smoking. We have all heard the studies, read the articles but it is true, smoking is extremely bad for your overall health, and moreover it is detrimental to your bone health. Nicotine, IN ANY FORM, kills bone cells, prevents your body from healing fractures, and significantly prolongs healing after surgery. In spine surgery specifically, it increases your risk of not healing your bones to create a fusion and increases your risk of having a revision surgery due to this up to 60%. I know it is hard. I know it feels impossible. But there are ways. Take control of your life. We are here to help you through it. And when you are ready, ask us and we can direct you to help if you desire. Use the START Plan to Quit Smoking (please visit the [employer] website listed below for more information): S = Set a quit date. Choose a date within the next 2 weeks, so you have enough time to prepare w ithout losing your motivation to quit. If you mainly smoke at work, quit on the weekend, so you have a few days to adjust to the change. T = Tell family, friends, and co-workers that you plan to quit. Let your friends and family in on your plan to quit smoking and tell them you need their support and encouragement to stop. Look for a quit aishwarya who wants to stop smoking as well. You can help each other get through the rough times. A = Anticipate and plan for the challenges you'll face while quitting. Most people who begin smoking again do so within the first 3 months. You can help yourself make it through by preparing ahead for common challenges, such as nicotine withdrawal and cigarette cravings. R = Remove cigarettes and other tobacco products from your home, car, and work. Throw away all your cigarettes (no emergency pack!), lighters, ashtrays, and matches. Wash your clothes and freshen up anything that smells like smoke. Shampoo your car, clean your drapes and carpet, and steam your furniture. T = Talk to your doctor about getting help to quit. Your doctor can prescribe medication to help with withdrawal and suggest other alternatives. If you can't see a doctor, you can get many products over the counter at your local pharmacy or grocery store, including the nicotine patch, nicotine lozenges, and nicotine gum. Resources for Quitting Smoking: <https://www.[place].gov/documents/[facility]/Quit_Tobacco_Resources_for_patients_313 480_7.pdf> Supplementation: Take recommended dosages of Vitamin D and Calcium to help fortify your bones and help them to heal. See your health maintenance packet for dosages and recommended levels. DVT/VTE prophylaxis: You will be given compression stockings from the hospital. Wear these daily for the first two weeks after surgery. You may take them off at night. You may be prescribed a medication to help thin your blood. Take this as directed. If you are not prescribed this medication, early and frequent ambulation has been shown to be the best prophylaxis to deep vein thrombosis and sequelae related to this event. Assessment: 1. 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 L5-S1 spondylolysis with spondylolisthesis Grade I-II 3. Lumbar Deformity 4. b/l LE radiculopathy 5. b/l LE weakness 6. Neurogenic claudicatio Procedures: Part I: 1. L2-3 lateral interbody fusion 2. L3-4 Lateral interbody fusion 3. L4-5 lateral interbody fusion 4. Intraoperative interpretation of flouroscopic images <1 hr Part II: 1. Posterior lateral instrumented [id number] fusion 2. Segmental instrumentation [id number] 3. Pelvic fixation 4. L4-S1 bilateral decompressive laminectomy, facetectomy and foraminotomy 5. L5-S1 posterior interbody fusion 6. L5-S1 intradiscal osteotomy (3 column osteotomy for deformity correction) 7. Use of intraoperative Mobitto 3d navigation for the placement of pedicle screws and decompression 8. Intraoperative interpretation of flouroscopic images <1 hr Patient Condition at Discharge: Good Plan - Discharge Summary Discharge Rx Participant: Yes New Discharge Prescriptions: New cefaDROXiL [Duricef] 500 mg PO Q12HR #14 cap Gabapentin 300 mg PO TID #90 cap oxyCODONE HCL/ACETAMINOPHEN [Percocet 5-325 mg] 1 - 2 tab PO Q4HR PRN #56 tab PRN Reason: Pain Sennosides/Docusate Sodium [Senna Plus 8.6-50 mg Softgel] 1 each PO BID PRN #30 PRN Reason: Constipation Docusate [Colace] 100 mg PO DAILY PRN #30 PRN Reason: Constipation Cyclobenzaprine [Flexeril] 10 mg PO TID PRN #40 tab PRN Reason: Spasms No Action Meloxicam [Mobic] 7.5 mg PO DAILY Discharge Medication List Meloxicam [Mobic] 7.5 mg PO DAILY 11/02/20 [History] Cyclobenzaprine [Flexeril] 10 mg PO TID PRN #40 tab 01/28/21 [Rx] Docusate [Colace] 100 mg PO DAILY PRN #30 01/28/21 [Rx] Gabapentin 300 mg PO TID #90 cap 01/28/21 [Rx] Sennosides/Docusate Sodium [Senna Plus 8.6-50 mg Softgel] 1 each PO BID PRN #30 01/28/21 [Rx] cefaDROXiL [Duricef] 500 mg PO Q12HR #14 cap 01/28/21 [Rx] oxyCODONE HCL/ACETAMINOPHEN [Percocet 5-325 mg] 1 - 2 tab PO Q4HR PRN #56 tab 01/28/21 [Rx] Follow up Appointment(s)/Referral(s): Anraud Cardenas MD [Primary Care Provider] - 1 Week [facility], [NON-STAFF] - 1-2 Days Cody Rojas DO [Doctor of Osteopathic Medicine] - 10 Days Patient Instructions/Handouts: Posterior Lumbar Interbody Fusion (DC), Lumbar Spinal Fusion (DC), Lumbar Spinal Fusion (GEN) Activity/Diet/Wound Care/Special Instructions: Spine Discharge and Recovery Instructions Date of Surgery: 01/22/2021 Diagnosis: Lumbar degenerative scoliosis Procedure: Lateral lumbar interbody fusion with posterior T10 to pelvis fusion Medications: See list All medication refills should be obtained through your primary care doctor or your clinic spine surgeon. Please discuss prescription refills at your follow up appointment. Do not call the hospital for medication refills. Dressing: Leave your dressing in place for a total of 3 days post operatively. Then you may remove your dressing and leave open to air. Keep the area clean and if not able to keep area clean, then cover with sterile gauze and tape. Showering: You may shower 3 days after your procedure allowing soap and water to run over incision. Do not scrub. Do not soak. Blot dry. Brace: Wear brace when up and about for support. Do not need to wear in bed or chair. Do not wear in shower. Follow up: Please confirm a follow up appointment with your surgeon 2 weeks post operatively. Please make an appointment to follow up with your PCP in 1-2 weeks after surgery for evaluation 3 phase, 3-week plan POST OP WEEKS 1-3 1. Lifting/carrying/pushing/pulling limited to less than 5 pounds. 2. Do not sit for longer than 15 minutes at one time. Get up and walk around. Prolonged sitting is NOT advised. If you lay down, see if you can tolerate laying down on you front (belly side) 3. Walk for periods of 15 minutes = 1 mile but no longer; do it multiple times times each day. 4.Ice your low back after activity. POST OP WEEKS 3-6 1. Lifting limited to less than 20 pounds. 2. Do not sit for longer than 30 minutes at a time. Frequently change positions. Use a sit-to stand workstation or take frequent breaks from sitting if you have returned to work. 3. Walk for 30 minutes each day. If possible, do these three or more times a day POST OP WEEKS 6+ At your 6-week appointment we will give you a physical therapy referral to focus on a core stabilization and strengthening program. You should also work on leg & buttock strengthening, hamstring & quadriceps stretching, and continue a low impact aerobic activity program such as swimming, walking, or riding a stationary bicycle. During the initial 6 weeks after your surgery, you are at the highest risk of re-injuring your spine. You should generally avoid BLTs (bending, lifting and twisting combination motions) and follow the above guidelines to reduce the chance of reinjury. You can anticipate post op appointments in our office at approximately 3 weeks and 6 weeks after your surgery. INCISION CARE: If your incision is not draining you do NOT need to cover it with a dressing. Keep your incision clean, dry and intact. In most cases, we apply skin glue, sandra or sutures to the incision at the time of surgery. This will be like a crust or have the appearance of a scab and will fall off in time on its own. The stitches or sandra need to be removed at 3 weeks post op appointment. You may begin to shower 3 days after surgery (this allows the glue to ricardo well). However, please avoid scrubbing the incision site or peeling off any of the skin glue. This will ensure optimal healing of your incision. Also, during this time avoid soaking the incision area in water - this includes swimming pools, hot tubs or baths. No ointments, lotions or oils on the incision until your surgeon allows. Leave sandra, sutures or glue in place. Neurological dysfunction that comes on suddenly can also be a sign of a stroke. Below some common symptoms of a stroke are listed: B - balance difficulty such as sudden onset walking or leaning to one side - NEW E - eye problem such as sudden double vision or trouble seeing on one side - NEW F - Facial weakness or numbness on one side - NEW A - Arm or leg weakness or numbness on one side - NEW S - Slurred speech or difficulty with word finding - NEW T - Time is BRAIN! Call 911 as soon as you recognize these symptoms Diet: Consume a regular diet rich in vegetables and lean protein such as chicken or fish. You should consume in a ratio of approximately 20% fats|40% carbohydrates|40%protein. Vegetables, sweet potatoes, brown rice or quinoa are examples of good carbohydrates. Chips, white bread, cookies and sweets/sugar are examples of bad carbohydrates. Limit your bad carbs, go wild with good carbs. "Life's Simple 7" Guidelines as per [place] [employer] These will help you reclaim your life after surgery and signal maintainer helper in your recovery, keeping in mind your restrictions. (1) Get Active. Physical activity can help people lose weight, control high blood pressure and cholesterol, feel emotionally better, and sleep better. (2) Control Cholesterol. Avoid a diet high in saturated fat, trans fat, & cholesterol. Limit whole milk & cream, ice cream, butter, egg yolks, processed meats (like sausage and hot dogs), and fatty meats. Choose healthy foods that are low in saturated fat, trans fat and cholesterol which include: Fruits and vegetables, fiber rich grain products (like whole grain pasta and brown rice), lean meat such as chicken, fish, nuts, seeds, and legumes. (3) Eat Better. Eat small portions. Shop at the grocery with a list and do not stray from it. Tips for a healthy diet include: Limit sodium intake to less than 1500mg daily, avoid prepackaged, processed, and fast foods, choose a diet rich in fruits, vegetables, and whole grain, high fiber foods, and limit saturated & cholesterol in your diet. (4) Manage Blood Pressure. If you have high blood pressure, you should have a cuff at home so that you can check your blood pressure regularly. Be sure you have a good cuff. An arm one is generally better than a wrist one. Bring the cuff to a doctor's appointment to validate that the measurements that your cuff are taking are accurate. Take your blood pressure twice daily when you are sitting down and relaxing. Record the numbers in a log and bring this log with y ou to your doctors' appointments. (5) Lose Weight if your BMI is above 25. A healthy BMI is between 19-25. To calculate Your BMI, you may use a Standard BMI Calculator on the NIH BMI website: <www.nhlbi.nih.gov/guidelines/obesity/BMI/bmicalc.htm>. Weigh oneself daily. If you are overweight, set a goal to lose weight. A pound a week loss if needed is a good target. (6) Reduce Blood Sugar. Limit foods and liquids with "added sugars." (Added sugars include sucrose, fructose, glucose, maltose, dextrose, high fructose corn syrup, corn syrup, concentrated fruit juice and honey). (7) Stop Smoking. If you smoke, quitting smoking is one of the best things that you can do for your health. Smoking increases your risk of heart attack, stroke, and peripheral vascular disease, which is a build-up of plaque in your arteries. Please discard all the cigarettes and lighters in your house. Have a plan for what you will do when you have the urge to smoke. Direct and second- hand smoke shortens your life as well as the lives of your family, friends and others around you. For your health and the health of those around you, please consider quitting! Proper Bending Body Mechanics: Maintain a wide stance with one foot slightly in front of the other. Keep your back straight. Bend utilizing the strength in your hips and knees. Do not bend at the waist. Maintain the lifted object at your waist-level close to your body. Avoid lifting weight that causes immediately pain or pain anywhere in the body afterwards. Smoking/Nicotine If there was ever one thing that you could do to increase your overall health, decrease your risk of cardiovascular problems by about 39% the second you make the choice, it is to STOP SMOKING. Your body's most instant gratification is the second you stop smoking. We have all heard the studies, read the articles but it is true, smoking is extremely bad for your overall health, and moreover it is detrimental to your bone health. Nicotine, IN ANY FORM, kills bone cells, prevents your body from healing fractures, and significantly prolongs healing after surgery. In spine surgery specifically, it increases your risk of not healing your bones to create a fusion and increases your risk of having a revision surgery due to this up to 60%. I know it is hard. I know it feels impossible. But there are ways. Take control of your life. We are here to help you through it. And when you are ready, ask us and we can direct you to help if you desire. Use the START Plan to Quit Smoking (please visit the Helpguide.org website listed below for more information): S = Set a quit date. Choose a date within the next 2 weeks, so you have enough time to prepare without losing your motivation to quit. If you mainly smoke at work, quit on the weekend, so you have a few days to adjust to the change. T = Tell family, friends, and co-workers that you plan to quit. Let your friends and family in on your plan to quit smoking and tell them you need their support and encouragement to stop. Look for a quit aishwarya who wants to stop smoking as well. You can help each other get through the rough times. A = Anticipate and plan for the challenges you'll face while quitting. Most people who begin smoking again do so within the first 3 months. You can help yourself make it through by preparing ahead for common challenges, such as nicotine withdrawal and cigarette cravings. R = Remove cigarettes and other tobacco products from your home, car, and work. Throw away all your cigarettes (no emergency pack!), lighters, ashtrays, and matches. Wash your clothes and freshen up anything that smells like smoke. Shampoo your car, clean your drapes and carpet, and steam your furniture. T = Talk to your doctor about getting help to quit. Your doctor can prescribe medication to help with withdrawal and suggest other alternatives. If you can't see a doctor, you can get many products over the counter at your local pharmacy or grocery store, including the nicotine patch, nicotine lozenges, and nicotine gum. Resources for Quitting Smoking: <https://www.[place].gov/documents/[facility]/Quit_Tobacco_Resources_for_patients_313 480_7.pdf> Supplementation: Take recommended dosages of Vitamin D and Calcium to help fortify your bones and help them to heal. See your health maintenance packet for dosages and recommended levels. DVT/VTE prophylaxis: You will be given compression stockings from the hospital. Wear these daily for the first two weeks after surgery. You may take them off at night. You may be prescribed a medication to help thin your blood. Take this as directed. If you are not prescribed this medication, early and frequent ambulation has been shown to be the best prophylaxis to deep vein thrombosis and sequelae related to this event. Discharge Disposition: HOME WITH HOME HEALTH SERVICES
== END 2021-01-28 12:43 | disposition home health service (06) | DRG 454 ==
LOC: OR 05:33 → EDSTATUS 07:30 → 2SICU 19:31
PROVIDERS: ADMIT Orthopaedic Surgery; ATTEND Orthopaedic Surgery
PROC: 0SB40ZZ Excision of Lumbosacral Disc, Open Approach (ICD-10-PCS; principal; 2021-01-22 07:30)
PROC: 4A11X4G Monitoring of Peripheral Nervous Electrical Activity, Intraoperative, External Approach (ICD-10-PCS; principal; 2021-01-22 07:30)
PROC: 0SG30K1 Fusion of Lumbosacral Joint with Nonautologous Tissue Substitute, Posterior Approach, Posterior Column, Open Approach (ICD-10-PCS; principal; 2021-01-22 07:30)
PROC: 01NB0ZZ Release Lumbar Nerve, Open Approach (ICD-10-PCS; principal; 2021-01-22 07:30)
PROC: 0SG30KJ Fusion of Lumbosacral Joint with Nonautologous Tissue Substitute, Posterior Approach, Anterior Column, Open Approach (ICD-10-PCS; principal; 2021-01-22 07:30)
PROC: 0SB20ZZ Excision of Lumbar Vertebral Disc, Open Approach (ICD-10-PCS; principal; 2021-01-22 07:30)
PROC: 0SG10KJ Fusion of 2 or more Lumbar Vertebral Joints with Nonautologous Tissue Substitute, Posterior Approach, Anterior Column, Open Approach (ICD-10-PCS; principal; 2021-01-22 07:30)
PROC: 0RG70KJ Fusion of 2 to 7 Thoracic Vertebral Joints with Nonautologous Tissue Substitute, Posterior Approach, Anterior Column, Open Approach (ICD-10-PCS; principal; 2021-01-22 07:30)
PROC: 0SG30AJ Fusion of Lumbosacral Joint with Interbody Fusion Device, Posterior Approach, Anterior Column, Open Approach (ICD-10-PCS; principal; 2021-01-22 07:30)
PROC: 0SG10AJ Fusion of 2 or more Lumbar Vertebral Joints with Interbody Fusion Device, Posterior Approach, Anterior Column, Open Approach (ICD-10-PCS; principal; 2021-01-22 07:30)
DX: M41.86 Other forms of scoliosis, lumbar region (principal); D62 Acute posthemorrhagic anemia; M47.27 Other spondylosis with radiculopathy, lumbosacral region; J44.9 Chronic obstructive pulmonary disease, unspecified; M48.061 Spinal stenosis, lumbar region without neurogenic claudication; M48.07 Spinal stenosis, lumbosacral region; M43.17 Spondylolisthesis, lumbosacral region; G89.29 Other chronic pain; Z20.822 Contact with and (suspected) exposure to COVID-19; E78.00 Pure hypercholesterolemia, unspecified; I10 Essential (primary) hypertension; E78.5 Hyperlipidemia, unspecified; R09.02 Hypoxemia; H93.12 Tinnitus, left ear; M19.90 Unspecified osteoarthritis, unspecified site; F17.210 Nicotine dependence, cigarettes, uncomplicated; Z71.6 Tobacco abuse counseling; Z79.1 Long term (current) use of non-steroidal anti-inflammatories (NSAID); Z78.1 Physical restraint status; Z96.652 Presence of left artificial knee joint; Z87.19 Personal history of other diseases of the digestive system; Z87.39 Personal history of other diseases of the musculoskeletal system and connective tissue; Z87.2 Personal history of diseases of the skin and subcutaneous tissue; Z71.89 Other specified counseling; Z98.890 Other specified postprocedural states; Z88.5 Allergy status to narcotic agent; Z80.0 Family history of malignant neoplasm of digestive organs; Z80.8 Family history of malignant neoplasm of other organs or systems
CPT/HCPCS: 36415; 71045; 72100; 72131; 80048; 80051; 80053; 82728; 82805; 83540; 83550; 85025; 85027; 85610; 86850; 86891; 86900; 86901; 87070; 87205; 87635; 94002; 94003; 94640

== ENCOUNTER 2021-12-02 05:52 | Day surgery (SDC) | payer MEDICARE, OTHER ==
[~2021-12-02 05:52] MED LIST changes: -ACETAMINOPHEN TAB 500 MG TAB PO PRN; +ALPRAZolam 0.25 MG TAB PO PRN; +ALPRAZolam 0.5 MG TAB PO PRN; +ASPIRIN 325 MG TAB PO STA; +ATORVASTATIN 80 MG TAB PO STA; +HEPARIN SODIUM,PORCINE 10,000 UNIT in SODIUM CHLORIDE 0.9% 1,000 ML IRRIGATION PRN; +HEPARIN SODIUM,PORCINE 2,500 UNIT in SODIUM CHLORIDE 0.9% 250 ML IRRIGATION PRN; -MELOXICAM 7.5 MG TAB PO PRN; +NITROGLYCERIN SL TABS 0.4 MG TAB SUBLINGUAL PRN; -ONDANSETRON 4 MG/2 ML VIAL IVP PRN; -TRANEXAMIC ACID 1,000 MG in SODIUM CHLORIDE 0.9% 100 ML IVPB PRN
[2021-12-02] MEDS: SODIUM CHLORIDE 0.9% 1,000 ML in EMPTY BAG 1 BAG IV SCH ×2 (06:15→20:27)
[2021-12-02] MEDS ORDERED: ASPIRIN 81 MG ONE (06:16)
[2021-12-02 06:32] LABS: Basophils % (A) 0 %; Eosinophils # (A) 0.4 k/uL (0-0.7); Eosinophils % (A) 3 %; HCT 44.3 % (39.0-53.0); HGB 13.6 gm/dL (13.0-17.5); Lymphocytes # (A) 2.6 k/uL (1.0-4.8); Lymphocytes % (A) 24 %; MCH 30.2 pg (25.0-35.0); MCHC 30.8 g/dL (31.0-37.0); MCV 98.2 fL (80.0-100.0); Mean Platelet Volume 7.4; Monocytes % (A) 10 %; Neutrophils # (A) 6.6 k/uL (1.3-7.7); Neutrophils % (A) 61 %; Platelet Count 363 k/uL (150-450); RBC 4.51 m/uL (4.30-5.90); RDW 14.1 % (11.5-15.5); WBC 10.9 k/uL (3.8-10.6)
[2021-12-02] MEDS ORDERED: VERAPAMIL 2.5 MG/ML 2 ML AMP ONE ×2 (07:11→11:56)
[2021-12-02] MEDS ORDERED: fentaNYL (PF) 50 MCG/ML 2 ML AMP ONE ×2 (07:25→12:26)
[2021-12-02] MEDS ORDERED: MIDAZOLAM 2 MG/2 ML VIAL IV ONE (07:35)
[2021-12-02] MEDS: fentaNYL (PF) 50 MCG/ML 2 ML AMP IV ONE ×4 (07:35→12:49)
[2021-12-02] MEDS ORDERED: LIDOCAINE 1% INJ 10MG/ML (5 ML VIAL-PF) SQ ONE (07:36)
[2021-12-02] MEDS ORDERED: VERAPAMIL SYRINGE (5 MG/10 ML) INTRAARTER ONE ×2 (07:40→12:30)
[2021-12-02] MEDS ORDERED: HEPARIN SODIUM 1,000 UN/ML (10ML VL) IV ONE ×2 (07:41→12:48)
[2021-12-02] MEDS ORDERED: IOPAMIDOL-370 125ML BTL INJ ONE ×2 (08:23→13:03)
[2021-12-02] MEDS ORDERED: HYDROmorphone 0.5 MG/0.5 ML SYRINGE IVP STA (10:27)
[2021-12-02] MEDS ORDERED: IV FLUID CONTINUATION 1,000 ML IV ONE (12:15)
[2021-12-02] MEDS: MIDAZOLAM 2 MG/2 ML VIAL IV ONE ×2 (12:30→12:42)
[2021-12-02] MEDS ORDERED: CLOPIDOGREL 75 MG TAB ONE (12:45)
[2021-12-02] MEDS ORDERED: CLOPIDOGREL 75 MG TAB PO ONE (12:49)
[2021-12-02] MEDS ORDERED: NITROGLYCERIN 1000MCG/10ML SYRINGE INTRACORON ONE (12:57)
[2021-12-02] MEDS ORDERED: SODIUM CHLORIDE 0.9% 1,000 ML IV ONE (13:00)
[2021-12-02] MEDS ORDERED: LIDOCAINE 1% INJ 10MG/ML (30 ML VIAL-PF) SQ ONE (13:09)
[2021-12-02] MEDS ORDERED: IOPAMIDOL-370 100ML BTL INJ ONE (13:09)
[2021-12-02] MEDS ORDERED: RX INFO: IV CONTRAST WAS GIVEN 1 EACH MISC MISCELLANE PRN (13:20)
[2021-12-02] MEDS ORDERED: ZOLPIDEM 5 MG TAB PO PRN (13:20)
[2021-12-02] MEDS ORDERED: NITROGLYCERIN SL TABS 0.4 MG TAB SUBLINGUAL PRN (13:20)
[2021-12-02] MEDS ORDERED: MAG HYDROX/AL HYDROX/SIMETH 30 ML CUP PO PRN (13:20)
[2021-12-02] MEDS ORDERED: ATROPINE SULFATE 0.1 MG/ML 10ML SYRINGE IV PRN (13:20)
--- NOTE | 2021-12-02 13:26 | P.CARDCATH ---
Date of Procedure: 12/02/21 Description of Procedure: PERCUTANEOUS TRANSLUMINAL CORONARY ANGIOPLASTY CLINICAL INFORMATION: The patient is a 61-year-old male who has been followed by Dr. Hutchinson who has been complaining of dyspnea on exertion and had an abnormal MPI with anterior wall defect, he underwent cardiac catheterization by Dr. Duval and was found to have significant obstructive disease in the proximal midsegment of the LAD, calcified.. Recommendations were made regarding angioplasty and stenting. The procedure as well as the risks and the complications were discussed with the patient who was in full understanding and agreement. PROCEDURE: Using the guidewire exchange technique the 6-Faroese sheaths was exchanged for a new 6-Faroese sheath. There was a significant radial loop. A 6 Faroese EBU 3.75 guiding catheter was introduced into the system. After cannulating the left main, a 0.014 BMW J was advanced across the lesion and positioned distally. Following that a 2.25 x 12 mm NC Treck balloon was advanced and inflated at 10 atmosphere. Following that a 2.5 x 18 mm Xience feliz point stent was deployed. It was dilated at stain. Following the 2.75 x 12 mm NC Treck balloon was advanced and one inflation and the stent at 10 jorge was done. After the last inflation, after appropriate wait, the balloon and the guidewire were withdrawn back into the guiding catheter. Images were obtained and repeated. Those images reveal stable successful stenting. At that point, the guiding catheter, the balloon, and guidewire were removed. The sheath was removed. Hemostasis was obtained with deployment 50 event. There were no immediate complications. The patient was returned to the room in stable condition. Of note, the patient received 5000 units of heparin as well as Plavix. His ACT was followed. There was no immediate complications. He had no chest discomfort or EKG changes with the inflation. RESULTS: Successful stenting of the proximal mid LAD with reduction of stenosis from 80 % to 0 %. RECOMMENDATIONS: The patient will continue on aspirin and Plavix without any interruption for 6 months. Depending on his symptoms will be reevaluated regarding the need to undergo revascularization of the RCA. Aggressive coronary risks modifications will be continued. The findings and recommendations were discussed with the patient and the family, they are in full understanding and agreement. Duration of sedation: 45 minutes
[2021-12-02] MEDS ORDERED: SODIUM CHLORIDE 0.9% 1,000 ML in EMPTY BAG 1 BAG IV SCH (13:30)
[2021-12-02] MEDS ORDERED: ATORVASTATIN 40 MG TAB PO STA (14:12)
[2021-12-02] MEDS ORDERED: METOPROLOL SUCCINATE (ER) 25 MG TAB.ER.24H PO STA (14:12)
--- NOTE | 2021-12-02 17:31 | CC ---
CARDIAC CATHETERIZATION REPORT 61-year-old gentleman with history of dyslipidemia, smoking, and strong family history of premature coronary artery disease, who presented to us with symptoms of exertional shortness of breath and an abnormal echocardiogram showing wall motion abnormalities involving his septum with mild LV systolic dysfunction. His nuclear scan did not reveal any perfusion defects. Given his symptoms and the abnormal echocardiogram, I advised him to undergo cardiac catheterization for further evaluation. He has been explained of risks, benefits, and alternatives. He understood and accepted. PROCEDURE NOTE: After obtaining informed consent, left heart catheterization and coronary angiogram were performed via the right radial artery using standard Sascha catheters. Right radial artery access was obtained using a micropuncture needle and using a Glidewire. Catheters and wires were exchanged in the ascending aorta. The right Sascha catheter was used to engage the right coronary artery and we obtained left ventricular pressures, and a Eric catheter was used to engage the left coronary artery as a regular right Sascha catheter would not go past the brachial artery. The patient tolerated the procedure well without any obvious immediate complications. Total sedation time was 44 minutes. The patient received 5000 units of IV heparin per protocol and 10 mg of verapamil. He also received conscious sedation. FINDINGS: 1. Hemodynamics: Left ventricular end-diastolic pressure is 14 mm. There is no significant gradient across the aortic valve. 2. Left ventriculogram: Not performed. 3. Angiographic data: a.Right coronary artery: A large dominant vessel. There is a mild atherosclerotic plaque in the midportion. At its worst, it seems to be 40% to 50% stenosis. b.Left main coronary artery: Appears calcified, but is free of significant stenosis. Divides into circumflex coronary artery and left anterior descending coronary artery. Circumflex coronary artery shows mild nonobstructive disease. LAD has a long segment of narrowing in the proximal portion. At its worst, it seems to be a 90% stenosis. CONCLUSION: 80% to 90% stenosis involving LAD. PLAN: I am going to have Dr. Delaney, the on-call loom fixer, review the angiographic data and perform angioplasty and stent placement in the LAD. MMODL / IJN: [id number] /
[2021-12-03 07:29] LABS: African American GFR (CKD) >90 (>60 ml/min/1.73 sqM); Anion Gap 10 mmol/L; Blood Urea Nitrogen 9 mg/dL (9-20); Calcium 8.9 mg/dL (8.4-10.2); Carbon Dioxide 23 mmol/L (22-30); Chloride 105 mmol/L (98-107); Glucose 99 mg/dL (74-99); Non-African American GFR(CKD) >90 (>60 ml/min/1.73 sqM); Potassium 4.5 mmol/L (3.5-5.1); Sodium 138 mmol/L (137-145)
[2021-12-03 07:32] VITALS: BP 120/78; PULSE 78; RESP 18; TEMP 98
--- NOTE | 2021-12-03 08:38 | DS ---
DISCHARGE SUMMARY PROCEDURES PERFORMED: 1. Cardiac catheterization. 2. Angioplasty with stent placement in the left anterior descending. HOSPITAL COURSE: Dany is a 61-year-old gentleman who presented to me with symptoms of exertional shortness of breath and underwent cardiac catheterization for further evaluation of the same. His cardiac catheterization revealed significant focal obstructive lesion in the LAD. There was also moderate stenosis involving right coronary artery. The patient underwent angioplasty with stent placement of the LAD lesion and has had fairly uneventful hospital stay. This morning he is free of symptoms. PHYSICAL EXAMINATION: VITAL SIGNS: Stable. CHEST: Reveals good air entry bilaterally. HEART: Reveals first and second heart sounds. No gallop. No murmur. ABDOMEN: Soft and nontender. EXTREMITIES: Did not reveal any edema. Right radial artery access site appears normal. DISCHARGE MEDICATIONS: Include: 1. Aspirin. 2. Crestor. 3. Toprol-XL. 4. Sublingual nitroglycerin on p.r.n. basis. 5. Plavix 75 mg daily. FOLLOWUP PLAN: The patient will be followed up in my office in a week's time. MMELIAZARL / IJN: [id number] /
[2021-12-03] MEDS ORDERED: CLOPIDOGREL 75 MG TAB PO SCH (09:00)
[2021-12-03] MEDS ORDERED: METOPROLOL SUCCINATE (ER) 25 MG TAB.ER.24H PO SCH (09:00)
[2021-12-03] MEDS ORDERED: ASPIRIN 81 MG PO SCH (09:00)
[2021-12-03] MEDS ORDERED: ATORVASTATIN 40 MG TAB PO SCH (09:00)
== END 2021-12-03 08:52 | disposition home or self-care (01) ==
LOC: CATHCVL 05:52 → 6NMEDSUR 13:11 → CATHCVL 12-03 08:52
PROVIDERS: ATTEND Internal Medicine Cardiovascular Disease
DX: I25.10 Atherosclerotic heart disease of native coronary artery without angina pectoris (principal); I25.84 Coronary atherosclerosis due to calcified coronary lesion; E78.2 Mixed hyperlipidemia; R93.1 Abnormal findings on diagnostic imaging of heart and coronary circulation; F17.200 Nicotine dependence, unspecified, uncomplicated; I47.1 Supraventricular tachycardia; Z82.49 Family history of ischemic heart disease and other diseases of the circulatory system; Z79.82 Long term (current) use of aspirin; Z79.899 Other long term (current) drug therapy; Z88.5 Allergy status to narcotic agent
CPT/HCPCS: 93458; 80048; 85025; C1769 ×5; C9600; C1887; C1894; C1725 ×2; C1874; J2250; J2001 ×2; J3010; J1644; J1170; Q9967 ×2

== ENCOUNTER → 2023-04-13 | Outpatient (CLI) | payer MEDICARE ==
[2023-04-13 15:22] LABS: ALT 14 U/L (10-49); AST 15 U/L (14-35); Chol/HDL Ratio 6.25 Ratio; LDL Cholesterol,Calculated 165.1 mg/dL (0.0-131.0)
== END | disposition home or self-care (01) ==
LOC: LABWHC1 08:20
PROVIDERS: ATTEND Internal Medicine Cardiovascular Disease
DX: E78.2 Mixed hyperlipidemia (principal)
CPT/HCPCS: 36415; 80061; 84450; 84460

== ENCOUNTER → 2023-07-23 | Outpatient (CLI) | payer OTHER ==
--- NOTE | 2023-07-23 13:34 | P.PAINPG ---
PQRS Measure Charge Sheet History and Exam Findings: All other causes of pain ruled out Comment: HISTORY OF PRESENT ILLNESS: A 63 yr old male w at side as a referral from the [facility] presents today w severe and chronic LBP > 1 yr secondary to post laminectomy syndrome for evaluation. Pt states pain level is provoked at 7 /10 in intensity, constant, localized in the lumbar spine, predominantly axial, dull in character w occasional shooting pain towards the back of the RLE. Pain is provoked by walking/ standing/ sitting for periods > 15 min. Pain is alleviated by PT in 2020, heat, medications (Flexeril), topical BioFreeze gel, manual masasge, repositioning and rest. Oswestry axial pain score at 36. PMH: OA, COPD, Hyperlipidemia, HTN, L Tinnitus PSH: Hernia Repair, L Knee Arthroscopy, L Total Knee Replacement, Lumbar Exploratory Surgery w Foreign Object Removal, Lumbar CAGE (2020), Cardiac Cathet erization w Stents SH: Hx of tobacco use, No ETOH abuse, No illicit drug use FH: Mo- Colon CA, at age 51. Bro- Brain CA All: See list Meds: See list REVIEW OF ORGAN SYSTEMS: CONSTITUTIONAL: No fevers or chills. No recent weight loss. NEUROLOGICAL: + numbness and tingling along the distal extremities. No seizure disorders or headaches. MUSCULOSKELETAL: + pain PSYCHIATRIC: Denies current depression or suicidal thoughts. Physical Examinations : Constitutional : Cooperative , not in acute distress . Neurologic : Cranial nerve II to XII intact. No focal neurological deficits. Psychiatric : alert & oriented x 3. Matching mood & appropriate affect. Judgment & insight intact. Musculoskeletal : Cervical Spine Motor strength in the deltoid and biceps: Normal right side. Normal Left side Motor strength biceps and the wrist extensors: Normal right side . Normal left side Motor strength in the triceps muscle: Normal right side. Normal left side Deep tendon reflexes: Normal at the biceps. Normal at Brachioradialis. Normal at triceps Vertebral body tenderness to deep palpation over Cervical facet loading test: positive bilaterally Spurling test: positive bilaterally Neck distraction test: positive bilaterally Martha sign: positive bilaterally Lumbar spine +Incisional scars intact Motor strength lower extremities ,thigh and legs 5/5 Right side , 5/5 Left side Deep tendon reflexes : Normal Knee Jerk. Normal Ankle Jerk Vertebral body tenderness over Courtney Test positive Lumbar facet Loading Test: positive Right / positive Left Range of motion of the lumbar spine Flexion 30 degrees, extension 10 degrees Straight Leg Raise test: Left/ Right positive at degrees Rafaela test: positive right / positive left. Severe tenderness over the Sacroiliac joint on the Right / Left sides Gaenslen test: positive bilaterally Seated flexion test: positive bilaterally. Sacral spine : Severe tenderness over the Sacroiliac joint: right side / left side Range of motion: Flexion of the lumbar spine <60 degrees Range of motion: Extension of the lumbar spine <20 degrees Gaenslen's Test positive Rafaela test: positive right side / left side Thigh Thrust Test Sacral Thrust Test Imaging: CT noncontrast of the lumbar spine from 01/23/2021 reviewed Assessment/ Plan : Lumbar Post Laminectomy Syndrome Recommendation of CT Lumbar spine M 51.36. May benefit from a series of injections for optimal pain relief. Risks, benefits of procedure discussed and patient verbalizedunderstanding. Admits to anti- coagulant use or medical history of diabetes. Protocol for discontinuation/ continuation of medications ra procedure discussed. Minimal anesthesia provided, if clinically indicated, consisting of Versed and Fentanyl. All questions answered. I have spent greater than 30 minutes on patient care today. Dr Garcia was available by phone for the evaluation of this patient. The time was used to review the medical records including relevant urine studies and Prescription history (MAPs), review of the available imaging, evaluation and examination of the patient, coordination of care with the medical staff and if applicable referring physicians, as well as creation of the medical record PQRS Narrative: Hx Alcohol Use (MH) No Home Medications: Ambulatory Orders Acetaminophen [Tylenol Arthritis] 650 mg PO Q6H PRN 11/29/21 Rosuvastatin [Crestor] 20 mg PO DAILY 11/29/21 Aspirin [Adult Low Dose Aspirin EC] 81 mg PO DAILY 12/02/21 Metoprolol Succinate (ER) [Toprol Xl] 25 mg PO DAILY 12/02/21 Controlled Substance Measures - Controlled Substance Measures Is patient prescribed a controlled substance at discharge?: No
[2023-07-23 13:41] VITALS: BP 111/82; PULSE 108; RESP 16
== END ==
LOC: PNWHC3 12:57
PROVIDERS: ATTEND Specialist
DX: M47.816 Spondylosis without myelopathy or radiculopathy, lumbar region (principal); M96.1 Postlaminectomy syndrome, not elsewhere classified; Z88.5 Allergy status to narcotic agent; F17.200 Nicotine dependence, unspecified, uncomplicated
CPT/HCPCS: 99211

== ENCOUNTER → 2023-07-31 | Outpatient (CLI) | payer OTHER ==
--- NOTE | 2023-07-31 10:50 | CT ---
EXAMINATION TYPE: CT lumbar spine wo con DATE OF EXAM: 07/31/2023 9:03 AM COMPARISON: 01/23/2021 HISTORY: back pain CT DLP: 734 mGycm Automated exposure control for dose reduction was used. Unenhanced CT of the lumbar spine was performed. Bone and soft tissue window settings are submitted as well as coronal and sagittal reconstructions. Findings: There are extensive postsurgical changes with posterior metallic fusion from T10 through S1. There is interbody fusion of L2-3, L3-4, L4-5 and L5-S1. There is laminectomy defect from L2 through S1. There is a table grade 2 anterolisthesis of L5 and S1. There is no lumbar spine fracture. There is moderate slightly progressive degenerative disc disease at the L1 to level where there is mo derate disc space narrowing and anterior spondylosis. The sacrum and SI joints are normal. There is no large lumbar disc herniation. There is no recurrent spinal stenosis. The paraspinal soft tissues are unremarkable. There is stable mild bony neural foraminal encroachment at L5-S1 level bilaterally. IMPRESSION: 1. Extensive stable postsurgical changes of posterior metallic and interdisc fusion and laminectomy a s described above. 2. Stable grade 2 anterolisthesis of L5 on S1. 3. Stable mild bony encroachment of the L5-S1 neural foramina bilaterally. 4. Moderate degenerative disc disease at the L1-2 level which has progressed slightly in the interval . 5. No large new disc herniation or spinal stenosis.
== END | disposition home or self-care (01) ==
LOC: RADCTMAIN 08:38
PROVIDERS: ATTEND Specialist
DX: M51.36 Other intervertebral disc degeneration, lumbar region (principal); M43.17 Spondylolisthesis, lumbosacral region
CPT/HCPCS: 72131

== ENCOUNTER → 2023-08-06 | Outpatient (CLI) | payer OTHER ==
[2023-08-06 13:51] VITALS: BP 136/78; PULSE 103; RESP 16
--- NOTE | 2023-08-06 14:01 | P.PAINPG ---
Subjective Progress Note Date: 08/06/23 Principal diagnosis: lumbar back pain, pain radiating to right lower extremity Mr. Mendoza is a 63 -year-old pleasant male came to the [facility] pain clinic for follow-up visit . Patient has ongoing pain for many years. he had lumbar back surgery.Patient describes pain is aching, throbbing, constant type of pain. Pain is radiating to right lower extremity. Patient rated pain levels are 5-6 out of 10 in severity. With the help of medications pain levels are5-6 out of 10 in severity.his pain level varies from 4-8 out of 10 in severity. He is also complaining numbness, pain over the right anterolateral thigh area. He had sometimes difficulty performing his activities. Rarely his pain radiating to his right lower extremity to the ankle. Activities making pain worse. Medications, resting helping in relieving patient's pain. Patient pain some days better than others. Overall activities decreased secondary to pain. Because of the pain sometimes patient is feeling lack of sleep, interest, and energy. Denied any side effects with the medications. Denied any bowel or bladder problems at this time. Patient denies any suicidal or homicidal ideations intent or plan. Patient denies any auditory or visual hallucinations. Patient denied any red flag symptoms related to pain. CT of the lumbar spine done on 07/31/2023 showed Extensive stable postsurgical changes of the posterior metallic, and into disc fusion, and laminectomies. Stable grade 2 anterolisthesis of L5 on S1. Stable mild bony encroachment of L5-S1 neural foraminal bilaterally. Moderate degenerative disc disease at L1-L2 level which has progressed slightly in interval. No large new disc herniation or spinal canal stenosis Objective - Exam General: Well-developed, well-nourished, no acute distress HEENT: Normocephalic, and atraumatic Neck: Supple, no neck swelling Psychiatric: Appropriate mood, and affect MAINTENANCE SPECIALIST: No focal neurological deficits Musculoskeletal: Upper extremity: Normal strength, and range of motion. Sensation grossly intact Lower extremity: Normal strength, and decreased range of motion secondary to pain on right lower extremity Lumbar spine: Paravertebral tenderness: positive , multiple lumbar trigger point positive Extensive healed lumbar scar Lumbar facet load test : positive Sacroiliac joint tenderness: Positive - Constitutional Constitutional Comment(s): 12 point review of symptoms negative except as mentioned in history of present illness Assessment and Plan Assessment: lumbar postlaminectomy syndrome right-neuralgia paresthetica Right-sided lumbar radiculopathy Lumbar spondylosis without myelopathy Lumbar myofascial pain syndrome Plan: #1 Diagnoses, prognosis, and multiple treatment options including but not limited to physical therapy, interventional therapy, adjunct medication therapy, narcotic medication, and surgical options were discussed with the patient. And all questions were answered to the patient's satisfaction. #2 treatment plan agreement : Patient was thoroughly discussed regarding the treatment options, alternatives, and importance of exercises as tolerated. Patient clearly understood. #3 Patient was counseled on importance of regular exercise. Including armani chi, aerobic exercises as tolerated. Which helps for chronic pain, and overall well- being. #4 investigations: MAPS- reviewed , urine drug test- not done #5 diagnostic tests: none #6 consultation :continue physical therapy, and right lower extremity EMG/nerve conduction studies to rule out any nerve irritation. # 7 interventional procedures: right lateral femoral cutaneous nerve block under ultrasound guidance. Procedure, complications, alternatives discussed with the patient. #8 medications none from the pain clinic #9 morphine milligrams equivalents dose ( MME) per day: 0 from the pain clinic # 10 TENS unit's, and percussion massage device #11 disposition: scheduled to follow up with pain clinic in 8 weeks duration. Time with Patient: Less than 30 PQRS Measure Charge Sheet Measure #130: Documentation of Current Meds in Medical Chart: Patient's medications documented in chart Measure #226: Tobacco Use: Screen & Cessation Intervention: Pt not a tobacco user Measure #111: Pneumonia Vaccination: Pneumococcal vaccine administered or previously received Measure #47: Advance Care Plan: Advance care planning discussed & documented, plan or surrogate given Measure #412: Opioid Treatment Agreement: No documentation of signed opioid treatment agreement Measure #408: Opioid Therapy Follow-up Evaluation: Patient had NO f/u eval minimum every 3 months during opioid therapy Measure #317: Preventitive Care & Scrn High Bld Press & F/U: Pre-hypertensive or hypertensive BP documented, pt will f/u with PCP Measure #128: Body Mass Index (BMI) Screening & Follow-up: BMI documented ABOVE normal parameters - f/u documented Measure #131: Pain Assessment & Follow-up: Pain positive & plan documented Measure #431: Unhealthy Alcohol Use Preventative Care & Scrn: Patient not identified as an unhealthy alcohol user - Pain Location Bilateral Lower Back Non-Pharmacological Interventions: Heat, Ice Pharmacological Interventions: PRN Medication, Topical Medication PQRS Narrative: Hx Alcohol Use () No Home Medications: Ambulatory Orders Acetaminophen [Tylenol Arthritis] 650 mg PO Q6H PRN 11/29/21 Rosuvastatin [Crestor] 20 mg PO DAILY 11/29/21 Aspirin [Adult Low Dose Aspirin EC] 81 mg PO DAILY 12/02/21 Metoprolol Succinate (ER) [Toprol Xl] 25 mg PO DAILY 12/02/21 Controlled Substance Measures - Controlled Substance Measures Is patient prescribed a controlled substance at discharge?: No
== END ==
LOC: PNWHC3 13:19
DX: M54.50 Low back pain, unspecified (principal); M96.1 Postlaminectomy syndrome, not elsewhere classified; M47.26 Other spondylosis with radiculopathy, lumbar region; M79.18 Myalgia, other site; G57.11 Meralgia paresthetica, right lower limb; F17.200 Nicotine dependence, unspecified, uncomplicated; Z71.82 Exercise counseling; Z88.5 Allergy status to narcotic agent
CPT/HCPCS: 99211

== ENCOUNTER 2023-08-18 08:41 | Day surgery (SDC) | payer OTHER ==
[~2023-08-18 08:41] MED LIST changes: -ALPRAZolam 0.25 MG TAB PO PRN; -ALPRAZolam 0.5 MG TAB PO PRN; -ASPIRIN 325 MG TAB PO STA; -ATORVASTATIN 80 MG TAB PO STA; -HEPARIN SODIUM,PORCINE 10,000 UNIT in SODIUM CHLORIDE 0.9% 1,000 ML IRRIGATION PRN; -HEPARIN SODIUM,PORCINE 2,500 UNIT in SODIUM CHLORIDE 0.9% 250 ML IRRIGATION PRN; +LACTATED RINGERS 1,000 ML IV SCH; -NITROGLYCERIN SL TABS 0.4 MG TAB SUBLINGUAL PRN
[2023-08-18 09:15] VITALS: RESP 16; TEMP 97.3
[2023-08-18] MEDS ORDERED: ROPIVACAINE 5MG/ML 20ML VIAL ONE (09:16)
[2023-08-18] MEDS ORDERED: methylPREDNISolone ACETATE 40 MG/ML 1 ML VIAL ONE (09:16)
--- NOTE | 2023-08-18 09:24 | P.PCN ---
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 Ultrasound guidance was needed to identify the structures including LFC nerve and any vascular structures surrounding. A 25-gauge one and a half inch needle was used under ultrasound guidance in plane. After identification of the lateral femoral cutaneous nerve as well as the sartorius muscle. after negative aspiration, 2 ML's of 0.5% rop ivacaine mixed with 40 mg of Depo-Medrol were injected to surround the lateral femoral cutaneous nerve. Needle was removed intact and a Band-Aid was placed. The patient was discharged to the recovery room in stable condition
[2023-08-18 10:17] VITALS: BP 122/87; PULSE 89
== END 2023-08-18 10:15 | disposition home or self-care (01) ==
LOC: ORPAIN 08:41
PROVIDERS: ATTEND Hospitalist
DX: M54.16 Radiculopathy, lumbar region (principal)
CPT/HCPCS: 64447; J2795; J1010

== ENCOUNTER → 2023-09-03 | Outpatient (CLI) | payer MEDICARE ==
--- NOTE | 2023-09-05 14:14 | CTL ---
EXAMINATION TYPE: CT Low Dose Lung DATE OF EXAM ORDERED: 09/03/2023 HISTORY: Nicotine dependence. Lung cancer screening CT DLP: 88.[address] CTDI: 2.5 mGy Automated exposure control for dose reduction was used. SCREENING VISIT: Subsequent COMPARISON: 04/11/2020 TECHNIQUE: Low dose computed tomography scan was performed through the chest at 1 mm thick sections a nd reconstructed images in the coronal plane at [address] DIAGNOSTIC QUALITY: Satisfactory FINDINGS: LUNG NODULES: None. There appears to be some scarring at the bilateral lung apices present previously LUNGS: COPD: Severity: Moderate Fibrosis: Severity: None Lymph nodes: None Other findings: None RIGHT PLEURAL SPACE: Effusion: None Calcification: None Thickening: None Pneumothorax: None LEFT PLEURAL SPACE: Effusion: None Calcification: None Thickening: None Pneumothorax: None HEART: Other: Ascending thoracic aorta at the level the main pulmonary artery measures 3.9 cm. The main pul monary artery at the bifurcation measures 2.2 cm. Heart Size: Normal Coronary calcification: Moderate Pericardial effusion: None OTHER FINDINGS: Upper abdomen: Normal Bony thorax: Normal Supraclavicular region: Normal IMPRESSION: Benign appearing findings FOLLOW UP CT CHEST RECOMMENDATION: Follow-up low-dose CT chest one year CT LUNG RAD: Lung-Rad 2 Benign Appearance or Behavior
== END | disposition home or self-care (01) ==
LOC: RADCTMAIN 13:20
PROVIDERS: ATTEND Family Medicine
DX: Z12.2 Encounter for screening for malignant neoplasm of respiratory organs (principal); F17.210 Nicotine dependence, cigarettes, uncomplicated
CPT/HCPCS: 71271

== ENCOUNTER → 2023-09-07 | Outpatient (CLI) | payer MEDICARE ==
--- NOTE | 2023-09-07 16:27 | MR ---
EXAMINATION TYPE: MR brain wo con DATE OF EXAM: 09/07/2023 4:08 PM CLINICAL INDICATION:Male, 63 years old with history of R20.2 PARESTHESIA OF SKIN; PHH, Paresthesia ri ght lower extremity, paresthesia of skin COMPARISON: None. TECHNIQUE: Multi planar, multi sequence imaging was performed through the brain including: T1, T2, In version recovery, Diffusion weighted imaging, and gradient echo imaging. No gadolinium was given. FINDINGS: The norton-white junctions, ventricular system, basal cisterns appear unremarkable. Scattered foci of high T2 signal intensity are seen within the periventricular white matter. Midline structures show n o abnormality. Diffusion-weighted imaging shows no evidence of restricted diffusion. The susceptibili ty weighted images do not reveal any evidence for micro-hemorrhage. The bone marrow signal is within normal limits. Paranasal sinuses and mastoid air cells: Mild scattered paranasal sinus disease. Visualized orbits: Orbital contents are intact. IMPRESSION: 1. No evidence of intracranial mass or acute/subacute infarct. 2. Nonspecific white matter changes, likely secondary to small vessel ischemic disease.
== END | disposition home or self-care (01) ==
LOC: RADUSWWP 15:20
PROVIDERS: ATTEND Family Medicine
DX: G93.89 Other specified disorders of brain (principal); R20.2 Paresthesia of skin
CPT/HCPCS: 70551

== ENCOUNTER → 2023-09-17 | Outpatient (CLI) | payer OTHER ==
[2023-09-17 13:19] VITALS: RESP 16
[2023-09-17 13:24] VITALS: BP 115/84; PULSE 116
--- NOTE | 2023-09-17 13:31 | P.PAINPG ---
PQRS Measure Charge Sheet Comment: HISTORY OF PRESENT ILLNESS: A 63 yr old male w at side presents today w severe and chronic LBP > 1 yr secondary to post laminectomy syndrome for evaluation s/p R lateral cutaneous nerve block #1. Pt states he experienced 100% pain relief x 1 day s/p procedure. Pt states pain level is provoked at 7 /10 in intensity, constant, localized in the R lumbar spine, predominantly axial, dull in character w occasional shooting pain towards the R thigh. Pain is provoked by walking/ standing/ sitting for periods > 15 min. Pain is alleviated by PT in 2020, heat, medications, topical , manual massage, repositioning and rest. Oswestry axial pain score at 35. Interventional procedures include R Lateral Cutaneous Nerve Block x1 Medications include Flexeril, BioFreeze Gel REVIEW OF ORGAN SYSTEMS: CONSTITUTIONAL: No fevers or chills. No recent weight loss. NEUROLOGICAL: + numbness and tingling along the distal extremities. No seizure disorders or headaches. MUSCULOSKELETAL: + pain PSYCHIATRIC: Denies current depression or suicidal thoughts. Physical Examinations : Constitutional : Cooperative , not in acute distress . Neurologic : Cranial nerve II to XII intact. No focal neurological deficits. Psychiatric : alert & oriented x 3. Matching mood & appropriate affect. Judgment & insight intact. Musculoskeletal : Cervical Spine Motor strength in the deltoid and biceps: Normal right side. Normal Left side Motor strength biceps and the wrist extensors: Normal right side . Normal left side Motor strength in the triceps muscle: Normal right side. Normal left side Deep tendon reflexes: Normal at the biceps. Normal at Brachioradialis. Normal at triceps Vertebral body tenderness to deep palpation over Cervical facet loading test: positive bilaterally Spurling test: positive bilaterally Neck distraction test: positive bilaterally Martha sign: positive bilaterally Lumbar spine +Incisional scars intact Motor strength lower extremities ,thigh and legs 5/5 Right side , 5/5 Left side Deep tendon reflexes : Normal Knee Jerk. Normal Ankle Jerk Vertebral body tenderness over Courtney Test positive R L2-L3 > R L3-L4 Lumbar facet Loading Test: positive Right / positive Left Range of motion of the lumbar spine Flexion 30 degrees, extension 10 degrees Straight Leg Raise test: Left/ Right positive at degrees Rafaela test: positive right / positive left. Severe tenderness over the Sacroiliac joint on the Right / Left sides Gaenslen test: positive bilaterally Seated flexion test: positive bilaterally. Sacral spine : Severe tenderness over the Sacroiliac joint: right side / left side Range of motion: Flexion of the lumbar spine <60 degrees Range of motion: Extension of the lumbar spine <20 degrees Gaenslen's Test positive Rafaela test: positive right side / left side Thigh Thrust Test Sacral Thrust Test Imaging: CT noncontrast of the lumbar spine from 01/23/[address] noncontrast of the lumbar spine from 07/31/23 reviewed Assessment/ Plan : Lumbar Post Laminectomy Syndrome Recommendation of R TFESI L2-L3, L3-L4. May need a series of injections for optimal pain relief. Risks, benefits of procedure discussed and patient verbalized understanding. Admits to anti- coagulant use or medical history of diabetes. Protocol for discontinuation/ continuation of medications ra procedure discussed. Minimal anesthesia provided, if clinically indicated, consisting of Versed and Fentanyl. All questions answered. I have spent greater than 30 minutes on patient care today. Dr Garcia was available by phone for the evaluation of this patient. The time was used to review the medical records including relevant urine studies and Prescription history (MAPs), review of the available imaging, evaluation and examination of the patient, coordination of care with the medical staff and if applicable referring physicians, as well as creation of the medical record PQRS Narrative: Hx Alcohol Use (MH) No Home Medications: Ambulatory Orders Cyclobenzaprine [Flexeril] 10 mg PO BID 08/17/23 Controlled Substance Measures - Controlled Substance Measures Is patient prescribed a controlled substance at discharge?: No
== END ==
LOC: PNWHC3 12:59
PROVIDERS: ATTEND Specialist
DX: M96.1 Postlaminectomy syndrome, not elsewhere classified (principal); F17.200 Nicotine dependence, unspecified, uncomplicated; Z88.5 Allergy status to narcotic agent; Z88.8 Allergy status to other drugs, medicaments and biological substances
CPT/HCPCS: 99211

== ENCOUNTER 2023-10-01 12:36 | Day surgery (SDC) | payer OTHER ==
[2023-10-01 13:44] VITALS: RESP 16; TEMP 98.5
[2023-10-01] MEDS ORDERED: IOPAMIDOL M200 10 ML VIAL ONE (15:18)
[2023-10-01] MEDS ORDERED: DEXAMETHASONE SOD PHOSPHATE 10 MG/ML 1 ML VIAL ONE (15:18)
[2023-10-01] MEDS ORDERED: ROPIVACAINE 5MG/ML 20ML VIAL ONE (15:18)
--- NOTE | 2023-10-01 15:37 | P.PCN ---
Description of Procedure: PREOPERATIVE DIAGNOSIS: 1-Lumbar radiculopathy . 2-lumbar degenerative disc disease. 3-lumbar spondylosis with lumbar facet arthropathy without myelopathy POSTOPERATIVE DIAGNOSIS: 1-lumbar radiculopathy. 2-lumbar degenerative disc disease. 3-lumbar spondylosis with facet arthropathy without myelopathy PROCEDURE 1. Transforaminal epidural steroid injection under fluoroscopic guidance at RIGHT L3-4 level. (Fluoroscopy images stored on file in the radiology Department ) 2. Lumbar epidurogram . ANESTHESIA: Local with 1% lidocaine 5 ml. subcutaneously. Continuous pulse ox, EKG, blood pressure and verbal communication was maintained with the patient. EBL: Minimal PROCEDURE INDICATION: The patient with low back pain and radiculopathy symptoms unresponsive to conservative treatment. The patient was seen and identified in the preoperative area. Risks, benefits, complications, and alternatives were discussed with the patient. The patient agreed to proceed with the procedure and signed the consent. IV was started, and vital signs were stable. PROCEDURE DESCRIPTION / TECHNIQUE: After getting consent, patient was taken to the OR and time out was completed. The patient was placed in the prone position on procedure table and a pillow was placed under the abdomen to reduce lumbar lordosis. The lumbosacral area was prepped and draped in the usual sterile fashion. Critical pause was taken. After injecting 5 mL of plain 1% lidocaine subcutaneously, under oblique view of the fluoroscope, a 22-gauge spinal needle was introduced under the tunnel view of the fluoroscope on the RIGHT side and the needle was advanced so that the tip of the needle was at the posterior inferior quadrant of the intervertebral foramen at the lateral view of the fluoroscope and in the lateral third of the facet column in the AP view of the fluoroscope. Negative CSF, negative blood, negative paresthesia. After needle position confirmation by AP and cross table lateral view, 3 mL of Isovue-M 200 contrast was injected under continuous fluoroscope. No contrast was noted in the intrathecal or intravascular space. The epidurogram was noted. Again after repeated negative aspiration 2.5 mL solution was injected which consists 1.5 mL of normal saline mixed with 1 mL of 20 mg dexamethasone. Needle was removed . At the end of the procedure, skin was cleansed, and bandages were applied. DISPOSITION / PLANS: No complication. The patient tolerated the procedure well. The patient was placed in a supine position and transferred to the recovery area in a stable condition for observation. There was no evidence of lower extremity motor or sensory deficit after the procedure. Patient was discharged from the recovery room after meeting discharge criteria. Home discharge instructions were given to the patient by the staff. The patient was reexamined prior to discharge.
[2023-10-01 15:55] VITALS: BP 128/87; PULSE 82
--- NOTE | 2023-10-02 12:00 | FL ---
EXAMINATION TYPE: FL guided pain mgmt statistic Intraoperative/procedural fluoroscopic services were provided. Total fluoroscopy time is 43.4 seconds with a total of 2 submitted images to PACS. Please s ee the operative/procedural note for further details. DAP: 0.85936 mGym2
== END 2023-10-01 15:59 | disposition home or self-care (01) ==
LOC: ORPAIN 12:36
PROVIDERS: ATTEND Pain Medicine Interventional Pain Medicine
DX: M47.26 Other spondylosis with radiculopathy, lumbar region (principal); M51.16 Intervertebral disc disorders with radiculopathy, lumbar region; Z79.82 Long term (current) use of aspirin; Z88.5 Allergy status to narcotic agent; Z88.8 Allergy status to other drugs, medicaments and biological substances
CPT/HCPCS: 64483; J1100; Q9966; J2795; 64484

== ENCOUNTER → 2023-10-26 | Outpatient (CLI) | payer OTHER ==
[2023-10-26 09:45] VITALS: BP 138/96; PULSE 101; RESP 16
--- NOTE | 2023-10-26 15:01 | P.PAINPG ---
PQRS Measure Charge Sheet Comment: HISTORY OF PRESENT ILLNESS: A 63 yr old male w at side presents today w severe and chronic LBP > 1 yr secondary to post laminectomy syndrome for evaluation s/p R TFESI L3-L4 #1. Pt states he experienced 50 % pain relief x 2-3 wks s/p procedure. Pt states pain level is provoked at 6 /10 in intensity, constant, localized in the R lumbar spine, predominantly axial, dull in character w occasional shooting pain towards the R thigh. Pain is provoked by walking/ standing/ sitting for periods > 15 min. Pain is alleviated by PT in 2020, heat, medications, topical , manual massage, repositioning and rest. Oswestry axial pain score at 34. Interventional procedures include R Lateral Cutaneous Nerve Block x1, R TFESI L3-L4 x1 Medications include Flexeril, BioFreeze Gel REVIEW OF ORGAN SYSTEMS: CONSTITUTIONAL: No fevers or chills. No recent weight loss. NEUROLOGICAL: + numbness and tingling along the distal extremities. No seizure disorders or headaches. MUSCULOSKELETAL: + pain PSYCHIATRIC: Denies current depression or suicidal thoughts. Physical Examinations : Constitutional : Cooperative , not in acute distress . Neurologic : Cranial nerve II to XII intact. No focal neurological deficits. Psychiatric : alert & oriented x 3. Matching mood & appropriate affect. Judgment & insight intact. Musculoskeletal : Cervical Spine Motor strength in the deltoid and biceps: Normal right side. Normal Left side Motor strength biceps and the wrist extensors: Normal right side . Normal left side Motor strength in the triceps muscle: Normal right side. Normal left side Deep tendon reflexes: Normal at the biceps. Normal at Brachioradialis. Normal at triceps Vertebral body tenderness to deep palpation over Cervical facet loading test: positive bilaterally Spurling test: positive bilaterally Neck distraction test: positive bilaterally Martha sign: positive bilaterally Lumbar spine +Incisional scars intact Motor strength lower extremities ,thigh and legs 5/5 Right side , 5/5 Left side Deep tendon reflexes : Normal Knee Jerk. Normal Ankle Jerk Vertebral body tenderness over Courtney Test positive R L2-L3 Lumbar facet Loading Test: positive Right / positive Left Range of motion of the lumbar spine Flexion 30 degrees, extension 10 degrees Straight Leg Raise test: Left/ Right positive at degrees Rafaela test: positive right / positive left. Severe tenderness over the Sacroiliac joint on the Right / Left sides Gaenslen test: positive bilaterally Seated flexion test: positive bilaterally. Sacral spine : Severe tenderness over the Sacroiliac joint: right side / left side Range of motion: Flexion of the lumbar spine <60 degrees Range of motion: Extension of the lumbar spine <20 degrees Gaenslen's Test positive Rafaela test: positive right side / left side Thigh Thrust Test Sacral Thrust Test Imaging: CT noncontrast of the lumbar spine from 01/23/[address] noncontrast of the lumbar spine from 07/31/23 reviewed Assessment/ Plan : Lumbar Post Laminectomy Syndrome Recommendation of R TFESI L2-L3 #2. May need a series of injections for optimal pain relief. Risks, benefits of procedure discussed and patient verbalized understanding. Admits to anti- coagulant use or medical history of diabetes. Protocol for discontinuation/ continuation of medications ra procedure discussed. Minimal anesthesia provided, if clinically indicated, consisting of Versed and Fentanyl. All questions answered. I have spent greater than 30 minutes on patient care today. Dr Garcia was available by phone for the evaluation of this patient. The time was used to review the medical records including relevant urine studies and Prescription history (MAPs), review of the available imaging, evaluation and examination of the patient, coordination of care with the medical staff and if applicable referring physicians, as well as creation of the medical record - Pain Location Right Lower Back Non-Pharmacological Interventions: Heat Pharmacological Interventions: Block, Epidural, PRN Medication PQRS Narrative: Hx Alcohol Use (MH) No Home Medications: Ambulatory Orders Cyclobenzaprine [Flexeril] 10 mg PO BID 08/17/23 Albuterol Inhaler [Ventolin Hfa Inhaler] 1 - 2 puff INHALATION Q6H PRN 09/30/23 Aspirin 81 mg PO DAILY 09/30/23 Atorvastatin [Lipitor] 20 mg PO DAILY 09/30/23 Fluticasone/Umeclidin/Vilanter [Trelegy Ellipta 200-62.5-25] 1 puff INHALATION DAILY 09/30/23 Controlled Substance Measures - Controlled Substance Measures Is patient prescribed a controlled substance at discharge?: No
== END ==
LOC: PNWHC3 09:22
PROVIDERS: ATTEND Specialist
DX: M96.1 Postlaminectomy syndrome, not elsewhere classified (principal); F17.200 Nicotine dependence, unspecified, uncomplicated; Z88.5 Allergy status to narcotic agent; Z88.8 Allergy status to other drugs, medicaments and biological substances
CPT/HCPCS: 99211

== ENCOUNTER 2023-11-10 07:43 | Day surgery (SDC) | payer OTHER ==
[2023-11-10] MEDS ORDERED: DEXAMETHASONE SOD PHOSPHATE 10 MG/ML 1 ML VIAL ONE (08:36)
[2023-11-10] MEDS ORDERED: IOPAMIDOL M200 10 ML VIAL ONE (08:36)
--- NOTE | 2024-01-05 18:19 | FL ---
EXAMINATION TYPE: FL guided pain mgmt statistic COMPARISON: Pre Operative Images if available both CT/MRI or plain film CLINICAL INDICATION: Male, 63 years old with history of PAIN RIGHT TRANSFORAMINAL INJ; TECHNIQUE: FL guided pain mgmt statistic, multiple fluoroscopic images provided for procedure. Total fluoroscopy time: XX seconds minutes Total submitted images to PACS: 2 DAP: XX mGym2 Gycm2 uGym2 cGycm2 FINDINGS: Fluoroscopic images during injection for pain management demonstrate multilevel degeneration changes throughout the spine. No evidence for fracture. No acute process identified. IMPRESSION: 1. No evidence for intraoperative complication. 2. Please see the operative/procedural note for further details. [facility], , 01/05/2024 6:17 PM
== END 2023-11-10 09:25 | disposition home or self-care (01) ==
LOC: ORPAIN 07:43
PROVIDERS: ATTEND Anesthesiology
DX: M54.16 Radiculopathy, lumbar region (principal); Z88.5 Allergy status to narcotic agent; Z79.82 Long term (current) use of aspirin; Z79.899 Other long term (current) drug therapy
CPT/HCPCS: 64483

== ENCOUNTER → 2023-12-03 | Outpatient (CLI) | payer OTHER ==
[2023-12-03 13:37] VITALS: BP 120/84; PULSE 99; RESP 16; TEMP 97.8
--- NOTE | 2023-12-03 14:43 | P.PAINPG ---
PQRS Measure Charge Sheet Comment: HISTORY OF PRESENT ILLNESS: A 63 yr old male w at side presents today w severe and chronic LBP > 1 yr secondary to post L2-S1 laminectomy syndrome for evaluation s/p R TFESI L2-L3 #2. Pt states he experienced 50 % pain relief x 2-3 wks s/p procedure. Pt states pain level is provoked at 7 /10 in intensity, constant, localized in the R lumbar spine, predominantly axial, sharp in character w occasional shooting pain towards the R hip, then less often down the back of the RLE. Pain is provoked by walking/ standing/ sitting for periods > 15 min. Pain is alleviated by PT in 2020, heat, ice, medications, topical , manual massage, repositioning and rest. Interventional procedures include R Lateral Cutaneous Nerve Block x1, R TFESI L3-L4 x1, R TFESI L2-L3 x1 Medications include Flexeril, BioFreeze Gel REVIEW OF ORGAN SYSTEMS: CONSTITUTIONAL: No fevers or chills. No recent weight loss. NEUROLOGICAL: + numbness and tingling along the distal extremities. No seizure disorders or headaches. MUSCULOSKELETAL: + pain PSYCHIATRIC: Denies current depression or suicidal thoughts. Physical Examinations : Constitutional : Cooperative , not in acute distress . Neurologic : Cranial nerve II to XII intact. No focal neurological deficits. Psychiatric : alert & oriented x 3. Matching mood & appropriate affect. Judgment & insight intact. Musculoskeletal : Cervical Spine Motor strength in the deltoid and biceps: Normal right side. Normal Left side Motor strength biceps and the wrist extensors: Normal right side . Normal left side Motor strength in the triceps muscle: Normal right side. Normal left side Deep tendon reflexes: Normal at the biceps. Normal at Brachioradialis. Normal at triceps Vertebral body tenderness to deep palpation over Cervical facet loading test: positive bilaterally Spurling test: positive bilaterally Neck distraction test: positive bilaterally Martha sign: positive bilaterally Lumbar spine +Incisional scars intact Motor strength lower extremities ,thigh and legs 5/5 Right side , 5/5 Left side Deep tendon reflexes : Normal Knee Jerk. Normal Ankle Jerk Vertebral body tenderness over L5 Courtney Test positive R L5-S1 Lumbar facet Loading Test: positive Right / positive Left Range of motion of the lumbar spine Flexion 30 degrees, extension 10 degrees Straight Leg Raise test: Left/ Right positive at degrees Rafaela test: positive right / positive left. Severe tenderness over the Sacroiliac joint on the Right / Left sides Gaenslen test: positive bilaterally Seated flexion test: positive bilaterally. Sacral spine : Severe tenderness over the Sacroiliac joint: right side / left side Range of motion: Flexion of the lumbar spine <60 degrees Range of motion: Extension of the lumbar spine <20 degrees Gaenslen's Test positive Rafaela test: positive right side / left side Thigh Thrust Test Sacral Thrust Test Imaging: CT noncontrast of the lumbar spine from 01/23/[address] noncontrast of the lumbar spine from 07/31/23 reviewed Assessment/ Plan : Post L2-S1 Laminectomy Syndrome Recommendation of R TFESI L5-S1 #3. May need a series of injections for optimal pain relief. Risks, benefits of procedure discussed and patient verbalized understanding. Admits to anti- coagulant use or medical history of diabetes. Protocol for discontinuation/ continuation of medications ra procedure discussed. Minimal anesthesia provided, if clinically indicated, consisting of Versed and Fentanyl. All questions answered. I have spent greater than 30 minutes on patient care today. Dr Garcia was available by phone for the evaluation of this patient. The time was used to review the medical records including relevant urine studies and Prescription history (MAPs), review of the available imaging, evaluation and examination of the patient, coordination of care with the medical staff and if applicable referring physicians, as well as creation of the medical record PQRS Narrative: Hx Alcohol Use (MH) No Home Medications: Ambulatory Orders Cyclobenzaprine [Flexeril] 10 mg PO BID 08/17/23 Albuterol Inhaler [Ventolin Hfa Inhaler] 1 - 2 puff INHALATION Q6H PRN 09/30/23 Aspirin 81 mg PO DAILY 09/30/23 Atorvastatin [Lipitor] 20 mg PO DAILY 09/30/23 Fluticasone/Umeclidin/Vilanter [Trelegy Ellipta 200-62.5-25] 1 puff INHALATION DAILY 09/30/23 Controlled Substance Measures - Controlled Substance Measures Is patient prescribed a controlled substance at discharge?: No
== END ==
LOC: PNWHC3 13:09
PROVIDERS: ATTEND Specialist
DX: M54.16 Radiculopathy, lumbar region
CPT/HCPCS: 99211

== ENCOUNTER 2023-12-29 09:25 | Day surgery (SDC) | payer OTHER ==
[2023-12-23 15:44] VITALS: BMI 23.0
[2023-12-29 10:18] VITALS: RESP 18; TEMP 97.1
[2023-12-29] MEDS ORDERED: methylPREDNISolone ACETATE 80 MG/ML 1 ML VIAL ONE (10:56)
[2023-12-29] MEDS ORDERED: IOPAMIDOL M200 10 ML VIAL ONE (10:56)
--- NOTE | 2023-12-29 11:06 | P.PCN ---
Date of Procedure: 12/29/23 Procedure(s) Performed: PREOPERATIVE DIAGNOSIS:1- Lumbar radiculopathy . 2-lumbar degenerative disc disease. 3-history of lumbar laminectomy and fusion surgery POSTOPERATIVE DIAGNOSIS: Same as preoperative diagnoses. PROCEDURE 1. Transforaminal epidural steroid injection under fluoroscopic guidance at right L5-S1 level. (Fluoroscopy images stored on file in the radiology Department ) 2. Lumbar epidurogram . ANESTHESIA: Local with 1% lidocaine 3 ml only. EBL: Minimal PROCEDURE INDICATION: The patient with low back pain and radiculopathy symptoms unresponsive to conservative treatment. PROCEDURE DESCRIPTION / TECHNIQUE: The patient was seen and identified in the preoperative area. Risks, benefits, complications, and alternatives were discussed with the patient. The patient agreed to proceed with the procedure and signed the consent., and vital signs were stable. Patient was taken to the OR and time out was completed. The patient was placed in the prone position on procedure table and a pillow was placed under the abdomen to reduce lumbar lordosis. The lumbosacral area was prepped and draped in the usual sterile fashion. Critical pause was taken. Vital signs were closely monitored during the procedure.. Using oblique fluoroscopy, the chin of the ``Randal dog at Right L5-S1 level was identified, and the skin and deeper tissues just below was localized with 1% lidocaine. Subsequently, a 22-gauge 3.5-inch spinal needle was advanced under a tunneled view fluoroscopic guidance just underneath the chin of the ``Randal dog at the right L5-S1 Under lateral fluoroscopy, the needle was then advanced to the posterior border of the interforaminal space. After negative aspiration of CSF and blood and with no paresthesias, 1 mL Isovue 200 contrast dye was injected excellent epidurogram and outlining of the nerve root Subsequently, 3 mL of block solution containing 60 mg Depo-Medrol and 2 mL of 0.9% normal saline PF was injected. Needle was removed . At the end of the procedure, skin was cleansed, and bandages were applied. COMPLICATIONS:none DISPOSITION / PLANS: The patient was placed in a supine position and transferred to the recovery area in a stable condition for observation. There was no evide nce of lower extremity motor or sensory deficit after the procedure. Patient was discharged from the recovery room after meeting discharge criteria. Home discharge instructions were given to the patient by the staff. The patient was reexamined prior to discharge.
[2023-12-29 11:24] VITALS: BP 145/92; PULSE 77
--- NOTE | 2023-12-29 12:00 | FL ---
EXAMINATION TYPE: FL guided pain mgmt statistic DATE OF EXAM: 12/29/2023 HISTORY: Fluoroscopy time Total dose area product (DAP) in uGy*m?, mGy*cm? (or similar): 0.46031 IMPRESSION: 1. Fluoroscopy time. [facility], , 12/29/2023 11:57 AM
== END 2023-12-29 11:28 | disposition home or self-care (01) ==
LOC: ORPAIN 09:25
PROVIDERS: ATTEND Specialist
DX: M54.16 Radiculopathy, lumbar region
CPT/HCPCS: 64483

== ENCOUNTER → 2024-01-11 | Outpatient (CLI) | payer OTHER ==
[2024-01-11 13:35] VITALS: BP 115/83; PULSE 93; RESP 16; TEMP 97.5
--- NOTE | 2024-01-11 15:07 | P.PAINPG ---
PQRS Measure Charge Sheet Comment: HISTORY OF PRESENT ILLNESS: A 63 yr old male w at side presents today w severe and chronic LBP > 1 yr secondary to post L2-S1 laminectomy syndrome for evaluation s/p R TFESI L5-S1 #3. Pt states he experienced 100 % pain relief x 1 wks s/p procedure. Pt states pain level is provoked at 4 /10 in intensity, constant, localized in the R lumbar spine, predominantly axial, sharp in character w occasional shooting pain down the back of the RLE. Pain is provoked by walking/ standing/ sitting for periods > 15 min. Pain is alleviated by PT in 2020, heat, ice, medications, topical , manual massage, repositioning and rest. Interventional procedures include R Lateral Cutaneous Nerve Block x1, R TFESI L3-L4 x1, R TFESI L2-L3 x2 (Dec 2023) Medications include Flexeril, BioFreeze Gel REVIEW OF ORGAN SYSTEMS: CONSTITUTIONAL: No fevers or chills. No recent weight loss. NEUROLOGICAL: + numbness and tingling along the distal extremities. No seizure disorders or headaches. MUSCULOSKELETAL: + pain PSYCHIATRIC: Denies current depression or suicidal thoughts. Physical Examinations : Constitutional : Cooperative , not in acute distress . Neurologic : Cranial nerve II to XII intact. No focal neurological deficits. Psychiatric : alert & oriented x 3. Matching mood & appropriate affect. Judgment & insight intact. Musculoskeletal : Cervical Spine Motor strength in the deltoid and biceps: Normal right side. Normal Left side Motor strength biceps and the wrist extensors: Normal right side . Normal left side Motor strength in the triceps muscle: Normal right side. Normal left side Deep tendon reflexes: Normal at the biceps. Normal at Brachioradialis. Normal at triceps Vertebral body tenderness to deep palpation over Cervical facet loading test: positive bilaterally Spurling test: positive bilaterally Neck distraction test: positive bilaterally Martha sign: positive bilaterally Lumbar spine +Incisional scars intact Motor strength lower extremities ,thigh and legs 5/5 Right side , 5/5 Left side Deep tendon reflexes : Normal Knee Jerk. Normal Ankle Jerk Vertebral body tenderness over L5 Courtney Test positive R L5-S1 Lumbar facet Loading Test: positive Right / positive Left Range of motion of the lumbar spine Flexion 30 degrees, extension 10 degrees Straight Leg Raise test: Left/ Right positive at degrees Rafaela test: positive right / positive left. Severe tenderness over the Sacroiliac joint on the Right / Left sides Gaenslen test: positive bilaterally Seated flexion test: positive bilaterally. Sacral spine : Severe tenderness over the Sacroiliac joint: right side / left side Range of motion: Flexion of the lumbar spine <60 degrees Range of motion: Extension of the lumbar spine <20 degrees Gaenslen's Test positive Rafaela test: positive right side / left side Thigh Thrust Test Sacral Thrust Test Imaging: CT noncontrast of the lumbar spine from 01/23/[address] noncontrast of the lumbar spine from 07/31/23 reviewed Assessment/ Plan : Post L2-S1 Laminectomy Syndrome Will manage residual pain and may RTC on an as needed basis. All questions answered. I have spent greater than 30 minutes on patient care today. Dr Garcia was available by phone for the evaluation of this patient. The time was used to review the medical records including relevant urine studies and Prescription history (MAPs), review of the available imaging, evaluation and examination of the patient, coordination of care with the medical staff and if applicable referring physicians, as well as creation of the medical record PQRS Narrative: Hx Alcohol Use (MH) No Home Medications: Ambulatory Orders Cyclobenzaprine [Flexeril] 10 mg PO BID 08/17/23 Albuterol Inhaler [Ventolin Hfa Inhaler] 1 - 2 puff INHALATION Q6H PRN 09/30/23 Aspirin 81 mg PO DAILY 09/30/23 Atorvastatin [Lipitor] 20 mg PO DAILY 09/30/23 Fluticasone/Umeclidin/Vilanter [Trelegy Ellipta 200-62.5-25] 1 puff INHALATION DAILY 09/30/23 Diclofenac Sodium Gel [Voltaren 1% Gel] 50 gm TOPICAL BID 30 Days #1 each 12/03/23 Controlled Substance Measures - Controlled Substance Measures Is patient prescribed a controlled substance at discharge?: No
== END | disposition home or self-care (01) ==
LOC: PNWHC3 13:02
PROVIDERS: ATTEND Specialist
DX: M47.816 Spondylosis without myelopathy or radiculopathy, lumbar region (principal); Z98.890 Other specified postprocedural states; F17.200 Nicotine dependence, unspecified, uncomplicated; Z88.8 Allergy status to other drugs, medicaments and biological substances; Z88.5 Allergy status to narcotic agent
CPT/HCPCS: 99211

== ENCOUNTER → 2024-09-23 | Outpatient (CLI) | payer MEDICARE ==
--- NOTE | 2024-09-23 10:26 | CTL ---
EXAMINATION TYPE: CT Low Dose Lung DATE OF EXAM: 09/23/2024 10:15 AM COMPARISON: 09/03/2023.. CLINICAL INDICATION: Male, 64 years old with history of Z12.2 ENCNTR SCREEN FOR MALIGNANT NEOPLASM OF RESP; Current smoker, 1 ppd x 50 years, history of tobacco use. TECHNIQUE: Multiple axial non-contrast scans were obtained from approximately the lung apices through the upper abdomen. Coronal and sagittal reformatted images were obtained. Low dose technique was uti lized. MIP were created on a separate workstation and submitted for review. CT DLP: 60 mGycm, Automated exposure control for dose reduction was used. CT Contrast: Contrast used: None Oral contrast used: None FINDINGS: Lack of intravenous contrast and low dose technique limits the evaluation of the vascular and soft ti ssue structures. LUNGS: No evidence of pulmonary fibrosis. No evidence of focal consolidation, pneumothorax or pleural effusion. Centrilobular emphysema changes. Stable apical scarring in the right lung apex. Nodules: RUL: None. RML: None. RLL: None. TRU: None. LLL: None. AIRWAY: Patent and unremarkable. HEART: Size within normal limits. Moderate coronary artery calcifications present. MEDIASTINUM: No gross evidence of adenopathy. VASCULATURE: No aortic aneurysm. 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 MUSCULOSKELETAL: Mild disc degeneration changes are present throughout the thoracolumbar spine. Fixat ion hardware of the spine appears intact. SOFT TISSUES/LYMPH NODES: Unremarkable. LOWER NECK: No significant findings. UPPER ABDOMEN: No significant findings. IMPRESSION: 1. No clinically significant pulmonary nodules. 2. Moderate to severe emphysema. 3. 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 4. Moderate coronary artery atherosclerosis. CT LUNG RAD AND CT CHEST RECOMMENDATION: Lung-Rad 1 Negative: Continue annual screening with LDCT in 12 months. S Modifier (other clinically significant findings): None Recommend smoking cessation (if current smoker), or continuation of smoking cessation (if prior smoke r). Annual screening for lung cancer with low-dose computed tomography is recommended in adults ages 55 to 77 years who have a 30 pack-year smoking history and currently smoke or have quit within the pa st 15 years. Screening should be discontinued once a person has not smoked for 15 years or develops a health problem that substantially limits life expectancy or the ability or willingness to have curat debbie lung surgery. Lung rads 2022 [email or web address] [facility], , 09/23/2024 10:23 AM
== END | disposition home or self-care (01) ==
LOC: RADCTMAIN 09:55
PROVIDERS: ATTEND Family Medicine
DX: Z12.2 Encounter for screening for malignant neoplasm of respiratory organs (principal); F17.210 Nicotine dependence, cigarettes, uncomplicated; I25.10 Atherosclerotic heart disease of native coronary artery without angina pectoris; I77.810 Thoracic aortic ectasia; J43.2 Centrilobular emphysema
CPT/HCPCS: 71271

== ENCOUNTER → 2024-10-18 | Outpatient (CLI) | payer MEDICARE ==
[2024-10-18 15:18] LABS: ALT 23 U/L (10-49); AST 23 U/L (14-35); Cholesterol 124.00 mg/dL (0.00-200.00); HDL Cholesterol 35.80 mg/dL (40.00-60.00); LDL Cholesterol,Calculated 71.9 mg/dL (0.0-131.0); Triglycerides 81.40 mg/dL (0.00-149.00); VLDL Calculation 16.28 mg/dL (5.00-40.00)
== END | disposition home or self-care (01) ==
LOC: LABWHC1 08:51
PROVIDERS: ATTEND Internal Medicine Cardiovascular Disease
DX: E78.2 Mixed hyperlipidemia (principal)
CPT/HCPCS: 36415; 80061; 84450; 84460

== ENCOUNTER → 2024-10-19 | Outpatient (CLI) | payer MEDICARE ==
--- NOTE | 2024-10-19 11:11 | US ---
EXAMINATION TYPE: US carotid duplex BILAT DATE OF EXAM: 10/19/2024 COMPARISON: US 03/15/2018 CLINICAL INDICATION: Male, 64 years old with history of [id number] OCCLUSION AND [id number] OCCLUSION A ND STENOSIS; Patient states his doctor says his aorta is aneurysmal and wanted to check carotid arter ies. Patient is a smoker and has high cholesterol. Additional History: .... TECHNIQUE: Grayscale, color Doppler and spectral Doppler evaluation of the bilateral carotid systems and vertebral arteries. Indirect Doppler criteria was utilized. FINDINGS: EXAM MEASUREMENTS: RIGHT: Peak Systolic Velocity (PSV) cm/sec ----- Right CCA: 73.8 ----- Right ICA: 96.3 ----- Right ECA: 93.0 ICA/CCA ratio: 1.3 RIGHT: End Diastole cm/sec ----- Right CCA: 25.8 ----- Right ICA: 25.9 ----- Right ECA: 27.0 LEFT: Peak Systolic Velocity (PSV) cm/sec ----- Left CCA: 59.5 ----- Left ICA: 75.6 ----- Left ECA: 68.6 ICA/CCA ratio: 1.3 LEFT: End Diastole cm/sec ----- Left CCA: 21.1 ----- Left ICA: 32.8 ----- Left ECA: 18.0 VERTEBRALS (direction of flow): Right Vertebral: Antegrade Left Vertebral: Antegrade Rhythm: Normal PORTFOLIO MGR NOTES: Plaque seen bilaterally in both bulbs. Mild plaque seen in mid/distal portions of left CCA. Color Doppler imaging shows patency with blood flow throughout the carotid artery. Spectral waveforms are within normal limits. IMPRESSION: Right: Less than 50% stenosis of the carotid bifurcation. Left: Less than 50% stenosis of the carotid bifurcation. Criteria for Assigning % of Stenosis / Diameter reduction (Estimation based on the indirect measurements of the internal carotid artery velocities (ICA PSV). 1. Normal (no stenosis)=ICA PSV < 180 cm/s: ratio < 2.0: ICA EDV<40 cm/s. 2. Less than 50% stenosis=ICA PSV < 180 cm/s: ratio < 2.0: ICA EDV<40 cm/s. 3. 50 to 69% stenosis=ICA PSV of 180 to 230 cm/s: ration 2.0 ? 4.0: ICA EDV 40-100 cm/s. PSV 125-180 cm/sec and ICA/CCA PSV Ratio ? 2.0 is also consistent with 50-69% stenosis 4. Greater than 70% stenosis to near occlusion= ICA PSV > 230 cm/s: ratio > 4.0: ICA EDV > 100 cm/s. 5. Near occlusion= ICA PSV velocities may be low or undetectable: variable ratio and ICA EDV. 6. Total occlusion=unable to detect flow. [facility], , 10/19/2024 11:09 AM
== END | disposition home or self-care (01) ==
LOC: RADUSWWP 10:21
PROVIDERS: ATTEND Family Medicine
DX: I65.23 Occlusion and stenosis of bilateral carotid arteries (principal); F17.200 Nicotine dependence, unspecified, uncomplicated; E78.00 Pure hypercholesterolemia, unspecified
CPT/HCPCS: 93880